=== PATIENT | male | born 1975 | race Caucasian/White ===

== ENCOUNTER → 2017-12-12 | Outpatient (CLI) | payer BC | END | disposition home or self-care (01) | LOC: KCIC MRI 16:40 | DX: S46.012A Strain of muscle(s) and tendon(s) of the rotator cuff of left shoulder, initial encounter (principal); M19.012 Primary osteoarthritis, left shoulder; M25.412 Effusion, left shoulder; X58.XXXA Exposure to other specified factors, initial encounter; Y93.89 Activity, other specified; Y92.89 Other specified places as the place of occurrence of the external cause; Y99.8 Other external cause status | CPT/HCPCS: 73221 ==

== ENCOUNTER 2018-07-16 08:10 | Emergency (ER) | payer BC ==
[~2018-07-16] VITALS: Ht 182.9 cm; Wt 95.3 kg
[~2018-07-16 08:10] MED LIST: AZIT250T6 PO; HYDR-3164 PO; INDO50CA5 PO; LIDO700A4 TP; SERT50TA PO
[2018-07-16 08:37] LABS: BASO % 1 % (0-3); EOS # 0.1 x10^3/uL (0.0-0.7); EOS % 1 % (0-3); HEMATOCRIT 40.9 % (39.0-53.0); HEMOGLOBIN 14.4 g/dL (13.0-17.5); LYMPH # 1.6 x10^3/uL (1.0-4.8); LYMPH % 32 % (24-48); MEAN CORPUSCULAR HEMOGLOBIN 31 pg (25-35); MEAN CORPUSCULAR HGB CONC 35 g/dL (31-37); MEAN CORPUSCULAR VOLUME 87 fL (79-100); MONO # 0.5 x10^3/uL (0.0-1.1); MONO % 9 % (0-9); NEUT # 2.9 x10^3uL (1.8-7.7); NEUT % 57 % (31-73); PLATELET COUNT 178 x10^3/uL (140-400); RED BLOOD COUNT 4.71 x10^6/uL (4.30-5.70); RED CELL DISTRIBUTION WIDTH 13.1 % (11.5-14.5)
--- NOTE | 2018-07-16 08:40 | PHYS DOC ---
Past Medical History Past Medical History: No Pertinent History Past Surgical History: Cholecystectomy Additional Past Surgical Histo: shoulder sx knee sx Alcohol Use: Occasionally Drug Use: None Adult General Chief Complaint Chief Complaint: HYPOGLYCEMIA HPI HPI 43-year-old male presents to ER via EMS from his workplace for c/o dizziness/ shakes. Patient reports he had gastric bypass 1 year 3 months ago and since then he has had recurrent hypoglycemic episodes without definite diagnosis. Pt denies any symptoms prior to the episode denying chest pain, palpitations, dizziness, or nausea and vomiting. Patient states he did eat breakfast this morning and this is similar to previous episodes were all of a sudden he becomes lightheaded feels like he is going to pass out and is found to have low blood sugar. EMS reported initial blood glucose of 50 they gave oral glucose and recheck they reported his blood glucose to be 109. Patient states following glucose his symptoms had improved at this time he is denying any complaints. Patient states he forgot his glucose tablets as he has been carrying them with him due to these episodes. Patient reports only recent illness with sinus infection 1 month ago otherwise reports he has been feeling good. At time of arrival to ER and during initial exam with pt he is denying any complaints. Review of Systems Review of Systems Constitutional: Denies fever or chills [] Eyes: Denies change in visual acuity, redness, or eye pain [] HENT: Denies nasal congestion or sore throat [] Respiratory: Denies cough or shortness of breath [] Cardiovascular: Denies CP/palpitations GI: Denies abdominal pain, nausea, vomiting, bloody stools or diarrhea [] : Denies dysuria or hematuria [] Musculoskeletal: Denies back/neck pain or joint pain [] Integument: Denies rash or skin lesions [] Neurologic: Denies headache, focal weakness or sensory changes. Reports dizziness/lightheadedness and felt shaky Endocrine: Denies polyuria or polydipsia [] All other systems were reviewed and found to be within normal limits, except as documented in this note. Allergies Allergies Allergies Coded Allergies Type Severity Reaction Last Updated Verified naproxen Allergy Intermediate 08/19/18 Yes Physical Exam Physical Exam Constitutional: Well developed, well nourished, no acute distress, non-toxic appearance. Clear speech HENT: Normocephalic, atraumatic, oropharynx moist, nose normal. [] Eyes: 3mm PERRLA, no nystagmus, conjunctiva normal, no discharge. [] Neck: Normal range of motion, no tenderness, supple, no stridor. [] Cardiovascular: Heart rate regular rhythm, no murmur [] Lungs & Thorax: Bilateral breath sounds clear to auscultation. Resp. equal/ nonlabored Abdomen: Bowel sounds normal, soft/obese, no tenderness or distention Skin: Warm, dry Back: No tenderness, full ROM Extremities: No tenderness, no cyanosis, no clubbing, ROM intact, no edema. [] Neurologic: Alert and oriented X 3, normal motor function, normal sensory function, no focal deficits noted. [] Psychologic: Affect normal, judgement normal, mood normal. [] Current Patient Data Vital Signs Lab Values Laboratory Tests Test 07/16/18 08:20 07/16/18 10:39 White Blood Count 5.0 x10^3/uL (4.0-11.0) Red Blood Count 4.71 x10^6/uL (4.30-5.70) Hemoglobin 14.4 g/dL (13.0-17.5) Hematocrit 40.9 % (39.0-53.0) Mean Corpuscular Volume 87 fL (79-100) Mean Corpuscular Hemoglobin 31 pg (25-35) Mean Corpuscular Hemoglobin Concent 35 g/dL (31-37) Red Cell Distribution Width 13.1 % (11.5-14.5) Platelet Count 178 x10^3/uL (140-400) Neutrophils (%) (Auto) 57 % (31-73) Lymphocytes (%) (Auto) 32 % (24-48) Monocytes (%) (Auto) 9 % (0-9) Eosinophils (%) (Auto) 1 % (0-3) Basophils (%) (Auto) 1 % (0-3) Neutrophils # (Auto) 2.9 x10^3uL (1.8-7.7) Lymphocytes # (Auto) 1.6 x10^3/uL (1.0-4.8) Monocytes # (Auto) 0.5 x10^3/uL (0.0-1.1) Eosinophils # (Auto) 0.1 x10^3/uL (0.0-0.7) Basophils # (Auto) 0.0 x10^3/uL (0.0-0.2) Sodium Level 141 mmol/L (136-145) Potassium Level 3.8 mmol/L (3.5-5.1) Chloride Level 104 mmol/L (98-107) Carbon Dioxide Level 32 mmol/L (21-32) Anion Gap 5 (6-14) L Blood Urea Nitrogen 19 mg/dL (8-26) Creatinine 0.9 mg/dL (0.7-1.3) Estimated GFR (Cockcroft-Gault) 91.3 BUN/Creatinine Ratio 21 (6-20) H Glucose Level 87 mg/dL (70-99) Calcium Level 9.3 mg/dL (8.5-10.1) Total Bilirubin 0.6 mg/dL (0.2-1.0) Aspartate Amino Transferase (AST) 24 U/L (15-37) Alanine Aminotransferase (ALT) 30 U/L (16-63) Alkaline Phosphatase 68 U/L (46-116) Total Protein 7.0 g/dL (6.4-8.2) Albumin 3.6 g/dL (3.4-5.0) Albumin/Globulin Ratio 1.1 (1.0-1.7) Glucose (Fingerstick) 137 mg/dL (70-99) H Laboratory Tests 07/16/18 08:20 Laboratory Tests 07/16/18 08:20 EKG EKG [] Radiology/Procedures Radiology/Procedures [] Course & Med Decision Making Course & Med Decision Making Pertinent Labs reviewed. (See chart for details) 0935: Patient continues to report having no symptoms following oral glucose [employer]PER[employer] to ER. Patient at this time is eating breakfast and in no visible distress. Patient's has arrived bedside. Labs were discussed blood sugar was 87. Patient states since his gastric bypass he has lost close to 185 pounds. Patient did have a Rum alcoholic beverage last night which he typically does not have. Discussed possible alcohol absorption and ongoing issues with hypoglycemia. 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 Will monitor for short time longer and recheck blood sugar prior to discharge. 1045: Patient is having no complaints at this time. Recheck Accu-Chek was 137. In-depth conversation was had with patient and his regarding blood glucose. 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 Patient is going to have follow-up with his primary care physician this week to have further testing and evaluation. Patient feels comfortable with home discharge at this time with no additional tests or monitoring. Patient is denying any dizziness, lightheadedness, chest pain, palpitations, or complaints. Patient's labs were normal limits. Patient has remaining nontoxic in appearance and in no distress. Vital signs have been stable. Patient is alert and oriented �3. Discharge instructions discussed and education provided on signs and symptoms to return to ER for. Staff Physician Addendum: I was working in the ER during the course of this patient's visit. I was available for consultation as needed, but I was not directly involved in the care of this patient. Dragon Disclaimer Dragon Disclaimer This electronic medical record was generated, in whole or in part, using a voice recognition dictation system. Departure Departure Impression: Primary Impression: Low blood sugar Disposition: 01 HOME, SELF-CARE Condition: STABLE Referrals: COLLEEN PENA MD (PCP) Patient Instructions: Hypoglycemia (Low Blood Sugar) Additional Instructions: As discussed follow-up with primary doctor for re-evaluation and discuss low blood sugar. As discuss obtain the glucometer from your doctor and keep a blood sugar diary so your doctor can evaluate fluctuations with your readings. KARINE GAN APRN Jul 16, 2018 08:40 LOLA NINO MD Oct 19, 2018 19:35
[2018-07-16 08:48] LABS: CALCIUM 9.3 mg/dL (8.5-10.1); CREATININE 0.9 mg/dL (0.7-1.3); GFR 91.3; POTASSIUM 3.8 mmol/L (3.5-5.1)
[2018-07-16 08:54] LABS: ALBUMIN 3.6 g/dL (3.4-5.0); ALBUMIN/GLOBULIN RATIO 1.1 (1.0-1.7); TOTAL BILIRUBIN 0.6 mg/dL (0.2-1.0)
[2018-07-16 11:30] VITALS: BP 113/70
== END 2018-07-16 11:48 | disposition home or self-care (01) ==
LOC: ER 08:10
DX: E16.2 Hypoglycemia, unspecified (principal); R42 Dizziness and giddiness; Z90.49 Acquired absence of other specified parts of digestive tract; Z98.84 Bariatric surgery status; Z88.5 Allergy status to narcotic agent
CPT/HCPCS: 36415; 80053; 82962; 85025; 99283

== ENCOUNTER 2018-08-14 19:51 | Inpatient (IN) | payer BC ==
[~2018-08-14] VITALS: Ht 182.9 cm; Wt 103.9 kg
[2018-08-14] MEDS ORDERED: ONDANSETRON ODT 4 MG TAB.RAPDIS. PO PRN (22:15)
[2018-08-14] MEDS ORDERED: MORPHINE SULFATE 4 MG/ML VIAL. IV PRN (22:15)
[2018-08-14] MEDS: IV NORMAL SALINE 1000ML BAG 1,000 ML IV SCH (22:25)
[2018-08-14] MEDS: MORPHINE SULFATE 4 MG/ML VIAL. IV PRN (22:26)
[2018-08-14 22:47] VITALS: BP 137/83
[2018-08-15] MEDS ORDERED: MORPHINE SULFATE 4 MG/ML VIAL. IV PRN
[2018-08-15] MEDS: MESALAMINE ER 250 MG CAPSULE.ER PO SCH ×2 (00:04→09:55)
[2018-08-15] MEDS: FAMOTIDINE 20 MG/2 ML VIAL IVP SCH ×2 (00:05→09:50)
[2018-08-15] MEDS ORDERED: PANT20TA2 PO (00:15)
--- NOTE | 2018-08-15 00:25 | NUR ---
follows low carb, no sugar, no carbonatin diet Addendum: 08/15/18 at 0029 by SERA BOWLES RN Amended: Links added.
[2018-08-15 03:00] VITALS: BP 120/76
[2018-08-15] MEDS: MORPHINE SULFATE 4 MG/ML VIAL. IV PRN ×7 (03:08→22:13)
[2018-08-15 04:43] LABS: BASO % 0 % (0-3); EOS # 0.1 x10^3/uL (0.0-0.7); EOS % 2 % (0-3); HEMOGLOBIN 13.5 g/dL (13.0-17.5); LYMPH # 1.6 x10^3/uL (1.0-4.8); LYMPH % 26 % (24-48); MEAN CORPUSCULAR HEMOGLOBIN 30 pg (25-35); MEAN CORPUSCULAR HGB CONC 34 g/dL (31-37); MEAN CORPUSCULAR VOLUME 88 fL (79-100); MONO # 0.5 x10^3/uL (0.0-1.1); MONO % 9 % (0-9); NEUT # 3.7 x10^3uL (1.8-7.7); NEUT % 62 % (31-73); PLATELET COUNT 155 x10^3/uL (140-400); RED BLOOD COUNT 4.55 x10^6/uL (4.30-5.70); RED CELL DISTRIBUTION WIDTH 13.2 % (11.5-14.5); WHITE BLOOD COUNT 5.9 x10^3/uL (4.0-11.0)
[2018-08-15 04:52] LABS: CALCIUM 8.9 mg/dL (8.5-10.1); GFR 80.8; POTASSIUM 4.2 mmol/L (3.5-5.1)
[2018-08-15 07:00] VITALS: BP 112/70
[2018-08-15] MEDS ORDERED: ONDANSETRON ODT 4 MG TAB.RAPDIS. PO PRN (08:30)
[2018-08-15] MEDS ORDERED: PANTOPRAZOLE IV PUSH 40 MG VIAL. IVP ONE (08:30)
--- NOTE | 2018-08-15 09:59 | PDOC1 ---
History and Physical Date of Admission Date of Admission DATE: 08/15/18 TIME: 09:53 Identification/Chief Complaint Chief Complaint Abdominal pain, epigastric area, for 3-4 days Source Source: Caregiver, Chart review, Patient History of Present Illness History of Present Illness 43-year-old male known to me, I last saw him 2015 when he was here admitted for mild case of diverticulitis or colitis which resolved on conservative treatment. Back then his BMI was 45, in the last 15 months he underwent bariatric surgery care of [facility] and lost 188 pounds and BMI is now 31.1. Never had problems post bariatric surgery; He does NOT have significant past medical history only gout on indomethacin when necessary which has not been bothering him lately. He only takes 3 medications, PPI, multivitamins, and calcium at home. History of present illness started about 4-5 days acute onset epigastric pain mostly in the upper abdomen and periumbilical area. Some nausea but no emesis. No diarrhea. Denies recent sick contacts or travels. Denies fever. Transferred from [place]. Acute abdominal series at [facility] is negative. Blood work negative. Requiring high doses of morphine and asks for more. (8mgs q2) We'll try to GI cocktail. No reports of bowel changes. Recent EGD done prior to bariatric surgery apparently normal. Past Medical History Cardiovascular: No pertinent hx Pulmonary: No pertinent hx GI: Diverticulosis Psych: Depression Musculoskeletal: Other Past Surgical History Past Surgical History: Other (recent bariatric surgery at [facility] last 15 months) Family History Family History: No Significant Social History Smoke: No ALCOHOL: occassional Drugs: None Current Medications Current Medications Current Medications Morphine Sulfate (Morphine Sulfate) 2 mg PRN Q2HR PRN IV MODERATE PAIN Last administered on 08/15/18at 00:36; Start 08/14/18 at 22:15; Stop 08/15/18 at 08:21 ; Status DC Morphine Sulfate (Morphine Sulfate) 4 mg PRN Q2HR PRN IV MODERATE PAIN Last administered on 08/14/18at 22:26; Start 08/14/18 at 22:15 Sodium Chloride 1,000 ml @ 75 mls/hr [id number] IV Last administered on at 22:25; Start 08/14/18 at 22:15 Famotidine (Pepcid Vial) 20 mg BID IVP Last administered on 08/15/18at 00:05; Start 08/14/18 at 22:30 Mesalamine (Pentasa) 250 mg [id number] PO Last administered on 08/15/18at 00:04; Start 08/14/18 at 22:30 Ondansetron HCl (Zofran Odt) 4 mg PRN Q8HRS PRN PO NAUSEA/VOMITING 1ST CHOICE Last administered on 08/15/18at 05:39; Start 08/14/18 at 22:15; Stop 08/15/18 at 08:21; Status DC Metronidazole 100 ml @ 100 mls/hr Q8HRS IV Last administered on 08/15/18at 05: 39; Start 08/14/18 at 23:00 Morphine Sulfate (Morphine Sulfate) 6 mg PRN Q2HR PRN IV SEVERE PAIN Last administered on 08/15/18at 00:01; Start 08/15/18 at 00:00; Stop 08/15/18 at 08:21 ; Status DC Morphine Sulfate (Morphine Sulfate) 8 mg PRN Q2HR PRN IV SEVERE PAIN Last administered on 08/15/18at 05:39; Start 08/15/18 at 00:00 Ondansetron HCl (Zofran Odt) 4 mg Q6HRS PRN PO NAUSEA/VOMITING 1ST CHOICE; Start 08/15/18 at 08:30 Oxycodone/ Acetaminophen (Percocet 10/325) 1 tab PRN Q4HRS PRN PO MODERATE TO SEVERE PAIN; Start 08/15/18 at 08:30 Pantoprazole Sodium (Protonix) 40 mg DAILYAC PO ; Start 08/16/18 at 07:30; Status Cancel Pantoprazole Sodium (PROTONIX VIAL for IV PUSH) 40 mg DAILYAC IVP ; Start at 07:30 Pantoprazole Sodium (PROTONIX VIAL for IV PUSH) 40 mg 1X ONCE IVP ; Start 08/15 at 08:30; Stop 08/15/18 at 08:31; Status DC Active Scripts Active Reported Protonix (Pantoprazole Sodium) 20 Mg Tablet.dr 1 Tab PO DAILY Allergies Allergies: Coded Allergies: naproxen (Verified Allergy, Intermediate, 02/24/16) ROS Review of System Asper history of present illness, the rest of ROS 14 point negative Physical Exam General: Alert, Oriented X3, Cooperative, No acute distress HEENT: Atraumatic, PERRLA, EOMI Lungs: Clear to auscultation, Normal air movement Heart: S1S2, RRR, no thrills, no rubs, no gallops Cardiovascular: S1, S2 Abdomen: Normal bowel sounds, Soft, No tenderness, No hepatosplenomegaly, No masses Male Genitals Exam: normal genitalia, normal prostate Rectal Exam: mass PELVIC: Nml ext genitalia Extremities: No clubbing, No cyanosis, No edema, Normal pulses, No tenderness/ swelling Skin: No rashes, No breakdown, No significant lesion Neuro: Normal gait Psych/Mental Status: Mental status NL, Mood NL Vitals Vitals Vital Signs Date Time Temp Pulse Resp B/P (MAP) Pulse Ox O2 Delivery O2 Flow Rate FiO2 08/15/18 07:00 98.2 51 18 112/70 (84) 97 Room Air 98.2 Labs Labs Laboratory Tests Test 08/15/18 04:10 White Blood Count 5.9 x10^3/uL (4.0-11.0) Red Blood Count 4.55 x10^6/uL (4.30-5.70) Hemoglobin 13.5 g/dL (13.0-17.5) Hematocrit 40.0 % (39.0-53.0) Mean Corpuscular Volume 88 fL (79-100) Mean Corpuscular Hemoglobin 30 pg (25-35) Mean Corpuscular Hemoglobin Concent 34 g/dL (31-37) Red Cell Distribution Width 13.2 % (11.5-14.5) Platelet Count 155 x10^3/uL (140-400) Neutrophils (%) (Auto) 62 % (31-73) Lymphocytes (%) (Auto) 26 % (24-48) Monocytes (%) (Auto) 9 % (0-9) Eosinophils (%) (Auto) 2 % (0-3) Basophils (%) (Auto) 0 % (0-3) Neutrophils # (Auto) 3.7 x10^3uL (1.8-7.7) Lymphocytes # (Auto) 1.6 x10^3/uL (1.0-4.8) Monocytes # (Auto) 0.5 x10^3/uL (0.0-1.1) Eosinophils # (Auto) 0.1 x10^3/uL (0.0-0.7) Basophils # (Auto) 0.0 x10^3/uL (0.0-0.2) Sodium Level 139 mmol/L (136-145) Potassium Level 4.2 mmol/L (3.5-5.1) Chloride Level 102 mmol/L (98-107) Carbon Dioxide Level 30 mmol/L (21-32) Anion Gap 7 (6-14) Blood Urea Nitrogen 14 mg/dL (8-26) Creatinine 1.0 mg/dL (0.7-1.3) Estimated GFR (Cockcroft-Gault) 80.8 Glucose Level 101 mg/dL (70-99) Calcium Level 8.9 mg/dL (8.5-10.1) Laboratory Tests Test 08/15/18 04:10 White Blood Count 5.9 x10^3/uL (4.0-11.0) Red Blood Count 4.55 x10^6/uL (4.30-5.70) Hemoglobin 13.5 g/dL (13.0-17.5) Hematocrit 40.0 % (39.0-53.0) Mean Corpuscular Volume 88 fL (79-100) Mean Corpuscular Hemoglobin 30 pg (25-35) Mean Corpuscular Hemoglobin Concent 34 g/dL (31-37) Red Cell Distribution Width 13.2 % (11.5-14.5) Platelet Count 155 x10^3/uL (140-400) Neutrophils (%) (Auto) 62 % (31-73) Lymphocytes (%) (Auto) 26 % (24-48) Monocytes (%) (Auto) 9 % (0-9) Eosinophils (%) (Auto) 2 % (0-3) Basophils (%) (Auto) 0 % (0-3) Neutrophils # (Auto) 3.7 x10^3uL (1.8-7.7) Lymphocytes # (Auto) 1.6 x10^3/uL (1.0-4.8) Monocytes # (Auto) 0.5 x10^3/uL (0.0-1.1) Eosinophils # (Auto) 0.1 x10^3/uL (0.0-0.7) Basophils # (Auto) 0.0 x10^3/uL (0.0-0.2) Sodium Level 139 mmol/L (136-145) Potassium Level 4.2 mmol/L (3.5-5.1) Chloride Level 102 mmol/L (98-107) Carbon Dioxide Level 30 mmol/L (21-32) Anion Gap 7 (6-14) Blood Urea Nitrogen 14 mg/dL (8-26) Creatinine 1.0 mg/dL (0.7-1.3) Estimated GFR (Cockcroft-Gault) 80.8 Glucose Level 101 mg/dL (70-99) Calcium Level 8.9 mg/dL (8.5-10.1) VTE Prophylaxis Ordered VTE Prophylaxis Devices: Yes VTE Pharmacological Prophylaxi: Yes Assessment/Plan Assessment/Plan Abdominal pain, unclear etiology-acute abdominal series negative, blood work negative-await GI consult I do not see the need for GS to see the patient Recent bariatric surgery 15 months ago, [facility]-lost 188 pounds History of gout on indomethacin-has not been bothering him for quite a while now Obesity/overweight BMI 31.1 Plan: trial of GI cocktail Decrease morphine to 4 mg 8 mg every 2 when necessary I did order GI soft - I do not see any for nothing by mouth May cancel GS consult Advance diet as tolerated-await for GI Rounds-if no further further tests might be able to discharge home once tolerating diet ERIC CHAMPION MD Aug 15, 2018 09:59
[2018-08-15 10:00] VITALS: BP 112/75
[2018-08-15] MEDS ORDERED: LIDO:MAALOX 1:1 20 ML SINGLE DOSE. SWSW ONE (10:00)
[2018-08-15] MEDS ORDERED: MAGNESIUM HYDROXIDE 2,400 MG/30 ML ORAL.SUSP. PO PRN (10:00)
[2018-08-15] MEDS ORDERED: POLYETHYLENE GLYCOL 3350 17 GM PACKET. PO PRN (10:00)
--- NOTE | 2018-08-15 10:08 | PDOC2 ---
GI CONSULT Reason For Consult: Abd pain HPI: HPI: 43 y/o male transferred from [facility]. Upper abd pain (epigastric and wrapping around both sides to back) since Saturday morning. No precipitating events. Describes pain as "constant" but difficult to describe character. Some nausea w /o vomiting. Unaffected by eating or stooling. At [facility]: labs unremarkable except AST 67. Note normal amylase and lipase not checked. Acute abd series and CT abd unrevealing. H/o GERD controlled w/ pantoprazole QD for about 1.5 years. No dysphagia. No chronic nausea or abd pain issues. No hematochezia or melena. No constipation or diarrhea. Weight loss of 185 pounds since Melody-en-Y 15 months ago w/ Dr. Perez at Bariatric. Says an EGD was done that day before surgery. Also had a colonoscopy about five years ago after an episode of diverticulitis. Says polyps were removed but he wasn't told when to return for screening. S/p cholecystectomy (can't remember if had stones). Reports fatty liver w/ elevated LFTs prior to gastric bypass - says both resolved now. No pancreas history. No NSAIDs. Positive for C Diff in 2016. After I saw him, I noticed his ordered medications included Pentasa - I called his room to discuss. He denies h/o IBD and says he does not take Pentasa. He also has orders for IV H2 lauryn, PPI, Miralax, and GI cocktail. PMH: PMH: HTN, RICHARD, gout, fatty liver - not an issue since gastric bypass/weight loss depression, GERD, colon polyps, diverticulitis, C Diff, campylobacter Melody-en-Y, vasectomy FH: Family History: Other (adopted) Social History: Smoke: Quit ALCOHOL: occassional (1-2 drinks once or twice weekly) Drugs: None ROS: GEN: Denies fevers, chills, sweats HEENT: Denies blurred vision, sore throat CV: Denies chest pain RESP: Denies shortness of air, cough GI: Per HPI : Denies hematuria, dysuria ENDO: +intentional weight loss NEURO: Denies confusion, dizziness MSK: Denies weakness, joint pain/swelling SKIN: Denies jaundice, pruritus Vitals: Vitals: Vital Signs Date Time Temp Pulse Resp B/P (MAP) Pulse Ox O2 Delivery O2 Flow Rate FiO2 08/15/18 10:07 Room Air 08/15/18 07:00 98.2 51 18 112/70 (84) 97 98.2 Labs: Labs: Laboratory Tests Test 08/15/18 04:10 White Blood Count 5.9 x10^3/uL (4.0-11.0) Red Blood Count 4.55 x10^6/uL (4.30-5.70) Hemoglobin 13.5 g/dL (13.0-17.5) Hematocrit 40.0 % (39.0-53.0) Mean Corpuscular Volume 88 fL (79-100) Mean Corpuscular Hemoglobin 30 pg (25-35) Mean Corpuscular Hemoglobin Concent 34 g/dL (31-37) Red Cell Distribution Width 13.2 % (11.5-14.5) Platelet Count 155 x10^3/uL (140-400) Neutrophils (%) (Auto) 62 % (31-73) Lymphocytes (%) (Auto) 26 % (24-48) Monocytes (%) (Auto) 9 % (0-9) Eosinophils (%) (Auto) 2 % (0-3) Basophils (%) (Auto) 0 % (0-3) Neutrophils # (Auto) 3.7 x10^3uL (1.8-7.7) Lymphocytes # (Auto) 1.6 x10^3/uL (1.0-4.8) Monocytes # (Auto) 0.5 x10^3/uL (0.0-1.1) Eosinophils # (Auto) 0.1 x10^3/uL (0.0-0.7) Basophils # (Auto) 0.0 x10^3/uL (0.0-0.2) Sodium Level 139 mmol/L (136-145) Potassium Level 4.2 mmol/L (3.5-5.1) Chloride Level 102 mmol/L (98-107) Carbon Dioxide Level 30 mmol/L (21-32) Anion Gap 7 (6-14) Blood Urea Nitrogen 14 mg/dL (8-26) Creatinine 1.0 mg/dL (0.7-1.3) Estimated GFR (Cockcroft-Gault) 80.8 Glucose Level 101 mg/dL (70-99) Calcium Level 8.9 mg/dL (8.5-10.1) Allergies: Coded Allergies: naproxen (Verified Allergy, Intermediate, 02/24/16) Medications: Current Medications Medications (Trade) Dose Ordered Sig/Bushra Route PRN Reason Start Time Stop Time Status Last Admin Dose Admin Morphine Sulfate (Morphine Sulfate) 2 mg PRN Q2HR PRN IV MODERATE PAIN 08/14/18 22:15 08/15/18 08:21 DC 08/15/18 00:36 Morphine Sulfate (Morphine Sulfate) 4 mg PRN Q2HR PRN IV MODERATE PAIN 08/14/18 22:15 08/15/18 10:07 Sodium Chloride 1,000 ml @ 75 mls/hr [id number] IV 08/14/18 22:15 08/14/18 22:25 Famotidine (Pepcid Vial) 20 mg BID IVP 08/14/18 22:30 08/15/18 09:50 Mesalamine (Pentasa) 250 mg [id number] PO 08/14/18 22:30 08/15/18 09:55 Ondansetron HCl (Zofran Odt) 4 mg PRN Q8HRS PRN PO NAUSEA/VOMITING 1ST CHOICE 08/14/18 22:15 08/15/18 08:21 DC 08/15/18 05:39 Metronidazole 100 ml @ 100 mls/hr Q8HRS IV 08/14/18 23:00 08/15/18 05:39 Morphine Sulfate (Morphine Sulfate) 6 mg PRN Q2HR PRN IV SEVERE PAIN 08/15/18 00:00 08/15/18 08:21 DC 08/15/18 00:01 Morphine Sulfate (Morphine Sulfate) 8 mg PRN Q2HR PRN IV SEVERE PAIN 08/15/18 00:00 08/15/18 09:53 DC 08/15/18 05:39 Pantoprazole Sodium (PROTONIX VIAL for IV PUSH) 40 mg 1X ONCE IVP 08/15/18 08:30 08/15/18 08:31 DC 08/15/18 09:54 Imaging: Imaging: Please see [facility] records. PE: GEN: NAD HEENT: Atraumatic, PERRL LUNGS: CTAB HEART: RRR ABD: BS+, soft, epigastric discomfort to BUQ EXTREMITY: No edema SKIN: No rashes, no jaundice NEURO/PSYCH: A & O 3 A/P: A/P: Upper abd pain, nausea GERD - on PPI H/o Melody-en-Y CRC screen, h/o polyps - thinks colonoscopy performed ~5 years ago Diverticular disease S/p cholecystectomy -- Unclear why he has Pentasa ordered - he says he does not take this and denies h/ o IBD - would stop this. Will continue PPI and stop H2 lauryn. Okay to try GI cocktail. Additional recs per Dr. Hanson - keep NPO for now. SANDOR ROBERTSON Aug 15, 2018 10:08
--- NOTE | 2018-08-15 10:55 | NUR ---
SW following for discharge planning. Discussed with RN, pt is from home with . RN denied any SW needs at this time. SW will continue to follow.
[2018-08-15 15:00] VITALS: BP 116/83
[2018-08-15] MEDS: IV NORMAL SALINE 1000ML BAG 1,000 ML IV SCH (17:17)
[2018-08-15] MEDS: oxyCODONE/APAP 10/325 1 TAB TABLET PO PRN (18:20)
[2018-08-15 18:40] VITALS: BP 134/94
[2018-08-15] MEDS ORDERED: HYDROmorphone 2 MG/ML VIAL IV ONE (18:45)
--- NOTE | 2018-08-15 18:45 | NUR ---
Pt. called nurse for pain medication after eating dinner. This got to pt. room and found pt. curled over in bed, shaking back and forth, breathing heavy, sweating, holding stomach and making facial grimaces. Vital signs taken BP 134/94 HR 78 O2 100 Temperature 98.7 (oral). This nurse gave pt. PO pain medication. IV pain medication had been given 1 hour prior. This nurse paged and spoke with Dr. Rice. A one time dose of dilaudid was ordered and given to pt. The patient started to feel relief almost immediately. This nurse spoke with pt. about back down on the diet (pt. currently has GI soft, advance diet as tolerated). This nurse will pass information along in shift report and continue to monitor pt.
--- NOTE | 2018-08-15 20:09 | NUR ---
pt still in svere ab pain, will medicate per MD order, will keep NPO for now .
[2018-08-15] MEDS: LIDO:MAALOX 1:1 20 ML SINGLE DOSE. PO PRN (21:09)
[2018-08-15 23:00] VITALS: BP 149/77
[2018-08-16 03:00] VITALS: BP 126/73
[2018-08-16] MEDS: MORPHINE SULFATE 4 MG/ML VIAL. IV PRN ×4 (03:19→10:59)
[2018-08-16] MEDS: IV NORMAL SALINE 1000ML BAG 1,000 ML IV SCH (03:24)
[2018-08-16 07:00] VITALS: BP 117/75
[2018-08-16] MEDS ORDERED: PANTOPRAZOLE IV PUSH 40 MG VIAL. IVP SCH (07:30)
[2018-08-16] MEDS ORDERED: PANTOPRAZOLE 40 MG TABLET.DR. PO SCH ×2 (07:30)
--- NOTE | 2018-08-16 09:47 | PDOC ---
PROGRESS NOTES Chief Complaint Chief Complaint Abdominal pain, unclear etiology-acute abdominal series negative, blood work negative- Recent bariatric surgery- Melody-en-Y bypass 15 months ago, [facility]-lost 188 pounds History of gout on indomethacin-has not been bothering him for quite a while now Obesity/overweight BMI 31.1 History of Present Illness History of Present Illness Still significant abdominal pain and got almost instant relief with IV Dilaudid last night Needed to back down from regular tray to nothing by mouth Plan: unable to DC today unfortunately Dilaudid I made every 3 when necessary Liquid diet then ADA T Hopefully DC tomorrow when tolerating by mouth--discussed my plan with him Vitals Vitals Vital Signs Date Time Temp Pulse Resp B/P (MAP) Pulse Ox O2 Delivery O2 Flow Rate FiO2 08/16/18 08:50 Room Air 08/16/18 07:00 97.8 47 18 117/75 (89) 96 97.8 Physical Exam General: Alert, Oriented X3, Cooperative, No acute distress Heart: Regular rate, Normal S1, Normal S2 Lungs: Clear Abdomen: Normal bowel sounds, Soft, No tenderness, No hepatosplenomegaly, No masses Extremities: No clubbing, No cyanosis, No edema, Normal pulses, No tenderness/ swelling Skin: No rashes, No breakdown, No significant lesion Review of Systems Review of Systems abd pain, nausea, emesis, the rest of ROS 14 point negative Comment Review of Relevant I have reviewed the following items ismael (where applicable) has been applied. Labs Laboratory Tests Test 08/15/18 04:10 White Blood Count 5.9 x10^3/uL (4.0-11.0) Red Blood Count 4.55 x10^6/uL (4.30-5.70) Hemoglobin 13.5 g/dL (13.0-17.5) Hematocrit 40.0 % (39.0-53.0) Mean Corpuscular Volume 88 fL (79-100) Mean Corpuscular Hemoglobin 30 pg (25-35) Mean Corpuscular Hemoglobin Concent 34 g/dL (31-37) Red Cell Distribution Width 13.2 % (11.5-14.5) Platelet Count 155 x10^3/uL (140-400) Neutrophils (%) (Auto) 62 % (31-73) Lymphocytes (%) (Auto) 26 % (24-48) Monocytes (%) (Auto) 9 % (0-9) Eosinophils (%) (Auto) 2 % (0-3) Basophils (%) (Auto) 0 % (0-3) Neutrophils # (Auto) 3.7 x10^3uL (1.8-7.7) Lymphocytes # (Auto) 1.6 x10^3/uL (1.0-4.8) Monocytes # (Auto) 0.5 x10^3/uL (0.0-1.1) Eosinophils # (Auto) 0.1 x10^3/uL (0.0-0.7) Basophils # (Auto) 0.0 x10^3/uL (0.0-0.2) Sodium Level 139 mmol/L (136-145) Potassium Level 4.2 mmol/L (3.5-5.1) Chloride Level 102 mmol/L (98-107) Carbon Dioxide Level 30 mmol/L (21-32) Anion Gap 7 (6-14) Blood Urea Nitrogen 14 mg/dL (8-26) Creatinine 1.0 mg/dL (0.7-1.3) Estimated GFR (Cockcroft-Gault) 80.8 Glucose Level 101 mg/dL (70-99) Calcium Level 8.9 mg/dL (8.5-10.1) Lipase 143 U/L (73-393) Medications Current Medications Morphine Sulfate (Morphine Sulfate) 2 mg PRN Q2HR PRN IV MODERATE PAIN Last administered on 08/15/18at 00:36; Start 08/14/18 at 22:15; Stop 08/15/18 at 08:21 ; Status DC Morphine Sulfate (Morphine Sulfate) 4 mg PRN Q2HR PRN IV MODERATE PAIN Last administered on 08/16/18at 08:50; Start 08/14/18 at 22:15 Sodium Chloride 1,000 ml @ 75 mls/hr [id number] IV Last administered on at 03:24; Start 08/14/18 at 22:15 Famotidine (Pepcid Vial) 20 mg BID IVP Last administered on 08/15/18at 09:50; Start 08/14/18 at 22:30; Stop 08/15/18 at 10:53; Status DC Mesalamine (Pentasa) 250 mg [id number] PO Last administered on 08/15/18 09:55; Start 08/14/18 at 22:30; Stop 08/15/18 at 10:53; Status DC Ondansetron HCl (Zofran Odt) 4 mg PRN Q8HRS PRN PO NAUSEA/VOMITING 1ST CHOICE Last administered on 08/15/18 05:39; Start 08/14/18 at 22:15; Stop 08/15/18 at 08:21; Status DC Metronidazole 100 ml @ 100 mls/hr Q8HRS IV Last administered on 08/16/18 05: 58; Start 08/14/18 at 23:00 Morphine Sulfate (Morphine Sulfate) 6 mg PRN Q2HR PRN IV SEVERE PAIN Last administered on 08/15/18 00:01; Start 08/15/18 at 00:00; Stop 08/15/18 at 08:21 ; Status DC Morphine Sulfate (Morphine Sulfate) 8 mg PRN Q2HR PRN IV SEVERE PAIN Last administered on 08/15/18 05:39; Start 08/15/18 at 00:00; Stop 08/15/18 at 09:53 ; Status DC Ondansetron HCl (Zofran Odt) 4 mg Q6HRS PRN PO NAUSEA/VOMITING 1ST CHOICE; Start 08/15/18 at 08:30 Oxycodone/ Acetaminophen (Percocet 10/325) 1 tab PRN Q4HRS PRN PO MODERATE TO SEVERE PAIN Last administered on 08/15/18at 18:20; Start 08/15/18 at 08:30 Pantoprazole Sodium (Protonix) 40 mg DAILYAC PO ; Start 08/16/18 at 07:30; Status Cancel Pantoprazole Sodium (PROTONIX VIAL for IV PUSH) 40 mg DAILYAC IVP ; Start at 07:30; Stop 08/16/18 at 07:30; Status DC Pantoprazole Sodium (PROTONIX VIAL for IV PUSH) 40 mg 1X ONCE IVP Last administered on 08/15/18at 09:54; Start 08/15/18 at 08:30; Stop 08/15/18 at 08:31 ; Status DC Multi-Ingredient Mouthwash/Gargle (Gi Cocktail) 20 ml 1X ONCE SWSW Last administered on 08/15/18at 11:01; Start 08/15/18 at 10:00; Stop 08/15/18 at 10:01 ; Status DC Multi-Ingredient Mouthwash/Gargle (Gi Cocktail) 20 ml PRN QID PRN PO CHEST PAIN Last administered on 08/15/18at 21:09; Start 08/15/18 at 10:00 Magnesium Hydroxide (Milk Of Magnesia) 2,400 mg PRN DAILY PRN PO CONSTIPATION ( 1st Choice); Start 08/15/18 at 10:00 Polyethylene Glycol (miraLAX PACKET) 17 gm PRN DAILY PRN PO CONSTIPATION (2nd Choice); Start 08/15/18 at 10:00 Pantoprazole Sodium (Protonix) 40 mg DAILYAC PO Last administered on 08/16/18at 06:02; Start 08/16/18 at 07:30 Hydromorphone HCl (Dilaudid) 1 mg 1X ONCE IV Last administered on 08/15/18at 18 :45; Start 08/15/18 at 18:45; Stop 08/15/18 at 18:46; Status DC Hydromorphone HCl (Dilaudid) 1 mg PRN Q4HRS PRN IV MODERATE PAIN, 2ND CHOICE; Start 08/16/18 at 08:30 Active Scripts Active Reported Protonix (Pantoprazole Sodium) 20 Mg Tablet.dr 1 Tab PO DAILY Vitals/I & O Vital Sign - Last 24 Hours 08/15/18 08/15/18 08/15/18 08/15/18 10:00 10:07 14:32 15:00 Temp 98.0 98.0 98.0 98.0 Pulse 47 62 Resp 18 18 B/P (MAP) 112/75 (87) 116/83 (94) Pulse Ox 99 99 O2 Delivery Room Air Room Air Room Air Room Air 08/15/18 08/15/18 08/15/18 08/15/18 17:16 18:20 18:40 18:45 Temp 98.7 98.7 Pulse 78 B/P (MAP) 134/94 (107) O2 Delivery Room Air Room Air Room Air 08/15/18 08/15/18 08/15/18 08/15/18 19:20 19:20 19:46 20:00 Resp 20 20 20 Pulse Ox 99 99 99 O2 Delivery Room Air Room Air Room Air Room Air 08/15/18 08/15/18 08/16/18 08/16/18 22:13 23:00 03:00 03:19 Temp 98.4 97.9 98.4 97.9 Pulse 49 53 Resp 20 18 18 20 B/P (MAP) 149/77 (101) 126/73 (90) Pulse Ox 99 93 100 93 O2 Delivery Room Air Room Air Room Air Room Air 08/16/18 08/16/18 08/16/18 08/16/18 06:01 06:31 07:00 08:50 Temp 97.8 97.8 Pulse 47 Resp 20 18 18 B/P (MAP) 117/75 (89) Pulse Ox 98 98 96 O2 Delivery Room Air Room Air Room Air Room Air Intake and Output 08/15/18 08/15/18 08/16/18 14:59 22:59 06:59 Intake Total 1100 ml 1450 ml Output Total 0 ml Balance 1100 ml 1450 ml ERIC CHAMPION MD Aug 16, 2018 09:46
[2018-08-16 11:00] VITALS: BP 113/77
[2018-08-16] MEDS: HYDROmorphone 2 MG/ML VIAL IV PRN ×3 (12:16→21:16)
[2018-08-16] MEDS: LIDO:MAALOX 1:1 20 ML SINGLE DOSE. PO PRN (14:05)
[2018-08-16 15:00] VITALS: BP 123/72
--- NOTE | 2018-08-16 15:12 | PDOC ---
Subjective: Subjective: Complains of two pains 1) lower abdominal that is constant 5/10 2) upper abdominal that is postprandial Objective: Vital Signs: Vital Signs Date Time Temp Pulse Resp B/P (MAP) Pulse Ox O2 Delivery O2 Flow Rate FiO2 08/16/18 14:04 Room Air 08/16/18 11:00 98.3 48 18 113/77 (89) 99 98.3 Labs: none today Physical Exam: Physical Exam: PE: GEN: NAD HEENT: Atraumatic, PERRL LUNGS: CTAB HEART: RRR ABD: BS+, soft, epigastric discomfort to BUQ EXTREMITY: No edema SKIN: No rashes, no jaundice NEURO/PSYCH: A & O 3 Assessment & Plan: Assessment : Upper abd pain, nausea Lower abd pain GERD - on PPI H/o Melody-en-Y CRC screen, h/o polyps - thinks colonoscopy performed ~5 years ago Diverticular disease S/p cholecystectomy Plan: 1) Trial of Miralax for ?constipation- no BM since Saturday. If no BM, consider Relistor on Dilaudid 2) Start IV PPI 3) If no improvement, EGD early next week SIDRA TRAN MD Aug 16, 2018 15:12
[2018-08-16] MEDS: POLYETHYLENE GLYCOL 3350 17 GM PACKET. PO SCH (16:38)
[2018-08-16 19:00] VITALS: BP 129/84
[2018-08-16 23:00] VITALS: BP 120/76
[2018-08-17 03:23] VITALS: BP 126/76
[2018-08-17] MEDS: HYDROmorphone 2 MG/ML VIAL IV PRN ×5 (04:19→22:15)
[2018-08-17 05:48] LABS: ALBUMIN 3.5 g/dL (3.4-5.0); ALBUMIN/GLOBULIN RATIO 1.2 (1.0-1.7); CALCIUM 9.2 mg/dL (8.5-10.1); GFR 80.8; TOTAL PROTEIN 6.5 g/dL (6.4-8.2)
[2018-08-17 07:21] VITALS: BP 109/59
[2018-08-17] MEDS: PANTOPRAZOLE IV PUSH 40 MG VIAL. IVP SCH (08:00)
[2018-08-17] MEDS: POLYETHYLENE GLYCOL 3350 17 GM PACKET. PO SCH (08:01)
--- NOTE | 2018-08-17 09:14 | PDOC ---
PROGRESS NOTES Chief Complaint Chief Complaint Abdominal pain, unclear etiology-acute abdominal series negative, blood work negative- Persistent emesis Recent bariatric surgery- Melody-en-Y bypass 15 months ago, [facility]-lost 188 pounds History of gout on indomethacin-has not been bothering him for quite a while now Obesity/overweight BMI 31.1 History of Present Illness History of Present Illness Still significant abdominal pain , some relief with IV Dilaudid This is our second attempt to try to advance diet but every time he advances diet, he vomits Now back on liquid diet Acute abdominal series at [facility]-(he was a transfer on admission)-was normal Blood work normal NOn dm Plan: do gastric emptying test I am unsure of the cause of persistent vomiting Maintain liquid diet for now and do not advance for this Saturday Await GI Rounds Saturday Vitals Vitals Vital Signs Date Time Temp Pulse Resp B/P (MAP) Pulse Ox O2 Delivery O2 Flow Rate FiO2 08/17/18 08:42 Room Air 08/17/18 07:21 97.7 46 18 109/59 (76) 100 97.7 Physical Exam General: Alert, Oriented X3, Cooperative, No acute distress Heart: Regular rate, Normal S1, Normal S2 Lungs: Clear Abdomen: Normal bowel sounds, Soft, No tenderness, No hepatosplenomegaly, No masses Extremities: No clubbing, No cyanosis, No edema, Normal pulses, No tenderness/ swelling Skin: No rashes, No breakdown, No significant lesion Labs LABS Laboratory Tests Test 08/17/18 04:40 Sodium Level 138 mmol/L (136-145) Potassium Level 4.0 mmol/L (3.5-5.1) Chloride Level 100 mmol/L (98-107) Carbon Dioxide Level 30 mmol/L (21-32) Anion Gap 8 (6-14) Blood Urea Nitrogen 12 mg/dL (8-26) Creatinine 1.0 mg/dL (0.7-1.3) Estimated GFR (Cockcroft-Gault) 80.8 BUN/Creatinine Ratio 12 (6-20) Glucose Level 85 mg/dL (70-99) Calcium Level 9.2 mg/dL (8.5-10.1) Total Bilirubin 1.0 mg/dL (0.2-1.0) Aspartate Amino Transf (AST/SGOT) 39 U/L (15-37) Alanine Aminotransferase (ALT/SGPT) 62 U/L (16-63) Alkaline Phosphatase 75 U/L (46-116) Total Protein 6.5 g/dL (6.4-8.2) Albumin 3.5 g/dL (3.4-5.0) Albumin/Globulin Ratio 1.2 (1.0-1.7) Review of Systems Review of Systems Persistent vomiting, abdominal pain, no fever, the rest of ROS 14 point negative Comment Review of Relevant I have reviewed the following items ismael (where applicable) has been applied. Labs Laboratory Tests Test 08/17/18 04:40 Sodium Level 138 mmol/L (136-145) Potassium Level 4.0 mmol/L (3.5-5.1) Chloride Level 100 mmol/L (98-107) Carbon Dioxide Level 30 mmol/L (21-32) Anion Gap 8 (6-14) Blood Urea Nitrogen 12 mg/dL (8-26) Creatinine 1.0 mg/dL (0.7-1.3) Estimated GFR (Cockcroft-Gault) 80.8 BUN/Creatinine Ratio 12 (6-20) Glucose Level 85 mg/dL (70-99) Calcium Level 9.2 mg/dL (8.5-10.1) Total Bilirubin 1.0 mg/dL (0.2-1.0) Aspartate Amino Transf (AST/SGOT) 39 U/L (15-37) Alanine Aminotransferase (ALT/SGPT) 62 U/L (16-63) Alkaline Phosphatase 75 U/L (46-116) Total Protein 6.5 g/dL (6.4-8.2) Albumin 3.5 g/dL (3.4-5.0) Albumin/Globulin Ratio 1.2 (1.0-1.7) Laboratory Tests Test 08/17/18 04:40 Sodium Level 138 mmol/L (136-145) Potassium Level 4.0 mmol/L (3.5-5.1) Chloride Level 100 mmol/L (98-107) Carbon Dioxide Level 30 mmol/L (21-32) Anion Gap 8 (6-14) Blood Urea Nitrogen 12 mg/dL (8-26) Creatinine 1.0 mg/dL (0.7-1.3) Estimated GFR (Cockcroft-Gault) 80.8 BUN/Creatinine Ratio 12 (6-20) Glucose Level 85 mg/dL (70-99) Calcium Level 9.2 mg/dL (8.5-10.1) Total Bilirubin 1.0 mg/dL (0.2-1.0) Aspartate Amino Transf (AST/SGOT) 39 U/L (15-37) Alanine Aminotransferase (ALT/SGPT) 62 U/L (16-63) Alkaline Phosphatase 75 U/L (46-116) Total Protein 6.5 g/dL (6.4-8.2) Albumin 3.5 g/dL (3.4-5.0) Albumin/Globulin Ratio 1.2 (1.0-1.7) Medications Current Medications Morphine Sulfate (Morphine Sulfate) 2 mg PRN Q2HR PRN IV MODERATE PAIN Last administered on 08/15/18at 00:36; Start 08/14/18 at 22:15; Stop 08/15/18 at 08:21 ; Status DC Morphine Sulfate (Morphine Sulfate) 4 mg PRN Q2HR PRN IV MODERATE PAIN Last administered on 08/16/18at 10:59; Start 08/14/18 at 22:15 Sodium Chloride 1,000 ml @ 75 mls/hr [id number] IV Last administered on at 03:24; Start 08/14/18 at 22:15; Stop 08/16/18 at 09:45; Status DC Famotidine (Pepcid Vial) 20 mg BID IVP Last administered on 08/15/18at 09:50; Start 08/14/18 at 22:30; Stop 08/15/18 at 10:53; Status DC Mesalamine (Pentasa) 250 mg [id number] PO Last administered on 08/15/18at 09:55; Start 08/14/18 at 22:30; Stop 08/15/18 at 10:53; Status DC Ondansetron HCl (Zofran Odt) 4 mg PRN Q8HRS PRN PO NAUSEA/VOMITING 1ST CHOICE Last administered on 08/15/18at 05:39; Start 08/14/18 at 22:15; Stop 08/15/18 at 08:21; Status DC Metronidazole 100 ml @ 100 mls/hr Q8HRS IV Last administered on 08/17/18at 05: 35; Start 08/14/18 at 23:00 Morphine Sulfate (Morphine Sulfate) 6 mg PRN Q2HR PRN IV SEVERE PAIN Last administered on 08/15/18at 00:01; Start 08/15/18 at 00:00; Stop 08/15/18 at 08:21 ; Status DC Morphine Sulfate (Morphine Sulfate) 8 mg PRN Q2HR PRN IV SEVERE PAIN Last administered on 08/15/18at 05:39; Start 08/15/18 at 00:00; Stop 08/15/18 at 09:53 ; Status DC Ondansetron HCl (Zofran Odt) 4 mg Q6HRS PRN PO NAUSEA/VOMITING 1ST CHOICE; Start 08/15/18 at 08:30 Oxycodone/ Acetaminophen (Percocet 10/325) 1 tab PRN Q4HRS PRN PO MODERATE TO SEVERE PAIN Last administered on 08/15/18at 18:20; Start 08/15/18 at 08:30 Pantoprazole Sodium (Protonix) 40 mg DAILYAC PO ; Start 08/16/18 at 07:30; Status Cancel Pantoprazole Sodium (PROTONIX VIAL for IV PUSH) 40 mg DAILYAC IVP ; Start at 07:30; Stop 08/16/18 at 07:30; Status DC Pantoprazole Sodium (PROTONIX VIAL for IV PUSH) 40 mg 1X ONCE IVP Last administered on 08/15/18at 09:54; Start 08/15/18 at 08:30; Stop 08/15/18 at 08:31 ; Status DC Multi-Ingredient Mouthwash/Gargle (Gi Cocktail) 20 ml 1X ONCE SWSW Last administered on 08/15/18at 11:01; Start 08/15/18 at 10:00; Stop 08/15/18 at 10:01 ; Status DC Multi-Ingredient Mouthwash/Gargle (Gi Cocktail) 20 ml PRN QID PRN PO CHEST PAIN Last administered on 08/16/18at 14:05; Start 08/15/18 at 10:00 Magnesium Hydroxide (Milk Of Magnesia) 2,400 mg PRN DAILY PRN PO CONSTIPATION ( 1st Choice); Start 08/15/18 at 10:00 Polyethylene Glycol (miraLAX PACKET) 17 gm PRN DAILY PRN PO CONSTIPATION (2nd Choice); Start 08/15/18 at 10:00 Pantoprazole Sodium (Protonix) 40 mg DAILYAC PO Last administered on 08/16/18at 06:02; Start 08/16/18 at 07:30; Stop 08/16/18 at 15:13; Status DC Hydromorphone HCl (Dilaudid) 1 mg 1X ONCE IV Last administered on 08/15/18at 18 :45; Start 08/15/18 at 18:45; Stop 08/15/18 at 18:46; Status DC Hydromorphone HCl (Dilaudid) 1 mg PRN Q4HRS PRN IV MODERATE PAIN, 2ND CHOICE Last administered on 08/17/18at 08:42; Start 08/16/18 at 08:30 Pantoprazole Sodium (PROTONIX VIAL for IV PUSH) 40 mg DAILYAC IVP Last administered on 08/17/18at 08:00; Start 08/17/18 at 07:30 Polyethylene Glycol (miraLAX PACKET) 17 gm DAILY PO Last administered on at 08:01; Start 08/16/18 at 17:00 Active Scripts Active Reported Protonix (Pantoprazole Sodium) 20 Mg Tablet.dr 1 Tab PO DAILY Vitals/I & O Vital Sign - Last 24 Hours 08/16/18 08/16/18 08/16/18 08/16/18 10:59 11:00 12:16 12:17 Temp 98.3 98.3 Pulse 48 Resp 18 B/P (MAP) 113/77 (89) Pulse Ox 99 O2 Delivery Room Air Room Air Room Air Room Air 08/16/18 08/16/18 08/16/18 08/16/18 15:00 16:36 19:00 20:00 Temp 98.4 98.1 98.4 98.1 Pulse 52 48 Resp 18 18 B/P (MAP) 123/72 (89) 129/84 (99) Pulse Ox 99 97 O2 Delivery Room Air Room Air Room Air 08/16/18 08/16/18 08/16/18 08/17/18 21:16 22:19 23:00 03:23 Temp 98.1 98.6 98.1 98.6 Pulse 46 47 Resp 18 18 18 18 B/P (MAP) 120/76 (91) 126/76 (93) Pulse Ox 97 98 99 O2 Delivery Room Air 08/17/18 08/17/18 08/17/1808/17/19 04:19 04:52 07:21 08:42 Temp 97.7 97.7 Pulse 46 Resp 18 18 B/P (MAP) 109/59 (76) Pulse Ox 98 98 100 O2 Delivery Room Air Room Air Room Air Room Air Intake and Output 08/16/18 08/16/18 08/17/18 15:00 23:00 07:00 Intake Total 1000 ml 320 ml 340 ml Balance 1000 ml 320 ml 340 ml ERIC CHAMPION MD Aug 17, 2018 09:14
[2018-08-17 10:54] VITALS: BP 119/75
--- NOTE | 2018-08-17 14:44 | RAD ---
Three-view acute abdominal series. HISTORY: Persistent emesis 3 views were taken for an acute abdominal series. Lungs are clear on the PA chest. Heart is normal in size. There is no effusion. There is no free air on the upright view the abdomen or abnormal air-fluid levels. The patient's had a cholecystectomy. There is moderate stool in the colon. The upper abdomen is not evaluated on the supine view. IMPRESSION: 1. Limited study. 2. No acute infiltrates. 3. No bowel obstruction noted. 4. Moderate stool in the colon. Electronically signed by: Michael Wynn MD (08/17/2018 2:41 PM) [facility]
[2018-08-17 15:00] VITALS: BP 117/75
--- NOTE | 2018-08-17 15:58 | PDOC ---
Subjective: Subjective: NO BM. NO nausea. Still with abd pain Objective: Vital Signs: Vital Signs Date Time Temp Pulse Resp B/P (MAP) Pulse Ox O2 Delivery O2 Flow Rate FiO2 08/17/18 15:00 97.7 47 17 117/75 (89) 97 Room Air 97.7 Labs: Laboratory Tests Test 08/17/18 04:40 08/17/18 04:45 Sodium Level 138 mmol/L (136-145) Potassium Level 4.0 mmol/L (3.5-5.1) Chloride Level 100 mmol/L (98-107) Carbon Dioxide Level 30 mmol/L (21-32) Anion Gap 8 (6-14) Blood Urea Nitrogen 12 mg/dL (8-26) Creatinine 1.0 mg/dL (0.7-1.3) Estimated GFR (Cockcroft-Gault) 80.8 BUN/Creatinine Ratio 12 (6-20) Glucose Level 85 mg/dL (70-99) Calcium Level 9.2 mg/dL (8.5-10.1) Total Bilirubin 1.0 mg/dL (0.2-1.0) Aspartate Amino Transf (AST/SGOT) 39 U/L (15-37) Alanine Aminotransferase (ALT/SGPT) 62 U/L (16-63) Alkaline Phosphatase 75 U/L (46-116) Total Protein 6.5 g/dL (6.4-8.2) Albumin 3.5 g/dL (3.4-5.0) Albumin/Globulin Ratio 1.2 (1.0-1.7) Erythrocyte Sedimentation Rate 5 (0-15) Physical Exam: Physical Exam: GEN: NAD HEENT: OP clear CV: S1S2 without murmurs, rubs, or gallops RESP: CTAB without wheezing, rhonchi, or crackles ABD: NABS, Gen TTP EXT: No edema NEURO: AAO x 3 Assessment & Plan: Assessment : Upper abd pain, nausea Lower abd pain GERD - on PPI H/o Melody-en-Y CRC screen, h/o polyps - thinks colonoscopy performed ~5 years ago Diverticular disease S/p cholecystectomy Plan: 1) Trial of Miralax for ?constipation- no BM since Saturday. Acute abdominal series with moderate stool in colon.If no BM,consider Relistor on Dilaudid 2) Start IV PPI 3) If no improvement, EGD early next week SIDRA TRAN MD Aug 17, 2018 15:58
[2018-08-17 19:00] VITALS: BP 126/74
[2018-08-17 22:53] VITALS: BP 115/66
[2018-08-18 02:49] VITALS: BP 129/72
[2018-08-18 07:00] VITALS: BP 119/83
[2018-08-18] MEDS: POLYETHYLENE GLYCOL 3350 17 GM PACKET. PO SCH (07:49)
[2018-08-18] MEDS: PANTOPRAZOLE IV PUSH 40 MG VIAL. IVP SCH (07:49)
[2018-08-18] MEDS: HYDROmorphone 2 MG/ML VIAL IV PRN ×4 (08:54→22:00)
--- NOTE | 2018-08-18 10:09 | PDOC ---
PROGRESS NOTES Chief Complaint Chief Complaint Abdominal pain, unclear etiology-acute abdominal series negative, blood work negative- Persistent emesis - resolved Recent bariatric surgery- Melody-en-Y bypass 15 months ago, [facility]-lost 188 pounds History of gout on indomethacin-has not been bothering him for quite a while now Obesity/overweight BMI 31.1 Transaminitis - AST History of Present Illness History of Present Illness Still significant abdominal pain, some relief with IV Dilaudid This is our second attempt to try to advance diet but every time he advances diet, he has severe epigastric abdominal pain Now back on liquid diet Acute abdominal series at [place]-(he was a transfer on admission)-was normal Blood work nearly normal. AST elevated Still with abdominal pain over the weekend. Unable to advance diet. No BM since last week, has been on opioids Plan: Consider gastric emptying test Maintain liquid diet for now and do not advance, may need NPO for EGD consideration for PUD Await GI Rounds today Upper abd pain, nausea Lower abd pain GERD - on PPI H/o Melody-en-Y CRC screen, h/o polyps - thinks colonoscopy performed ~5 years ago Diverticular disease S/p cholecystectomy Trial of Miralax for ?constipation- no BM since Saturday. Acute abdominal series with moderate stool in colon.If no BM,consider Relistor on Dilaudid Cont IV PPI Vitals Vitals Vital Signs Date Time Temp Pulse Resp B/P (MAP) Pulse Ox O2 Delivery O2 Flow Rate FiO2 08/18/18 08:54 18 96 Room Air 08/18/18 07:00 97.8 80 119/83 (95) 97.8 Physical Exam General: Alert, Oriented X3, Cooperative, No acute distress Heart: Regular rate, Normal S1, Normal S2 Lungs: Clear Abdomen: Normal bowel sounds, Soft, No tenderness, No hepatosplenomegaly, No masses Extremities: No clubbing, No cyanosis, No edema, Normal pulses, No tenderness/ swelling Skin: No rashes, No breakdown, No significant lesion Comment Review of Relevant I have reviewed the following items ismael (where applicable) has been applied. Labs Laboratory Tests Test 08/17/18 04:40 08/17/18 04:45 Sodium Level 138 mmol/L (136-145) Potassium Level 4.0 mmol/L (3.5-5.1) Chloride Level 100 mmol/L (98-107) Carbon Dioxide Level 30 mmol/L (21-32) Anion Gap 8 (6-14) Blood Urea Nitrogen 12 mg/dL (8-26) Creatinine 1.0 mg/dL (0.7-1.3) Estimated GFR (Cockcroft-Gault) 80.8 BUN/Creatinine Ratio 12 (6-20) Glucose Level 85 mg/dL (70-99) Calcium Level 9.2 mg/dL (8.5-10.1) Total Bilirubin 1.0 mg/dL (0.2-1.0) Aspartate Amino Transf (AST/SGOT) 39 U/L (15-37) Alanine Aminotransferase (ALT/SGPT) 62 U/L (16-63) Alkaline Phosphatase 75 U/L (46-116) Total Protein 6.5 g/dL (6.4-8.2) Albumin 3.5 g/dL (3.4-5.0) Albumin/Globulin Ratio 1.2 (1.0-1.7) Erythrocyte Sedimentation Rate 5 (0-15) Medications Current Medications Morphine Sulfate (Morphine Sulfate) 2 mg PRN Q2HR PRN IV MODERATE PAIN Last administered on 08/15/18at 00:36; Start 08/14/18 at 22:15; Stop 08/15/18 at 08:21 ; Status DC Morphine Sulfate (Morphine Sulfate) 4 mg PRN Q2HR PRN IV MODERATE PAIN Last administered on 08/16/18at 10:59; Start 08/14/18 at 22:15 Sodium Chloride 1,000 ml @ 75 mls/hr [id number] IV Last administered on at 03:24; Start 08/14/18 at 22:15; Stop 08/16/18 at 09:45; Status DC Famotidine (Pepcid Vial) 20 mg BID IVP Last administered on 08/15/18at 09:50; Start 08/14/18 at 22:30; Stop 08/15/18 at 10:53; Status DC Mesalamine (Pentasa) 250 mg [id number] PO Last administered on 08/15/18at 09:55; Start 08/14/18 at 22:30; Stop 08/15/18 at 10:53; Status DC Ondansetron HCl (Zofran Odt) 4 mg PRN Q8HRS PRN PO NAUSEA/VOMITING 1ST CHOICE Last administered on 08/15/18at 05:39; Start 08/14/18 at 22:15; Stop 08/15/18 at 08:21; Status DC Metronidazole 100 ml @ 100 mls/hr Q8HRS IV Last administered on 08/17/18at 05: 35; Start 08/14/18 at 23:00; Stop 08/17/18 at 09:11; Status DC Morphine Sulfate (Morphine Sulfate) 6 mg PRN Q2HR PRN IV SEVERE PAIN Last administered on 08/15/18at 00:01; Start 08/15/18 at 00:00; Stop 08/15/18 at 08:21 ; Status DC Morphine Sulfate (Morphine Sulfate) 8 mg PRN Q2HR PRN IV SEVERE PAIN Last administered on 08/15/18at 05:39; Start 08/15/18 at 00:00; Stop 08/15/18 at 09:53 ; Status DC Ondansetron HCl (Zofran Odt) 4 mg Q6HRS PRN PO NAUSEA/VOMITING 1ST CHOICE; Start 08/15/18 at 08:30 Oxycodone/ Acetaminophen (Percocet 10/325) 1 tab PRN Q4HRS PRN PO MODERATE TO SEVERE PAIN Last administered on 08/15/18at 18:20; Start 08/15/18 at 08:30 Pantoprazole Sodium (Protonix) 40 mg DAILYAC PO ; Start 08/16/18 at 07:30; Status Cancel Pantoprazole Sodium (PROTONIX VIAL for IV PUSH) 40 mg DAILYAC IVP ; Start at 07:30; Stop 08/16/18 at 07:30; Status DC Pantoprazole Sodium (PROTONIX VIAL for IV PUSH) 40 mg 1X ONCE IVP Last administered on 08/15/18at 09:54; Start 08/15/18 at 08:30; Stop 08/15/18 at 08:31 ; Status DC Multi-Ingredient Mouthwash/Gargle (Gi Cocktail) 20 ml 1X ONCE SWSW Last administered on 08/15/18at 11:01; Start 08/15/18 at 10:00; Stop 08/15/18 at 10:01 ; Status DC Multi-Ingredient Mouthwash/Gargle (Gi Cocktail) 20 ml PRN QID PRN PO CHEST PAIN Last administered on 08/16/18at 14:05; Start 08/15/18 at 10:00 Magnesium Hydroxide (Milk Of Magnesia) 2,400 mg PRN DAILY PRN PO CONSTIPATION ( 1st Choice); Start 08/15/18 at 10:00 Polyethylene Glycol (miraLAX PACKET) 17 gm PRN DAILY PRN PO CONSTIPATION (2nd Choice); Start 08/15/18 at 10:00 Pantoprazole Sodium (Protonix) 40 mg DAILYAC PO Last administered on 08/16/18at 06:02; Start 08/16/18 at 07:30; Stop 08/16/18 at 15:13; Status DC Hydromorphone HCl (Dilaudid) 1 mg 1X ONCE IV Last administered on 08/15/18at 18 :45; Start 08/15/18 at 18:45; Stop 08/15/18 at 18:46; Status DC Hydromorphone HCl (Dilaudid) 1 mg PRN Q4HRS PRN IV MODERATE PAIN, 2ND CHOICE Last administered on 08/18/18at 08:54; Start 08/16/18 at 08:30 Pantoprazole Sodium (PROTONIX VIAL for IV PUSH) 40 mg DAILYAC IVP Last administered on 08/18/18at 07:49; Start 08/17/18 at 07:30 Polyethylene Glycol (miraLAX PACKET) 17 gm DAILY PO Last administered on at 07:49; Start 08/16/18 at 17:00 Active Scripts Active Reported Protonix (Pantoprazole Sodium) 20 Mg Tablet.dr 1 Tab PO DAILY Vitals/I & O Vital Sign - Last 24 Hours 08/17/18 08/17/18 08/17/18 08/17/18 10:54 12:46 15:00 17:37 Temp 97.5 97.7 97.5 97.7 Pulse 74 47 Resp 18 17 B/P (MAP) 119/75 (90) 117/75 (89) Pulse Ox 100 97 97 O2 Delivery Room Air Room Air Room Air Room Air 08/17/18 08/17/18 08/17/18 08/17/18 19:00 20:03 22:15 22:53 Temp 97.5 98.0 97.5 98.0 Pulse 50 47 Resp 16 18 16 B/P (MAP) 126/74 (91) 115/66 (82) Pulse Ox 99 99 93 O2 Delivery Room Air Room Air Room Air Room Air 08/17/18 08/18/18 08/18/18 08/18/18 22:57 02:49 07:00 08:54 Temp 97.8 97.8 97.8 97.8 Pulse 47 80 Resp 18 14 18 18 B/P (MAP) 129/72 (91) 119/83 (95) Pulse Ox 93 98 94 96 O2 Delivery Room Air Room Air Room Air Room Air MARK MAJOR MD Aug 18, 2018 10:09
[2018-08-18 11:00] VITALS: BP 132/81
[2018-08-18] MEDS: oxyCODONE/APAP 10/325 1 TAB TABLET PO PRN (11:35)
[2018-08-18] MEDS: LIDO:MAALOX 1:1 20 ML SINGLE DOSE. PO PRN (11:35)
--- NOTE | 2018-08-18 13:46 | NUR ---
SW following for discharge planning. Discussed with RN, and no SW needs at this time. SW will continue to follow.
[2018-08-18 15:00] VITALS: BP 132/81
--- NOTE | 2018-08-18 17:27 | PDOC ---
Objective: Vital Signs: Vital Signs Date Time Temp Pulse Resp B/P (MAP) Pulse Ox O2 Delivery O2 Flow Rate FiO2 08/18/18 15:00 97.8 53 18 132/81 (98) 100 Room Air 97.8 PE: GEN: NAD HEENT: Atraumatic, PERRLA LUNGS: CTAB HEART: RRR, no murmurs ABD:Has mild direct tenderness in upper abdomen with no guarding or rebound tenderness. EXTREMITY: No edema SKIN: No rashes, no jaundice NEURO/PSYCH: A & O 3 A/P: A 43 years old male patient with morbid obesity complicated by HUDSON s/p Melody-en -Y gastric bypass surgery 15 months ago.He had lost around 185 ibs since his bariatric surgery. He also has history of C.diff and diverticulitis. He had follow up lower endoscopic exam after diverticulitis with reported removal of colon polyps. Patient currently admitted with postprandial upper abdominal pain. Recommendations - PPI IV BID. - Bowel regimen with Miralax 1-2 BID as needed - Keep patient NPO after midnight. - EGD in am to rule out luminal process including anastomotic ulcers. Thank you for involving us in the care of this interesting patient. JOSEE NINA MD Aug 18, 2018 17:27
[2018-08-18 19:00] VITALS: BP 128/86
[2018-08-18 22:43] VITALS: BP 122/76
[2018-08-19] VITALS (14 sets, daily range): BP systolic 104–138; BP diastolic 59–81
[2018-08-19] MEDS: HYDROmorphone 2 MG/ML VIAL IV PRN ×2 (03:15→10:31)
[2018-08-19] MEDS ORDERED: IV RINGERS,LACTATED 1000ML 1,000 ML IV SCH (08:16)
--- NOTE | 2018-08-19 08:17 | PDOC ---
PROGRESS NOTES Chief Complaint Chief Complaint Abdominal pain, unclear etiology-acute abdominal series negative, blood work negative- Persistent emesis - resolved Recent bariatric surgery- Melody-en-Y bypass 15 months ago, [facility]-lost 188 pounds History of gout on indomethacin-has not been bothering him for quite a while now Obesity/overweight BMI 31.1 Transaminitis - AST History of Present Illness History of Present Illness Mr. 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 Has h/o c. diff and diverticulitis. Acute abdominal series at [place]-(he was a transfer on admission)-was normal Blood work nearly normal. AST elevated Still with abdominal pain over the weekend. Unable to advance diet. No BM since last week, has been on opioids. Still significant abdominal pain, some relief with IV Dilaudid This is our second attempt to try to advance diet but every time he advances diet, he has severe epigastric abdominal pain Now back on liquid diet Plan for EGD this morning - likely has gastritis vs PUD Plan: Consider gastric emptying test Maintain liquid diet for now and do not advance, may need NPO for EGD consideration for PUD Await GI Rounds today Tramadol for pain, try to get off IV meds Upper abd pain, nausea Lower abd pain GERD - on PPI H/o Melody-en-Y CRC screen, h/o polyps - thinks colonoscopy performed ~5 years ago Diverticular disease S/p cholecystectomy Trial of Miralax for ?constipation- no BM since Saturday. Acute abdominal series with moderate stool in colon.If no BM,consider Relistor on Dilaudid Cont IV PPI Vitals Vitals Vital Signs Date Time Temp Pulse Resp B/P (MAP) Pulse Ox O2 Delivery O2 Flow Rate FiO2 08/19/18 08:11 Room Air 08/19/18 07:10 97.6 45 18 138/75 (96) 100 97.6 Physical Exam General: Alert, Oriented X3, Cooperative, No acute distress Heart: Regular rate, Normal S1, Normal S2 Lungs: Clear Abdomen: Normal bowel sounds, Soft, No tenderness, No hepatosplenomegaly, No masses Extremities: No clubbing, No cyanosis, No edema, Normal pulses, No tenderness/ swelling Skin: No rashes, No breakdown, No significant lesion Comment Review of Relevant I have reviewed the following items ismael (where applicable) has been applied. Medications Current Medications Morphine Sulfate (Morphine Sulfate) 2 mg PRN Q2HR PRN IV MODERATE PAIN Last administered on 08/15/18at 00:36; Start 08/14/18 at 22:15; Stop 08/15/18 at 08:21 ; Status DC Morphine Sulfate (Morphine Sulfate) 4 mg PRN Q2HR PRN IV MODERATE PAIN Last administered on 08/16/18at 10:59; Start 08/14/18 at 22:15 Sodium Chloride 1,000 ml @ 75 mls/hr [id number] IV Last administered on at 03:24; Start 08/14/18 at 22:15; Stop 08/16/18 at 09:45; Status DC Famotidine (Pepcid Vial) 20 mg BID IVP Last administered on 08/15/18at 09:50; Start 08/14/18 at 22:30; Stop 08/15/18 at 10:53; Status DC Mesalamine (Pentasa) 250 mg [id number] PO Last administered on 08/15/18at 09:55; Start 08/14/18 at 22:30; Stop 08/15/18 at 10:53; Status DC Ondansetron HCl (Zofran Odt) 4 mg PRN Q8HRS PRN PO NAUSEA/VOMITING 1ST CHOICE Last administered on 08/15/18at 05:39; Start 08/14/18 at 22:15; Stop 08/15/18 at 08:21; Status DC Metronidazole 100 ml @ 100 mls/hr Q8HRS IV Last administered on 08/17/18at 05: 35; Start 08/14/18 at 23:00; Stop 08/17/18 at 09:11; Status DC Morphine Sulfate (Morphine Sulfate) 6 mg PRN Q2HR PRN IV SEVERE PAIN Last administered on 08/15/18at 00:01; Start 08/15/18 at 00:00; Stop 08/15/18 at 08:21 ; Status DC Morphine Sulfate (Morphine Sulfate) 8 mg PRN Q2HR PRN IV SEVERE PAIN Last administered on 08/15/18at 05:39; Start 08/15/18 at 00:00; Stop 08/15/18 at 09:53 ; Status DC Ondansetron HCl (Zofran Odt) 4 mg Q6HRS PRN PO NAUSEA/VOMITING 1ST CHOICE; Start 08/15/18 at 08:30 Oxycodone/ Acetaminophen (Percocet 10/325) 1 tab PRN Q4HRS PRN PO MODERATE TO SEVERE PAIN Last administered on 08/18/18at 11:35; Start 08/15/18 at 08:30 Pantoprazole Sodium (Protonix) 40 mg DAILYAC PO ; Start 08/16/18 at 07:30; Status Cancel Pantoprazole Sodium (PROTONIX VIAL for IV PUSH) 40 mg DAILYAC IVP ; Start at 07:30; Stop 08/16/18 at 07:30; Status DC Pantoprazole Sodium (PROTONIX VIAL for IV PUSH) 40 mg 1X ONCE IVP Last administered on 08/15/18at 09:54; Start 08/15/18 at 08:30; Stop 08/15/18 at 08:31 ; Status DC Multi-Ingredient Mouthwash/Gargle (Gi Cocktail) 20 ml 1X ONCE SWSW Last administered on 08/15/18at 11:01; Start 08/15/18 at 10:00; Stop 08/15/18 at 10:01 ; Status DC Multi-Ingredient Mouthwash/Gargle (Gi Cocktail) 20 ml PRN QID PRN PO CHEST PAIN Last administered on 08/18/18at 11:35; Start 08/15/18 at 10:00 Magnesium Hydroxide (Milk Of Magnesia) 2,400 mg PRN DAILY PRN PO CONSTIPATION ( 1st Choice); Start 08/15/18 at 10:00 Polyethylene Glycol (miraLAX PACKET) 17 gm PRN DAILY PRN PO CONSTIPATION (2nd Choice); Start 08/15/18 at 10:00 Pantoprazole Sodium (Protonix) 40 mg DAILYAC PO Last administered on 08/16/18at 06:02; Start 08/16/18 at 07:30; Stop 08/16/18 at 15:13; Status DC Hydromorphone HCl (Dilaudid) 1 mg 1X ONCE IV Last administered on 08/15/18at 18 :45; Start 08/15/18 at 18:45; Stop 08/15/18 at 18:46; Status DC Hydromorphone HCl (Dilaudid) 1 mg PRN Q4HRS PRN IV MODERATE PAIN, 2ND CHOICE Last administered on 08/19/18at 03:15; Start 08/16/18 at 08:30 Pantoprazole Sodium (PROTONIX VIAL for IV PUSH) 40 mg DAILYAC IVP Last administered on 08/18/18at 07:49; Start 08/17/18 at 07:30 Polyethylene Glycol (miraLAX PACKET) 17 gm DAILY PO Last administered on at 07:49; Start 08/16/18 at 17:00 Active Scripts Active Reported Protonix (Pantoprazole Sodium) 20 Mg Tablet. 1 Tab PO DAILY Vitals/I & O Vital Sign - Last 24 Hours 08/18/18 08/18/18 08/18/18 08/18/18 08:54 11:00 11:35 12:35 Temp 97.8 97.8 Pulse 53 Resp 18 18 16 14 B/P (MAP) 132/81 (98) Pulse Ox 96 100 100 100 O2 Delivery Room Air Room Air Room Air Room Air 08/18/18 08/18/18 08/18/18 08/18/18 13:10 15:00 18:02 18:32 Temp 97.8 97.8 Pulse 53 Resp 16 18 18 16 B/P (MAP) 132/81 (98) Pulse Ox 100 O2 Delivery Room Air Room Air Room Air 08/18/18 08/18/18 08/18/18 08/18/18 19:00 20:30 22:00 22:43 Temp 97.9 97.5 97.9 97.5 Pulse 57 56 Resp 17 16 B/P (MAP) 128/86 (100) 122/76 (91) Pulse Ox 99 99 99 O2 Delivery Room Air Room Air Room Air Room Air 08/19/18 08/19/18 08/19/18 08/19/18 03:00 03:15 03:45 07:10 Temp 97.7 97.6 97.7 97.6 Pulse 60 45 Resp 18 18 B/P (MAP) 116/76 (89) 138/75 (96) Pulse Ox 100 100 100 100 O2 Delivery Room Air Room Air Room Air Room Air 08/19/18 08:11 O2 Delivery Room Air Intake and Output 08/18/18 08/18/18 08/19/18 14:59 22:59 06:59 Intake Total 0 ml 0 ml Balance 0 ml 0 ml MARK MAJOR MD Aug 19, 2018 08:17
[2018-08-19] MEDS ORDERED: LIDOCAINE 1% PF 2 ML VIAL. ID PRN (08:30)
[2018-08-19] MEDS ORDERED: MIDAZOLAM HCL/PF 2 MG/2 ML VIAL. IV PRN (08:30)
[2018-08-19] MEDS ORDERED: fentaNYL PF VIAL 100 MCG/2 ML VIAL IV PRN ×2 (08:30)
[2018-08-19] MEDS: POLYETHYLENE GLYCOL 3350 17 GM PACKET. PO SCH (08:46)
[2018-08-19] MEDS ORDERED: PROPOFOL 20 ML IV ONE ×2 (08:49→08:50)
[2018-08-19] MEDS: PANTOPRAZOLE IV PUSH 40 MG VIAL. IVP SCH (10:30)
[2018-08-19] MEDS: oxyCODONE/APAP 10/325 1 TAB TABLET PO PRN (12:27)
--- NOTE | 2018-08-19 14:49 | NUR ---
SW following. Discussed with RN, RN advised no SW needs at this time. SW will continue to follow.
[2018-08-19] MEDS: traMADol 50 MG TABLET PO PRN (16:21)
[2018-08-19] MEDS: HYDROcodone/APAP 5/325MG 1 TAB TABLET PO PRN ×2 (17:57→23:53)
[2018-08-20 03:00] VITALS: BP 127/64
[2018-08-20] MEDS: HYDROmorphone 2 MG/ML VIAL IV PRN (06:16)
[2018-08-20 07:00] VITALS: BP 127/64
[2018-08-20] MEDS: PANTOPRAZOLE IV PUSH 40 MG VIAL. IVP SCH ×2 (07:30→17:45)
--- NOTE | 2018-08-20 07:47 | PDOC ---
PROGRESS NOTES Chief Complaint Chief Complaint Abdominal pain, unclear etiology-acute abdominal series negative, blood work negative- Persistent emesis - resolved Recent bariatric surgery- Melody-en-Y bypass 15 months ago, [facility]-lost 188 pounds History of gout on indomethacin-has not been bothering him for quite a while now Obesity/overweight BMI 31.1 Transaminitis - AST History of Present Illness History of Present Illness Mr. 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 Has h/o c. diff and diverticulitis. Acute abdominal series at [facility]-(he was a transfer on admission)-was normal Blood work nearly normal. AST elevated Still with abdominal pain over the weekend. Unable to advance diet. No BM since last week, has been on opioids. 08/19: EGD with no significant PUD per GI, no anastomotic lesions, still with pain on advancement of diet. I had a long discussion about planning to premedicate with tramadol prior to eating and to try to get a small bowel follow through series. Still significant abdominal pain, some relief with oral meds prior to eating, taking less IV Dilaudid This is our third attempt to try to advance diet but every time he advances diet , he has severe epigastric abdominal pain. Will get back on liquid diet and try GI soft tonight Plan: Consider gastric emptying test Maintain liquid diet for now and do advance if ok with GI GI wishes to consult general surgery Tramadol for pain, try to get off IV meds Upper abd pain, nausea Lower abd pain GERD - on PPI H/o Melody-en-Y CRC screen, h/o polyps - thinks colonoscopy performed ~5 years ago Diverticular disease S/p cholecystectomy Trial of Miralax for ?constipation- no BM since Saturday. Acute abdominal series with moderate stool in colon.If no BM,consider Relistor on Dilaudid Cont IV PPI Vitals Vitals Vital Signs Date Time Temp Pulse Resp B/P (MAP) Pulse Ox O2 Delivery O2 Flow Rate FiO2 08/20/18 07:00 97.0 46 20 127/64 (85) 95 Room Air 2.0 97.0 Physical Exam General: Alert, Oriented X3, Cooperative, No acute distress Heart: Regular rate, Normal S1, Normal S2 Lungs: Clear Abdomen: Normal bowel sounds, Soft, No tenderness, No hepatosplenomegaly, No masses Extremities: No clubbing, No cyanosis, No edema, Normal pulses, No tenderness/ swelling Skin: No rashes, No breakdown, No significant lesion Comment Review of Relevant I have reviewed the following items ismael (where applicable) has been applied. Medications Current Medications Morphine Sulfate (Morphine Sulfate) 2 mg PRN Q2HR PRN IV MODERATE PAIN Last administered on 08/15/18at 00:36; Start 08/14/18 at 22:15; Stop 08/15/18 at 08:21 ; Status DC Morphine Sulfate (Morphine Sulfate) 4 mg PRN Q2HR PRN IV MODERATE PAIN Last administered on 08/16/18at 10:59; Start 08/14/18 at 22:15 Sodium Chloride 1,000 ml @ 75 mls/hr [id number] IV Last administered on at 03:24; Start 08/14/18 at 22:15; Stop 08/16/18 at 09:45; Status DC Famotidine (Pepcid Vial) 20 mg BID IVP Last administered on 08/15/18at 09:50; Start 08/14/18 at 22:30; Stop 08/15/18 at 10:53; Status DC Mesalamine (Pentasa) 250 mg [id number] PO Last administered on 08/15/18at 09:55; Start 08/14/18 at 22:30; Stop 08/15/18 at 10:53; Status DC Ondansetron HCl (Zofran Odt) 4 mg PRN Q8HRS PRN PO NAUSEA/VOMITING 1ST CHOICE Last administered on 08/15/18at 05:39; Start 08/14/18 at 22:15; Stop 08/15/18 at 08:21; Status DC Metronidazole 100 ml @ 100 mls/hr Q8HRS IV Last administered on 08/17/18at 05: 35; Start 08/14/18 at 23:00; Stop 08/17/18 at 09:11; Status DC Morphine Sulfate (Morphine Sulfate) 6 mg PRN Q2HR PRN IV SEVERE PAIN Last administered on 08/15/18at 00:01; Start 08/15/18 at 00:00; Stop 08/15/18 at 08:21 ; Status DC Morphine Sulfate (Morphine Sulfate) 8 mg PRN Q2HR PRN IV SEVERE PAIN Last administered on 08/15/18at 05:39; Start 08/15/18 at 00:00; Stop 08/15/18 at 09:53 ; Status DC Ondansetron HCl (Zofran Odt) 4 mg Q6HRS PRN PO NAUSEA/VOMITING 1ST CHOICE; Start 08/15/18 at 08:30 Oxycodone/ Acetaminophen (Percocet 10/325) 1 tab PRN Q4HRS PRN PO MODERATE TO SEVERE PAIN Last administered on 08/19/18at 12:27; Start 08/15/18 at 08:30; Stop 08/19/18 at 13:41; Status DC Pantoprazole Sodium (Protonix) 40 mg DAILYAC PO ; Start 08/16/18 at 07:30; Status Cancel Pantoprazole Sodium (PROTONIX VIAL for IV PUSH) 40 mg DAILYAC IVP ; Start at 07:30; Stop 08/16/18 at 07:30; Status DC Pantoprazole Sodium (PROTONIX VIAL for IV PUSH) 40 mg 1X ONCE IVP Last administered on 08/15/18at 09:54; Start 08/15/18 at 08:30; Stop 08/15/18 at 08:31 ; Status DC Multi-Ingredient Mouthwash/Gargle (Gi Cocktail) 20 ml 1X ONCE SWSW Last administered on 08/15/18at 11:01; Start 08/15/18 at 10:00; Stop 08/15/18 at 10:01 ; Status DC Multi-Ingredient Mouthwash/Gargle (Gi Cocktail) 20 ml PRN QID PRN PO CHEST PAIN Last administered on 08/18/18at 11:35; Start 08/15/18 at 10:00 Magnesium Hydroxide (Milk Of Magnesia) 2,400 mg PRN DAILY PRN PO CONSTIPATION ( 1st Choice); Start 08/15/18 at 10:00 Polyethylene Glycol (miraLAX PACKET) 17 gm PRN DAILY PRN PO CONSTIPATION (2nd Choice); Start 08/15/18 at 10:00 Pantoprazole Sodium (Protonix) 40 mg DAILYAC PO Last administered on 08/16/18at 06:02; Start 08/16/18 at 07:30; Stop 08/16/18 at 15:13; Status DC Hydromorphone HCl (Dilaudid) 1 mg 1X ONCE IV Last administered on 08/15/18at 18 :45; Start 08/15/18 at 18:45; Stop 08/15/18 at 18:46; Status DC Hydromorphone HCl (Dilaudid) 1 mg PRN Q4HRS PRN IV MODERATE PAIN, 2ND CHOICE Last administered on 08/20/18at 06:16; Start 08/16/18 at 08:30 Pantoprazole Sodium (PROTONIX VIAL for IV PUSH) 40 mg DAILYAC IVP Last administered on 08/19/18at 10:30; Start 08/17/18 at 07:30 Polyethylene Glycol (miraLAX PACKET) 17 gm DAILY PO Last administered on at 07:49; Start 08/16/18 at 17:00 Midazolam HCl (Versed) 2 mg PRN 1X PRN IV PRIOR TO PROCEDURE; Start 08/19/18 at 08:30; Stop 08/20/18 at 08:29 Fentanyl Citrate (Fentanyl 2ml Vial) 25 mcg PRN Q5MIN PRN IV X 2 DOSES FOR PAIN ; Start 08/19/18 at 08:30; Stop 08/20/18 at 08:29 Fentanyl Citrate (Fentanyl 2ml Vial) 50 mcg PRN Q5MIN PRN IV X 2 DOSES FOR PAIN ; Start 08/19/18 at 08:30; Stop 08/20/18 at 08:29 Ringer's Solution 1,000 ml @ 125 mls/hr Q8H IV Last administered on 08/19/18at 08:19; Start 08/19/18 at 08:16; Stop 08/19/18 at 11:08; Status DC Lidocaine HCl (Xylocaine-Mpf 1% 2ml Vial) 2 ml 1X PRN PRN ID IV START; Start at 08:30; Stop 08/20/18 at 08:29 Propofol 20 ml @ As Directed STK-MED ONCE IV ; Start 08/19/18 at 08:49; Stop at 08:50; Status DC Propofol 20 ml @ As Directed STK-MED ONCE IV ; Start 08/19/18 at 08:50; Stop at 08:51; Status DC Tramadol HCl (Ultram) 50 mg PRN Q6HRS PRN PO MILD PAIN Last administered on at 16:21; Start 08/19/18 at 13:45 Acetaminophen/ Hydrocodone Bitart (Lortab 5/325) 1 tab PRN Q6HRS PRN PO MODERATE - SEVERE PAIN Last administered on 08/19/18at 23:53; Start 08/19/18 at 13:45 Active Scripts Active Reported Protonix (Pantoprazole Sodium) 20 Mg Tablet. 1 Tab PO DAILY Vitals/I & O Vital Sign - Last 24 Hours 08/19/18 08/19/18 08/19/18 08/19/18 08:11 08:15 09:26 09:41 Temp 97.1 97.0 97.1 97.0 Pulse 50 60 61 Resp 20 18 20 B/P (MAP) 139/76 141/79 Pulse Ox 100 99 99 O2 Delivery Room Air Nasal Cannula Room Air O2 Flow Rate 2 08/19/18 08/19/18 08/19/18 08/19/18 09:46 09:55 10:31 10:35 Temp 98.3 98.3 Pulse 50 53 Resp 20 18 B/P (MAP) 130/68 122/81 (95) Pulse Ox 98 100 O2 Delivery Room Air Room Air Room Air Room Air 08/19/18 08/19/18 08/19/18 08/19/18 10:45 11:00 11:04 11:15 Pulse 46 44 52 Resp 20 B/P (MAP) 121/76 (91) 129/74 (92) 126/75 (92) Pulse Ox 99 100 98 100 O2 Delivery Room Air Room Air Room Air Room Air O2 Flow Rate 2.0 08/19/18 08/19/18 08/19/18 08/19/18 11:30 12:00 12:27 12:30 Pulse 54 55 55 B/P (MAP) 121/59 (79) 123/76 (92) 120/75 (90) Pulse Ox 100 100 100 O2 Delivery Room Air Room Air Room Air Room Air 08/19/18 08/19/18 08/19/18 08/19/18 13:00 13:27 14:00 15:00 Pulse 50 47 51 Resp 20 20 B/P (MAP) 104/65 (78) 119/71 (87) 122/75 (91) Pulse Ox 98 100 100 100 O2 Delivery Room Air Room Air Room Air Room Air O2 Flow Rate 2.0 08/19/18 08/19/18 08/19/18 08/19/18 16:21 17:18 17:57 19:00 Temp 97.9 97.9 Pulse 49 Resp 20 B/P (MAP) 116/74 (88) Pulse Ox 100 98 O2 Delivery Room Air Room Air Room Air Room Air O2 Flow Rate 2.0 08/19/18 08/19/18 08/20/18 08/20/18 20:00 23:00 03:00 07:00 Temp 98.0 97.0 97.0 98.0 97.0 97.0 Pulse 47 62 46 Resp 20 20 20 B/P (MAP) 125/80 (95) 127/64 (85) 127/64 (85) Pulse Ox 98 96 95 O2 Delivery Room Air Room Air Room Air Room Air O2 Flow Rate 2.0 Intake and Output 08/19/18 08/19/18 08/20/18 14:59 22:59 06:59 Intake Total 740 ml 370 ml Output Total 0 ml Balance 740 ml 370 ml 0 ml MARK MAJOR MD Aug 20, 2018 07:47
[2018-08-20] MEDS: POLYETHYLENE GLYCOL 3350 17 GM PACKET. PO SCH (09:00)
[2018-08-20] MEDS ORDERED: BARIUM SULFATE 60% 355 ML SUSP PO ONE (09:30)
--- NOTE | 2018-08-20 11:15 | PDOC ---
Objective: Objective: D/w Dr. Holcomb this morning. D/w Dr. Hanson twice yesterday, called RN yesterday to order UGI series for today. 1 stool charted 08/19. Looks like was up to a full liquid diet (though NPO today for UGI). Vital Signs: Vital Signs Date Time Temp Pulse Resp B/P (MAP) Pulse Ox O2 Delivery O2 Flow Rate FiO2 08/20/18 07:00 97.0 46 20 127/64 (85) 95 Room Air 2.0 97.0 Imaging: Acute Abd Series 08/17/18 IMPRESSION: 1. Limited study. 2. No acute infiltrates. 3. No bowel obstruction noted. 4. Moderate stool in the colon. EGD 08/19/18 regular Z-line 41cm from incisors normal esophagus melody-en-y gastrojejunostomy w/ gastrojejunal anastomosis characterized by non- bleeding denuded mucosa and visible sutures (biopsied) normal examined jejunum PE: out of room A/P: Post-prandial abd pain s/p Melody-en-Y -- Out of room this morning and again when returned w/ Dr. Hanson - will follow-up when returns from imaging. Pain seems out of proportion considering endoscopic exam findings as above. Official report still pending, reviewed UGI w/ Dr. Hanson - doesn't look like blind loop syndrome, but will ask Dr. Hall to see - they discussed via phone. Returned to see pt this afternoon - discussed EGD and UGI results. Ongoing pain - "never below a 4." Lortab and Dilaudid help some, Tramadol and Morphine do not. Also thought GI cocktail was helpful but doesn't last very long. Pain is constant but worse after eating. Is careful to only eat very small portions - tolerated full liquids (soup) for lunch, plans to try GI soft for dinner. Stooled yesterday - understand rationale of using Miralax w/ ongoing use of narcotics. SANDOR ROBERTSON Aug 20, 2018 11:15
--- NOTE | 2018-08-20 13:13 | NUR ---
SW following for discharge planning. Discussed with RN, pt having an upper GI procedure today. Possibility of discharge today. SW will continue to follow.
--- NOTE | 2018-08-20 14:05 | RAD ---
Upper GI with small bowel follow-through, 08/20/2018: History: Abdominal pain after eating, previous gastric bypass surgery. The study was performed utilizing thin liquid barium. 2.8 minutes of fluoroscopy time was utilized. 9 static and dynamic fluoroscopic sequences were recorded. The swallowing mechanism is intact. The esophageal peristalsis is normal. There has been previous gastric surgery with a jejunostomy. The ingested contrast readily flows into the gastric pouch and through the gastrojejunostomy site into the small bowel. There is no evidence of obstruction. No ulceration is identified. The small bowel loops are of normal caliber with no evidence of fold thickening. The barium reached the colon at 2 hours and 45 minutes. The terminal ileum is unremarkable. IMPRESSION: 1. The gastric pouch is unremarkable without evidence of obstruction or marginal ulceration. 2. No significant small bowel abnormality is detected.
[2018-08-20] MEDS: traMADol 50 MG TABLET PO PRN (14:06)
[2018-08-20 14:43] VITALS: BP 141/76
[2018-08-20] MEDS ORDERED: DICYCLOMINE HCL 10 MG CAPSULE PO PRN (14:45)
--- NOTE | 2018-08-20 15:28 | PDOC2 ---
CONSULT Date of Consult Date of Consult DATE: 08/20/18 TIME: 15:24 Reason for Consult Reason for Consult: Epigastric pain, anastomotic ulcer Referring Physician Referring Physician: Valentin Identification/Chief Complaint Chief Complaint Epigastric abd pain Source Source: Chart review, Patient History of Present Illness Reason for Visit: 43 yo M s/p gastric bypass 15 months ago with 180 lbs weight loss. He was doing well until within the last few days developed pain in epigastric area. Always present, but worsens within a few minutes of eating. No n/v, F/c Past Medical History Cardiovascular: No pertinent hx Pulmonary: No pertinent hx GI: Diverticulosis Psych: Depression Musculoskeletal: Other Past Surgical History Past Surgical History: Other (recent bariatric surgery at [facility] last 15 months) Family History Family History: No Significant Social History No ALCOHOL: occassional (1-2 drinks once or twice weekly) Drugs: None Current Medications Current Medications Current Medications Morphine Sulfate (Morphine Sulfate) 2 mg PRN Q2HR PRN IV MODERATE PAIN Last administered on 08/15/18at 00:36; Start 08/14/18 at 22:15; Stop 08/15/18 at 08:21 ; Status DC Morphine Sulfate (Morphine Sulfate) 4 mg PRN Q2HR PRN IV MODERATE PAIN Last administered on 08/16/18at 10:59; Start 08/14/18 at 22:15 Sodium Chloride 1,000 ml @ 75 mls/hr [id number] IV Last administered on at 03:24; Start 08/14/18 at 22:15; Stop 08/16/18 at 09:45; Status DC Famotidine (Pepcid Vial) 20 mg BID IVP Last administered on 08/15/18at 09:50; Start 08/14/18 at 22:30; Stop 08/15/18 at 10:53; Status DC Mesalamine (Pentasa) 250 mg [id number] PO Last administered on 08/15/18at 09:55; Start 08/14/18 at 22:30; Stop 08/15/18 at 10:53; Status DC Ondansetron HCl (Zofran Odt) 4 mg PRN Q8HRS PRN PO NAUSEA/VOMITING 1ST CHOICE Last administered on 08/15/18at 05:39; Start 08/14/18 at 22:15; Stop 08/15/18 at 08:21; Status DC Metronidazole 100 ml @ 100 mls/hr Q8HRS IV Last administered on 08/17/18at 05: 35; Start 08/14/18 at 23:00; Stop 08/17/18 at 09:11; Status DC Morphine Sulfate (Morphine Sulfate) 6 mg PRN Q2HR PRN IV SEVERE PAIN Last administered on 08/15/18at 00:01; Start 08/15/18 at 00:00; Stop 08/15/18 at 08:21 ; Status DC Morphine Sulfate (Morphine Sulfate) 8 mg PRN Q2HR PRN IV SEVERE PAIN Last administered on 08/15/18 05:39; Start 08/15/18 at 00:00; Stop 08/15/18 at 09:53 ; Status DC Ondansetron HCl (Zofran Odt) 4 mg Q6HRS PRN PO NAUSEA/VOMITING 1ST CHOICE; Start 08/15/18 at 08:30 Oxycodone/ Acetaminophen (Percocet 10/325) 1 tab PRN Q4HRS PRN PO MODERATE TO SEVERE PAIN Last administered on 08/19/18at 12:27; Start 08/15/18 at 08:30; Stop 08/19/18 at 13:41; Status DC Pantoprazole Sodium (Protonix) 40 mg DAILYAC PO ; Start 08/16/18 at 07:30; Status Cancel Pantoprazole Sodium (PROTONIX VIAL for IV PUSH) 40 mg DAILYAC IVP ; Start at 07:30; Stop 08/16/18 at 07:30; Status DC Pantoprazole Sodium (PROTONIX VIAL for IV PUSH) 40 mg 1X ONCE IVP Last administered on 08/15/18at 09:54; Start 08/15/18 at 08:30; Stop 08/15/18 at 08:31 ; Status DC Multi-Ingredient Mouthwash/Gargle (Gi Cocktail) 20 ml 1X ONCE SWSW Last administered on 08/15/18at 11:01; Start 08/15/18 at 10:00; Stop 08/15/18 at 10:01 ; Status DC Multi-Ingredient Mouthwash/Gargle (Gi Cocktail) 20 ml PRN QID PRN PO CHEST PAIN Last administered on 08/18/18at 11:35; Start 08/15/18 at 10:00 Magnesium Hydroxide (Milk Of Magnesia) 2,400 mg PRN DAILY PRN PO CONSTIPATION ( 1st Choice); Start 08/15/18 at 10:00 Polyethylene Glycol (miraLAX PACKET) 17 gm PRN DAILY PRN PO CONSTIPATION (2nd Choice); Start 08/15/18 at 10:00 Pantoprazole Sodium (Protonix) 40 mg DAILYAC PO Last administered on 08/16/18at 06:02; Start 08/16/18 at 07:30; Stop 08/16/18 at 15:13; Status DC Hydromorphone HCl (Dilaudid) 1 mg 1X ONCE IV Last administered on 08/15/18at 18 :45; Start 08/15/18 at 18:45; Stop 08/15/18 at 18:46; Status DC Hydromorphone HCl (Dilaudid) 1 mg PRN Q4HRS PRN IV MODERATE PAIN, 2ND CHOICE Last administered on 08/20/18at 06:16; Start 08/16/18 at 08:30 Pantoprazole Sodium (PROTONIX VIAL for IV PUSH) 40 mg DAILYAC IVP Last administered on 08/19/18at 10:30; Start 08/17/18 at 07:30; Stop 08/20/18 at 11:16 ; Status DC Polyethylene Glycol (miraLAX PACKET) 17 gm DAILY PO Last administered on at 07:49; Start 08/16/18 at 17:00 Midazolam HCl (Versed) 2 mg PRN 1X PRN IV PRIOR TO PROCEDURE; Start 08/19/18 at 08:30; Stop 08/20/18 at 08:29; Status DC Fentanyl Citrate (Fentanyl 2ml Vial) 25 mcg PRN Q5MIN PRN IV X 2 DOSES FOR PAIN ; Start 08/19/18 at 08:30; Stop 08/20/18 at 08:29; Status DC Fentanyl Citrate (Fentanyl 2ml Vial) 50 mcg PRN Q5MIN PRN IV X 2 DOSES FOR PAIN ; Start 08/19/18 at 08:30; Stop 08/20/18 at 08:29; Status DC Ringer's Solution 1,000 ml @ 125 mls/hr Q8H IV Last administered on 08/19/18at 08:19; Start 08/19/18 at 08:16; Stop 08/19/18 at 11:08; Status DC Lidocaine HCl (Xylocaine-Mpf 1% 2ml Vial) 2 ml 1X PRN PRN ID IV START; Start at 08:30; Stop 08/20/18 at 08:29; Status DC Propofol 20 ml @ As Directed STK-MED ONCE IV ; Start 08/19/18 at 08:49; Stop at 08:50; Status DC Propofol 20 ml @ As Directed STK-MED ONCE IV ; Start 08/19/18 at 08:50; Stop at 08:51; Status DC Tramadol HCl (Ultram) 50 mg PRN Q6HRS PRN PO MILD PAIN Last administered on at 14:06; Start 08/19/18 at 13:45 Acetaminophen/ Hydrocodone Bitart (Lortab 5/325) 1 tab PRN Q6HRS PRN PO MODERATE - SEVERE PAIN Last administered on 08/19/18at 23:53; Start 08/19/18 at 13:45 Barium Sulfate (Liquid E-Z Paque) 710 ml 1X ONCE PO Last administered on at 09:30; Start 08/20/18 at 09:30; Stop 08/20/18 at 09:31; Status DC Pantoprazole Sodium (Protonix) 40 mg DAILYAC PO ; Start 08/21/18 at 07:30; Stop 08/21/18 at 07:30; Status DC Lansoprazole (Prevacid) 30 mg DAILYAC FT ; Start 08/21/18 at 07:30; Stop at 07:30; Status DC Dicyclomine HCl (Bentyl) 10 mg PRN QID PRN PO abd pain; Start 08/20/18 at 14:45 Sucralfate (Carafate) 1 gm BIDAC PEG ; Start 08/20/18 at 16:30 Lansoprazole (Prevacid) 30 mg DAILYAC PO ; Start 08/21/18 at 07:30 Active Scripts Active Reported Protonix (Pantoprazole Sodium) 20 Mg Tablet. 1 Tab PO DAILY Allergies Allergies: Coded Allergies: naproxen (Verified Allergy, Intermediate, 08/19/18) ROS Gastrointestinal: Yes Abdominal Pain Physical Exam General: Alert, Oriented X3, Cooperative, No acute distress HEENT: Atraumatic Lungs: Normal air movement Abdomen: Soft, Other (TTP epigastric, well healed incisions) Extremities: No clubbing, No cyanosis Skin: No rashes, No breakdown Neuro: Normal speech, Sensation intact Psych/Mental Status: Mental status NL, Mood NL Vitals VITALS Vital Signs Date Time Temp Pulse Resp B/P (MAP) Pulse Ox O2 Delivery O2 Flow Rate FiO2 08/20/18 14:43 98.2 48 16 141/76 (97) 100 Room Air 98.2 08/20/18 07:[address] [facility] wnl, UGI wnl, EGD with denuded mucosa at anastomosis Assessment/Plan Assessment/Plan Anastomotic ulcer agree with PPI and bowel rest encouraged EtOH cessation. Recommend pt best be served by transfer to [facility] under his bariatric surgeon, Dr. Mcdonald. Thanks for consult! BINU DOWLING MD Aug 20, 2018 15:28
[2018-08-20] MEDS ORDERED: SUCRALFATE 1 GM/10 ML ORAL.SUSP. PEG SCH (16:30)
[2018-08-20] MEDS ORDERED: SUCRALFATE 1 GM TABLET. PO SCH (16:30)
--- NOTE | 2018-08-20 17:07 | PATHOLOGY ---
[facility] Accession Number: [id number] . 01 Material submitted: . PART A: GASTRIC POLYP PART B: GASTRIC BIOPSY . 01 Clinical history: . Abdominal pain . 02 Diagnosis: A. Gastric biopsy, gastric polyp: - Consistent with fundic gland polyp. . B. Gastric biopsy: - Superficial congestion and mild chronic inflammation. LBQ/08/20/2018 . 02 Comment: Sections of the gastric polyp biopsy reveal segments of gastric fundic mucosa showing a few mildly dilated fundic glands with superficial congestion and focal slight chronic inflammation. These findings are consistent with fundic gland polyp. There are no adenomatous changes or evidence of malignancy. . Sections of the gastric biopsy reveal a segment of gastric body mucosa showing superficial congestion and mild chronic inflammation. A properly controlled immunoperoxidase stain for Helicobacter is negative for Helicobacter organisms. (JPM/db; 08/20/2018) . Special stain performed: Immunoperoxidase stain for Helicobacter on B1 . 02 Electronically signed: . Bo Flores MD, Pathologist NPI- [id number] . 01 Gross description: . A. Received in formalin labeled "Anaid Domenic, gastric polyp," are 2 segments of conner soft tissue measuring 0.7 x 0.3 x 0.2 cm in aggregate dimensions and ranging from 0.3 to 0.4 cm in maximum dimension. The specimen is submitted entirely in cassette A1. . B. Received in formalin labeled "Domenic Worrell, gastric BX for H. pylori," is a single segment of conner soft tissue measuring 0.6 cm in maximum dimension. The specimen is entirely submitted in cassette B1. (TSD; 08/19/2018) TOB/TOB . 02 Pathologist provided ICD-10: K31.7, K29.50 . 02 CPT . 050219, 362283, [id number] Specimen Comment: A courtesy copy of this report has been sent to Specimen Comment: [phone], , . Specimen Comment: Report sent to ,DR BOWMAN / DR PENA Specimen Comment: A duplicate report has been generated due to demographic updates. Performed at: 01 [facility] [address], [place] [id number] MD Basil Marin MD Phone: [phone] Performed at: 02 [facility] [place] [address] [place], [place] [id number] MD Bo Flores MD Phone: [phone]
[2018-08-20] MEDS: SUCRALFATE 1 GM/10 ML ORAL.SUSP. PO SCH ×2 (17:45→21:59)
[2018-08-20] MEDS: POTASSIUM CL 20MEQ-0.45% NACL 1,000 ML IV SCH (17:52)
[2018-08-20] MEDS: HYDROcodone/APAP 5/325MG 1 TAB TABLET PO PRN (18:37)
[2018-08-20 19:00] VITALS: BP 145/72
[2018-08-20 22:59] VITALS: BP 130/81
[2018-08-21] MEDS: HYDROcodone/APAP 5/325MG 1 TAB TABLET PO PRN (02:50)
[2018-08-21] MEDS: POTASSIUM CL 20MEQ-0.45% NACL 1,000 ML IV SCH ×3 (02:50→22:29)
[2018-08-21 03:00] VITALS: BP 127/77
[2018-08-21 07:00] VITALS: BP 118/74
[2018-08-21] MEDS ORDERED: LANSOPRAZOLE 30 MG TAB.RAP.DR FT SCH (07:30)
[2018-08-21] MEDS ORDERED: PANTOPRAZOLE 40 MG TABLET.DR. PO SCH (07:30)
[2018-08-21] MEDS ORDERED: LANSOPRAZOLE 30 MG TAB.RAP.DR PO SCH (07:30)
[2018-08-21] MEDS: SUCRALFATE 1 GM/10 ML ORAL.SUSP. PO SCH ×4 (08:18→20:47)
[2018-08-21] MEDS: PANTOPRAZOLE IV PUSH 40 MG VIAL. IVP SCH ×2 (08:19→16:45)
[2018-08-21] MEDS: POLYETHYLENE GLYCOL 3350 17 GM PACKET. PO SCH (08:25)
[2018-08-21] MEDS: HYDROmorphone 2 MG/ML VIAL IV PRN ×3 (09:06→22:29)
--- NOTE | 2018-08-21 10:17 | PDOC ---
GERRY SAUCEDO PLATE KEEPER 08/21/18 1017: SURGICAL PROGRESS NOTE Subjective feels better less pain, Carafate is helping no n/v Vital Signs Vital Signs Date Time Temp Pulse Resp B/P (MAP) Pulse Ox O2 Delivery O2 Flow Rate FiO2 08/21/18 09:06 98 Room Air 2.0 08/21/18 07:00 97.9 46 18 118/74 (89) 97.9 I&O Intake and Output 08/21/18 07:00 Intake Total 900 ml Balance 900 ml Intake Oral 900 ml General: Alert, Oriented X3, Cooperative, No acute distress Abdomen: Soft, No tenderness Assessment/Plan will try clears continue carafate BINU DOWLING MD 08/21/18 1627: SURGICAL PROGRESS NOTE Assessment/Plan Pt seen and examined. Agree with Nathalie Saucedo's note Pt feels better today, rajesh clears abd soft, min TTP epigastric d/w Dr. Mcdonald yesterday, did not necessarily need to transfer, unless not improved, encouraged f/u as outpt GERRY SAUCEDO APRN Aug 21, 2018 10:17 BINU DOWLING MD Aug 21, 2018 16:27
[2018-08-21 11:00] VITALS: BP 113/68
--- NOTE | 2018-08-21 11:20 | PDOC ---
Subjective: Subjective: Abd pain is better w/ Dilaudid and Carafate. Objective: Vital Signs: Vital Signs Date Time Temp Pulse Resp B/P (MAP) Pulse Ox O2 Delivery O2 Flow Rate FiO2 08/21/18 09:36 98 Room Air 2.0 08/21/18 07:00 97.9 46 18 118/74 (89) 97.9 PE: GEN: NAD, doing crossword puzzle LUNGS: CTAB HEART: RRR ABD: doesn't seem too tender today NEURO/PSYCH: A & O 3 A/P: Post-prandial abd pain s/p Melody-en-Y w/ denuded mucosa at anastomosis -- Better w/ Carafate? Still needs Dilaudid. Dr. Hall has d/w Dr. Mcdonald - continue per surgery - looks like plans to try clears. SANDOR ROBERTSON Aug 21, 2018 11:20
--- NOTE | 2018-08-21 12:35 | PDOC ---
PROGRESS NOTES Chief Complaint Chief Complaint Abdominal pain, unclear etiology-acute abdominal series negative, blood work negative- Persistent emesis - resolved Recent bariatric surgery- Melody-en-Y bypass 15 months ago, [facility]-lost 188 pounds History of gout on indomethacin-has not been bothering him for quite a while now Obesity/overweight BMI 31.1 Transaminitis - AST History of Present Illness History of Present Illness Mr. 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 Has h/o c. diff and diverticulitis. Acute abdominal series at [facility]-(he was a transfer on admission)-was normal Blood work nearly normal. AST elevated Still with abdominal pain over the weekend. Unable to advance diet. No BM since last week, has been on opioids. 08/19: EGD with no significant PUD per GI, no anastomotic lesions, still with pain on advancement of diet. I had a long discussion about planning to premedicate with tramadol prior to eating and to try to get a small bowel follow through series. 08/20: Still significant abdominal pain, some relief with oral meds prior to eating, taking less IV Dilaudid This is our third attempt to try to advance diet but every time he advances diet , he has severe epigastric abdominal pain. Consulted general surgery, d/w bariatric surgery. Started carafate with improvement. He still does have pain and is still having clear liquid diet. Plan: Maintain liquid diet for now and do advance if ok with GI Appreciate consult general surgery Tramadol for pain, try to get off IV meds Upper abd pain, nausea Lower abd pain GERD - on PPI H/o Melody-en-Y CRC screen, h/o polyps - thinks colonoscopy performed ~5 years ago Diverticular disease S/p cholecystectomy Trial of Miralax for ?constipation- no BM since Saturday. Acute abdominal series with moderate stool in colon.I Cont IV PPI Vitals Vitals Vital Signs Date Time Temp Pulse Resp B/P (MAP) Pulse Ox O2 Delivery O2 Flow Rate FiO2 08/21/18 11:00 98.4 47 17 113/68 (83) 100 Room Air 98.4 08/21/18 09:36 2.0 Physical Exam General: Alert, Oriented X3, Cooperative, No acute distress Heart: Regular rate, Normal S1, Normal S2 Lungs: Clear Abdomen: Soft, No tenderness Extremities: No clubbing, No cyanosis Skin: No rashes, No breakdown Comment Review of Relevant I have reviewed the following items ismael (where applicable) has been applied. Medications Current Medications Morphine Sulfate (Morphine Sulfate) 2 mg PRN Q2HR PRN IV MODERATE PAIN Last administered on 08/15/18at 00:36; Start 08/14/18 at 22:15; Stop 08/15/18 at 08:21 ; Status DC Morphine Sulfate (Morphine Sulfate) 4 mg PRN Q2HR PRN IV MODERATE PAIN Last administered on 08/16/18at 10:59; Start 08/14/18 at 22:15 Sodium Chloride 1,000 ml @ 75 mls/hr [id number] IV Last administered on at 03:24; Start 08/14/18 at 22:15; Stop 08/16/18 at 09:45; Status DC Famotidine (Pepcid Vial) 20 mg BID IVP Last administered on 08/15/18at 09:50; Start 08/14/18 at 22:30; Stop 08/15/18 at 10:53; Status DC Mesalamine (Pentasa) 250 mg [id number] PO Last administered on 08/15/18at 09:55; Start 08/14/18 at 22:30; Stop 08/15/18 at 10:53; Status DC Ondansetron HCl (Zofran Odt) 4 mg PRN Q8HRS PRN PO NAUSEA/VOMITING 1ST CHOICE Last administered on 08/15/18at 05:39; Start 08/14/18 at 22:15; Stop 08/15/18 at 08:21; Status DC Metronidazole 100 ml @ 100 mls/hr Q8HRS IV Last administered on 08/17/18at 05: 35; Start 08/14/18 at 23:00; Stop 08/17/18 at 09:11; Status DC Morphine Sulfate (Morphine Sulfate) 6 mg PRN Q2HR PRN IV SEVERE PAIN Last administered on 08/15/18at 00:01; Start 08/15/18 at 00:00; Stop 08/15/18 at 08:21 ; Status DC Morphine Sulfate (Morphine Sulfate) 8 mg PRN Q2HR PRN IV SEVERE PAIN Last administered on 08/15/18at 05:39; Start 08/15/18 at 00:00; Stop 08/15/18 at 09:53 ; Status DC Ondansetron HCl (Zofran Odt) 4 mg Q6HRS PRN PO NAUSEA/VOMITING 1ST CHOICE; Start 08/15/18 at 08:30 Oxycodone/ Acetaminophen (Percocet 10/325) 1 tab PRN Q4HRS PRN PO MODERATE TO SEVERE PAIN Last administered on 08/19/18at 12:27; Start 08/15/18 at 08:30; Stop 08/19/18 at 13:41; Status DC Pantoprazole Sodium (Protonix) 40 mg DAILYAC PO ; Start 08/16/18 at 07:30; Status Cancel Pantoprazole Sodium (PROTONIX VIAL for IV PUSH) 40 mg DAILYAC IVP ; Start at 07:30; Stop 08/16/18 at 07:30; Status DC Pantoprazole Sodium (PROTONIX VIAL for IV PUSH) 40 mg 1X ONCE IVP Last administered on 08/15/18at 09:54; Start 08/15/18 at 08:30; Stop 08/15/18 at 08:31 ; Status DC Multi-Ingredient Mouthwash/Gargle (Gi Cocktail) 20 ml 1X ONCE SWSW Last administered on 08/15/18at 11:01; Start 08/15/18 at 10:00; Stop 08/15/18 at 10:01 ; Status DC Multi-Ingredient Mouthwash/Gargle (Gi Cocktail) 20 ml PRN QID PRN PO CHEST PAIN Last administered on 08/18/18at 11:35; Start 08/15/18 at 10:00 Magnesium Hydroxide (Milk Of Magnesia) 2,400 mg PRN DAILY PRN PO CONSTIPATION ( 1st Choice); Start 08/15/18 at 10:00 Polyethylene Glycol (miraLAX PACKET) 17 gm PRN DAILY PRN PO CONSTIPATION (2nd Choice); Start 08/15/18 at 10:00 Pantoprazole Sodium (Protonix) 40 mg DAILYAC PO Last administered on 08/16/18at 06:02; Start 08/16/18 at 07:30; Stop 08/16/18 at 15:13; Status DC Hydromorphone HCl (Dilaudid) 1 mg 1X ONCE IV Last administered on 08/15/18at 18 :45; Start 08/15/18 at 18:45; Stop 08/15/18 at 18:46; Status DC Hydromorphone HCl (Dilaudid) 1 mg PRN Q4HRS PRN IV MODERATE PAIN, 2ND CHOICE Last administered on 08/21/18at 09:06; Start 08/16/18 at 08:30 Pantoprazole Sodium (PROTONIX VIAL for IV PUSH) 40 mg DAILYAC IVP Last administered on 08/19/18at 10:30; Start 08/17/18 at 07:30; Stop 08/20/18 at 11:16 ; Status DC Polyethylene Glycol (miraLAX PACKET) 17 gm DAILY PO Last administered on at 07:49; Start 08/16/18 at 17:00 Midazolam HCl (Versed) 2 mg PRN 1X PRN IV PRIOR TO PROCEDURE; Start 08/19/18 at 08:30; Stop 08/20/18 at 08:29; Status DC Fentanyl Citrate (Fentanyl 2ml Vial) 25 mcg PRN Q5MIN PRN IV X 2 DOSES FOR PAIN ; Start 08/19/18 at 08:30; Stop 08/20/18 at 08:29; Status DC Fentanyl Citrate (Fentanyl 2ml Vial) 50 mcg PRN Q5MIN PRN IV X 2 DOSES FOR PAIN ; Start 08/19/18 at 08:30; Stop 08/20/18 at 08:29; Status DC Ringer's Solution 1,000 ml @ 125 mls/hr Q8H IV Last administered on 08/19/18at 08:19; Start 08/19/18 at 08:16; Stop 08/19/18 at 11:08; Status DC Lidocaine HCl (Xylocaine-Mpf 1% 2ml Vial) 2 ml 1X PRN PRN ID IV START; Start at 08:30; Stop 08/20/18 at 08:29; Status DC Propofol 20 ml @ As Directed STK-MED ONCE IV ; Start 08/19/18 at 08:49; Stop at 08:50; Status DC Propofol 20 ml @ As Directed STK-MED ONCE IV ; Start 08/19/18 at 08:50; Stop at 08:51; Status DC Tramadol HCl (Ultram) 50 mg PRN Q6HRS PRN PO MILD PAIN Last administered on at 14:06; Start 08/19/18 at 13:45 Acetaminophen/ Hydrocodone Bitart (Lortab 5/325) 1 tab PRN Q6HRS PRN PO MODERATE - SEVERE PAIN Last administered on 08/21/18at 02:50; Start 08/19/18 at 13:45 Barium Sulfate (Liquid E-Z Paque) 710 ml 1X ONCE PO Last administered on at 09:30; Start 08/20/18 at 09:30; Stop 08/20/18 at 09:31; Status DC Pantoprazole Sodium (Protonix) 40 mg DAILYAC PO ; Start 08/21/18 at 07:30; Stop 08/21/18 at 07:30; Status DC Lansoprazole (Prevacid) 30 mg DAILYAC FT ; Start 08/21/18 at 07:30; Stop at 07:30; Status DC Dicyclomine HCl (Bentyl) 10 mg PRN QID PRN PO abd pain Last administered on at 21:59; Start 08/20/18 at 14:45 Sucralfate (Carafate) 1 gm BIDAC PEG ; Start 08/20/18 at 16:30; Stop 08/20/18 at 16:30; Status DC Lansoprazole (Prevacid) 30 mg DAILYAC PO ; Start 08/21/18 at 07:30; Stop at 07:30; Status DC Sucralfate (Carafate) 1 gm QIDACHS PO ; Start 08/20/18 at 16:30; Stop 08/20/18 at 16:30; Status DC Pantoprazole Sodium (PROTONIX VIAL for IV PUSH) 40 mg BIDAC IVP Last administered on 08/21/18at 08:19; Start 08/20/18 at 16:30 Sucralfate (Carafate) 1 gm QIDACHS PO Last administered on 08/21/18at 10:49; Start 08/20/18 at 16:30 Potassium Chloride/Sodium Chloride 1,000 ml @ 100 mls/hr Q10H IV Last administered on 08/21/18at 12:32; Start 08/20/18 at 17:30 Active Scripts Active Reported Protonix (Pantoprazole Sodium) 20 Mg Tablet.dr 1 Tab PO DAILY Vitals/I & O Vital Sign - Last 24 Hours 08/20/18 08/20/18 08/20/18 08/20/18 14:06 14:43 15:06 18:37 Temp 98.2 98.2 Pulse 48 Resp 16 B/P (MAP) 141/76 (97) Pulse Ox 100 100 O2 Delivery Room Air Room Air Room Air Room Air O2 Flow Rate 2.0 08/20/18 08/20/18 08/21/18 08/21/18 19:00 22:59 03:00 07:00 Temp 97.9 98.2 97.7 97.9 97.9 98.2 97.7 97.9 Pulse 54 58 40 46 Resp 16 16 16 18 B/P (MAP) 145/72 (96) 130/81 (97) 127/77 (94) 118/74 (89) Pulse Ox 100 98 98 98 O2 Delivery Room Air Room Air Room Air Room Air O2 Flow Rate 2.0 2.0 08/21/18 08/21/18 08/21/18 08/21/18 08:00 08:00 09:06 09:36 Pulse Ox 98 98 O2 Delivery Room Air Room Air Room Air Room Air O2 Flow Rate 2.0 2.0 2.0 08/21/18 11:00 Temp 98.4 98.4 Pulse 47 Resp 17 B/P (MAP) 113/68 (83) Pulse Ox 100 O2 Delivery Room Air Intake and Output 08/20/18 08/20/18 08/21/18 14:59 22:59 06:59 Intake Total 300 ml 600 ml Balance 300 ml 600 ml MARK MAJOR MD Aug 21, 2018 12:35
[2018-08-21 15:00] VITALS: BP 148/80
[2018-08-21 19:00] VITALS: BP 111/62
[2018-08-21 23:00] VITALS: BP 118/76
[2018-08-22 03:00] VITALS: BP 120/71
[2018-08-22 07:00] VITALS: BP 128/72
[2018-08-22] MEDS: SUCRALFATE 1 GM/10 ML ORAL.SUSP. PO SCH ×4 (07:46→21:05)
[2018-08-22] MEDS: PANTOPRAZOLE IV PUSH 40 MG VIAL. IVP SCH ×2 (07:46→16:58)
[2018-08-22] MEDS: POLYETHYLENE GLYCOL 3350 17 GM PACKET. PO SCH (07:47)
[2018-08-22] MEDS: HYDROcodone/APAP 5/325MG 1 TAB TABLET PO PRN ×2 (07:47→16:59)
[2018-08-22] MEDS: POTASSIUM CL 20MEQ-0.45% NACL 1,000 ML IV SCH ×2 (07:48→17:06)
--- NOTE | 2018-08-22 08:17 | PDOC ---
PROGRESS NOTES Chief Complaint Chief Complaint Abdominal pain, unclear etiology-acute abdominal series negative, blood work negative- Persistent emesis - resolved Recent bariatric surgery- Melody-en-Y bypass 15 months ago, [facility]-lost 188 pounds History of gout on indomethacin-has not been bothering him for quite a while now Obesity/overweight BMI 31.1 Transaminitis - AST History of Present Illness History of Present Illness Mr. 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 Has h/o c. diff and diverticulitis. Acute abdominal series at [place]-(he was a transfer on admission)-was normal Blood work nearly normal. AST elevated Still with abdominal pain over the weekend. Unable to advance diet. No BM since last week, has been on opioids. 08/19: EGD with no significant PUD per GI, no anastomotic lesions, still with pain on advancement of diet. I had a long discussion about planning to premedicate with tramadol prior to eating and to try to get a small bowel follow through series. 08/20: Still significant abdominal pain, some relief with oral meds prior to eating, taking less IV Dilaudid This is our third attempt to try to advance diet but every time he advances diet , he has severe epigastric abdominal pain. Consulted general surgery, d/w bariatric surgery. Started carafate with improvement. He still does have pain and is still having clear liquid diet. Plan: Maintain liquid diet for now and do advance if ok with GI and surgery Appreciate consult general surgery Tramadol for pain, try to get off IV meds Upper abd pain, nausea Lower abd pain GERD - on PPI H/o Melody-en-Y CRC screen, h/o polyps - thinks colonoscopy performed ~5 years ago Diverticular disease S/p cholecystectomy Trial of Miralax for ?constipation- no BM since Saturday. Acute abdominal series with moderate stool in colon.I Cont IV PPI Vitals Vitals Vital Signs Date Time Temp Pulse Resp B/P (MAP) Pulse Ox O2 Delivery O2 Flow Rate FiO2 08/22/18 07:47 Room Air 08/22/18 03:00 98.3 48 17 120/71 (87) 98.3 08/21/18 23:00 99 2.0 Physical Exam General: Alert, Oriented X3, Cooperative, No acute distress Heart: Regular rate, Normal S1, Normal S2 Lungs: Clear Abdomen: Soft, No tenderness Extremities: No clubbing, No cyanosis Skin: No rashes, No breakdown Comment Review of Relevant I have reviewed the following items ismael (where applicable) has been applied. Medications Current Medications Morphine Sulfate (Morphine Sulfate) 2 mg PRN Q2HR PRN IV MODERATE PAIN Last administered on 08/15/18at 00:36; Start 08/14/18 at 22:15; Stop 08/15/18 at 08:21 ; Status DC Morphine Sulfate (Morphine Sulfate) 4 mg PRN Q2HR PRN IV MODERATE PAIN Last administered on 08/16/18at 10:59; Start 08/14/18 at 22:15 Sodium Chloride 1,000 ml @ 75 mls/hr [id number] IV Last administered on at 03:24; Start 08/14/18 at 22:15; Stop 08/16/18 at 09:45; Status DC Famotidine (Pepcid Vial) 20 mg BID IVP Last administered on 08/15/18at 09:50; Start 08/14/18 at 22:30; Stop 08/15/18 at 10:53; Status DC Mesalamine (Pentasa) 250 mg [id number] PO Last administered on 08/15/18at 09:55; Start 08/14/18 at 22:30; Stop 08/15/18 at 10:53; Status DC Ondansetron HCl (Zofran Odt) 4 mg PRN Q8HRS PRN PO NAUSEA/VOMITING 1ST CHOICE Last administered on 08/15/18at 05:39; Start 08/14/18 at 22:15; Stop 08/15/18 at 08:21; Status DC Metronidazole 100 ml @ 100 mls/hr Q8HRS IV Last administered on 08/17/18at 05: 35; Start 08/14/18 at 23:00; Stop 08/17/18 at 09:11; Status DC Morphine Sulfate (Morphine Sulfate) 6 mg PRN Q2HR PRN IV SEVERE PAIN Last administered on 08/15/18at 00:01; Start 08/15/18 at 00:00; Stop 08/15/18 at 08:21 ; Status DC Morphine Sulfate (Morphine Sulfate) 8 mg PRN Q2HR PRN IV SEVERE PAIN Last administered on 08/15/18at 05:39; Start 08/15/18 at 00:00; Stop 08/15/18 at 09:53 ; Status DC Ondansetron HCl (Zofran Odt) 4 mg Q6HRS PRN PO NAUSEA/VOMITING 1ST CHOICE; Start 08/15/18 at 08:30 Oxycodone/ Acetaminophen (Percocet 10/325) 1 tab PRN Q4HRS PRN PO MODERATE TO SEVERE PAIN Last administered on 08/19/18at 12:27; Start 08/15/18 at 08:30; Stop 08/19/18 at 13:41; Status DC Pantoprazole Sodium (Protonix) 40 mg DAILYAC PO ; Start 08/16/18 at 07:30; Status Cancel Pantoprazole Sodium (PROTONIX VIAL for IV PUSH) 40 mg DAILYAC IVP ; Start at 07:30; Stop 08/16/18 at 07:30; Status DC Pantoprazole Sodium (PROTONIX VIAL for IV PUSH) 40 mg 1X ONCE IVP Last administered on 08/15/18at 09:54; Start 08/15/18 at 08:30; Stop 08/15/18 at 08:31 ; Status DC Multi-Ingredient Mouthwash/Gargle (Gi Cocktail) 20 ml 1X ONCE SWSW Last administered on 08/15/18at 11:01; Start 08/15/18 at 10:00; Stop 08/15/18 at 10:01 ; Status DC Multi-Ingredient Mouthwash/Gargle (Gi Cocktail) 20 ml PRN QID PRN PO CHEST PAIN Last administered on 08/18/18at 11:35; Start 08/15/18 at 10:00 Magnesium Hydroxide (Milk Of Magnesia) 2,400 mg PRN DAILY PRN PO CONSTIPATION ( 1st Choice); Start 08/15/18 at 10:00 Polyethylene Glycol (miraLAX PACKET) 17 gm PRN DAILY PRN PO CONSTIPATION (2nd Choice); Start 08/15/18 at 10:00 Pantoprazole Sodium (Protonix) 40 mg DAILYAC PO Last administered on 08/16/18at 06:02; Start 08/16/18 at 07:30; Stop 08/16/18 at 15:13; Status DC Hydromorphone HCl (Dilaudid) 1 mg 1X ONCE IV Last administered on 08/15/18at 18 :45; Start 08/15/18 at 18:45; Stop 08/15/18 at 18:46; Status DC Hydromorphone HCl (Dilaudid) 1 mg PRN Q4HRS PRN IV MODERATE PAIN, 2ND CHOICE Last administered on 08/21/18at 22:29; Start 08/16/18 at 08:30 Pantoprazole Sodium (PROTONIX VIAL for IV PUSH) 40 mg DAILYAC IVP Last administered on 08/19/18at 10:30; Start 08/17/18 at 07:30; Stop 08/20/18 at 11:16 ; Status DC Polyethylene Glycol (miraLAX PACKET) 17 gm DAILY PO Last administered on at 07:47; Start 08/16/18 at 17:00 Midazolam HCl (Versed) 2 mg PRN 1X PRN IV PRIOR TO PROCEDURE; Start 08/19/18 at 08:30; Stop 08/20/18 at 08:29; Status DC Fentanyl Citrate (Fentanyl 2ml Vial) 25 mcg PRN Q5MIN PRN IV X 2 DOSES FOR PAIN ; Start 08/19/18 at 08:30; Stop 08/20/18 at 08:29; Status DC Fentanyl Citrate (Fentanyl 2ml Vial) 50 mcg PRN Q5MIN PRN IV X 2 DOSES FOR PAIN ; Start 08/19/18 at 08:30; Stop 08/20/18 at 08:29; Status DC Ringer's Solution 1,000 ml @ 125 mls/hr Q8H IV Last administered on 08/19/18at 08:19; Start 08/19/18 at 08:16; Stop 08/19/18 at 11:08; Status DC Lidocaine HCl (Xylocaine-Mpf 1% 2ml Vial) 2 ml 1X PRN PRN ID IV START; Start at 08:30; Stop 08/20/18 at 08:29; Status DC Propofol 20 ml @ As Directed STK-MED ONCE IV ; Start 08/19/18 at 08:49; Stop at 08:50; Status DC Propofol 20 ml @ As Directed STK-MED ONCE IV ; Start 08/19/18 at 08:50; Stop at 08:51; Status DC Tramadol HCl (Ultram) 50 mg PRN Q6HRS PRN PO MILD PAIN Last administered on at 14:06; Start 08/19/18 at 13:45 Acetaminophen/ Hydrocodone Bitart (Lortab 5/325) 1 tab PRN Q6HRS PRN PO MODERATE - SEVERE PAIN Last administered on 08/22/18at 07:47; Start 08/19/18 at 13:45 Barium Sulfate (Liquid E-Z Paque) 710 ml 1X ONCE PO Last administered on at 09:30; Start 08/20/18 at 09:30; Stop 08/20/18 at 09:31; Status DC Pantoprazole Sodium (Protonix) 40 mg DAILYAC PO ; Start 08/21/18 at 07:30; Stop 08/21/18 at 07:30; Status DC Lansoprazole (Prevacid) 30 mg DAILYAC FT ; Start 08/21/18 at 07:30; Stop at 07:30; Status DC Dicyclomine HCl (Bentyl) 10 mg PRN QID PRN PO abd pain Last administered on at 21:59; Start 08/20/18 at 14:45 Sucralfate (Carafate) 1 gm BIDAC PEG ; Start 08/20/18 at 16:30; Stop 08/20/18 at 16:30; Status DC Lansoprazole (Prevacid) 30 mg DAILYAC PO ; Start 08/21/18 at 07:30; Stop at 07:30; Status DC Sucralfate (Carafate) 1 gm QIDACHS PO ; Start 08/20/18 at 16:30; Stop 08/20/18 at 16:30; Status DC Pantoprazole Sodium (PROTONIX VIAL for IV PUSH) 40 mg BIDAC IVP Last administered on 08/22/18at 07:46; Start 08/20/18 at 16:30 Sucralfate (Carafate) 1 gm QIDACHS PO Last administered on 08/22/18at 07:46; Start 08/20/18 at 16:30 Potassium Chloride/Sodium Chloride 1,000 ml @ 100 mls/hr Q10H IV Last administered on 08/22/18at 07:48; Start 08/20/18 at 17:30 Active Scripts Active Reported Protonix (Pantoprazole Sodium) 20 Mg Tablet.dr 1 Tab PO DAILY Vitals/I & O Vital Sign - Last 24 Hours 08/21/18 08/21/18 08/21/18 08/21/18 09:06 09:36 11:00 15:00 Temp 98.4 98.2 98.4 98.2 Pulse 47 46 Resp 17 16 B/P (MAP) 113/68 (83) 148/80 (102) Pulse Ox 98 98 100 100 O2 Delivery Room Air Room Air Room Air O2 Flow Rate 2.0 2.0 08/21/18 08/21/18 08/21/18 08/21/18 16:46 17:20 19:00 23:00 Temp 97.8 98.3 97.8 98.3 Pulse 42 42 Resp 16 17 B/P (MAP) 111/62 (78) 118/76 (90) Pulse Ox 100 99 O2 Delivery Room Air Room Air Room Air Room Air O2 Flow Rate 2.0 2.0 08/22/18 08/22/18 03:00 07:47 Temp 98.3 98.3 Pulse 48 Resp 17 B/P (MAP) 120/71 (87) O2 Delivery Room Air Room Air Intake and Output 08/21/18 08/21/18 08/22/18 15:00 23:00 07:00 Output Total 0 ml Balance 0 ml MARK MAJOR MD Aug 22, 2018 08:17
--- NOTE | 2018-08-22 09:12 | PDOC ---
Subjective: Subjective: Better. Rates pain about 3/10 before Lortab. Thinks Carafate also helpful. Still tolerating clears. Objective: Vital Signs: Vital Signs Date Time Temp Pulse Resp B/P (MAP) Pulse Ox O2 Delivery O2 Flow Rate FiO2 08/22/18 09:00 Room Air 08/22/18 07:00 97.4 44 18 128/72 (90) 97 97.4 08/21/18 23:00 2.0 PE: GEN: NAD LUNGS: CTAB HEART: RRR ABD: NABS, S/ND/NT NEURO/PSYCH: A & O 3 A/P: Post-prandial abd pain s/p Melody-en-Y w/ denuded mucosa at anastomosis - IMPROVED -- Seems reasonable to try advancing diet again and look to DC if tolerates - d/w RN - check w/ surgery. Continue Carafate 1g QID. Per Dr. Hanson, can keep to IV PPI while inpt (but send home w/ PO BID). Continue Miralax particularly if to continue Lortab or similar. Follow-up w/ Dr. Mcdonald. SANDOR ROBERSTON Aug 22, 2018 09:12
--- NOTE | 2018-08-22 09:21 | PDOC ---
SURGICAL PROGRESS NOTE Subjective continues to feel better tolerating liquids Vital Signs Vital Signs Date Time Temp Pulse Resp B/P (MAP) Pulse Ox O2 Delivery O2 Flow Rate FiO2 08/22/18 09:00 Room Air 08/22/18 07:00 97.4 44 18 128/72 (90) 97 97.4 08/21/18 23:00 2.0 I&O Intake and Output 08/22/18 06:59 Output Total 0 ml Balance 0 ml Output Urine Total 0 ml # Voids 2 # Bowel Movements 1 General: Alert, Oriented X3, Cooperative, No acute distress Abdomen: Soft, No tenderness Problem List continue carafate can FU as outpt with bariatric surgeon GERRY SAUCEDO APRN Aug 22, 2018 09:21
--- NOTE | 2018-08-22 09:22 | PDOC ---
SURGICAL PROGRESS NOTE Subjective Pt feels better, rajesh clears, pain improved Vital Signs Vital Signs Date Time Temp Pulse Resp B/P (MAP) Pulse Ox O2 Delivery O2 Flow Rate FiO2 08/22/18 09:00 Room Air 08/22/18 07:00 97.4 44 18 128/72 (90) 97 97.4 08/21/18 23:00 2.0 I&O Intake and Output 08/22/18 07:00 Output Total 0 ml Balance 0 ml Output Urine Total 0 ml # Voids 2 # Bowel Movements 1 PATIENT HAS A GARCIA: No General: Alert, Oriented X3, Cooperative, No acute distress Abdomen: Soft, No tenderness Problem List anastomotic ulcer appears to be improved will try soft diet (encouraged slippery) and work towards d/c home f/u with bariatric surgeon BINU DOWLING MD Aug 22, 2018 09:22
[2018-08-22 11:00] VITALS: BP 138/83
[2018-08-22] MEDS: traMADol 50 MG TABLET PO PRN (11:11)
[2018-08-22] MEDS: HYDROmorphone 2 MG/ML VIAL IV PRN ×2 (13:44→21:06)
[2018-08-22 15:00] VITALS: BP 134/80
[2018-08-22 19:00] VITALS: BP 120/90
[2018-08-22 23:00] VITALS: BP 120/81
[2018-08-23 03:00] VITALS: BP 123/77
[2018-08-23] MEDS: POTASSIUM CL 20MEQ-0.45% NACL 1,000 ML IV SCH ×2 (04:10→14:57)
[2018-08-23 07:00] VITALS: BP 117/75
[2018-08-23] MEDS: PANTOPRAZOLE IV PUSH 40 MG VIAL. IVP SCH ×2 (08:20→16:58)
[2018-08-23] MEDS: SUCRALFATE 1 GM/10 ML ORAL.SUSP. PO SCH ×4 (08:21→21:22)
[2018-08-23] MEDS: POLYETHYLENE GLYCOL 3350 17 GM PACKET. PO SCH (08:21)
[2018-08-23] MEDS: HYDROcodone/APAP 5/325MG 1 TAB TABLET PO PRN ×2 (08:22→15:05)
--- NOTE | 2018-08-23 08:59 | PDOC ---
SURGICAL PROGRESS NOTE Subjective Pt without c/o today, had pain with soft diet yesterday, No N/V Vital Signs Vital Signs Date Time Temp Pulse Resp B/P (MAP) Pulse Ox O2 Delivery O2 Flow Rate FiO2 08/23/18 08:22 16 100 Room Air 08/23/18 03:00 97.6 47 123/77 (92) 97.6 I&O Intake and Output 08/23/18 06:59 Intake Total 1085 ml Output Total 1 ml Balance 1084 ml Intake Oral 1085 ml Output Urine Total 1 ml # Voids 2 General: Alert, Oriented X3, Cooperative, No acute distress Abdomen: Soft, No tenderness Problem List anastomotic ulcer cont PPI and Carafate cont clears today, will consider ADAT to slippery tomorrow BINU DOWLING MD Aug 23, 2018 08:59
--- NOTE | 2018-08-23 09:29 | PDOC ---
PROGRESS NOTES Chief Complaint Chief Complaint Abdominal pain, unclear etiology-acute abdominal series negative, blood work negative- Persistent emesis - resolved Recent bariatric surgery- Melody-en-Y bypass 15 months ago, [facility]-lost 188 pounds History of gout on indomethacin-has not been bothering him for quite a while now Obesity/overweight BMI 31.1 Transaminitis - AST History of Present Illness History of Present Illness Mr. 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 Has h/o c. diff and diverticulitis. Acute abdominal series at [place]-(he was a transfer on admission)-was normal Blood work nearly normal. AST elevated Still with abdominal pain over the weekend. Unable to advance diet. No BM since last week, has been on opioids. 08/19: EGD with no significant PUD per GI, no anastomotic lesions, still with pain on advancement of diet. I had a long discussion about planning to premedicate with tramadol prior to eating and to try to get a small bowel follow through series. 08/20: Still significant abdominal pain, some relief with oral meds prior to eating, taking less IV Dilaudid This was our third attempt to try to advance diet but every time he advances diet, he has severe epigastric abdominal pain. Consulted general surgery, d/w bariatric surgery. 08/21-:Started carafate with improvement. He still does have pain and is still having clear liquid diet. Tried to advance on 08/22 with severe pain, put back on clears. Clearly has concern for anastomotic ulcer by general surgery Tolerated clear liquid diet again now. Will cont and try advance diet as tolerated tomorrow Plan: Maintain liquid diet for now and do advance if ok with GI and surgery Appreciate consult general surgery Tramadol for pain, try to get off IV meds Upper abd pain, nausea Lower abd pain GERD - on PPI H/o Melody-en-Y CRC screen, h/o polyps - thinks colonoscopy performed ~5 years ago Diverticular disease S/p cholecystectomy Trial of Miralax for ?constipation- no BM since Saturday. Acute abdominal series with moderate stool in colon.I Cont IV PPI Vitals Vitals Vital Signs Date Time Temp Pulse Resp B/P (MAP) Pulse Ox O2 Delivery O2 Flow Rate FiO2 2/23/19 08:22 16 100 Room Air 08/23/18 07:00 98.1 60 117/75 (89) 98.1 Physical Exam General: Alert, Oriented X3, Cooperative, No acute distress Heart: Regular rate, Normal S1, Normal S2 Lungs: Clear Abdomen: Soft, No tenderness Extremities: No clubbing, No cyanosis Skin: No rashes, No breakdown Comment Review of Relevant I have reviewed the following items ismael (where applicable) has been applied. Medications Current Medications Morphine Sulfate (Morphine Sulfate) 2 mg PRN Q2HR PRN IV MODERATE PAIN Last administered on 08/15/18 00:36; Start 08/14/18 at 22:15; Stop 08/15/18 at 08:21 ; Status DC Morphine Sulfate (Morphine Sulfate) 4 mg PRN Q2HR PRN IV MODERATE PAIN Last administered on 08/16/18at 10:59; Start 08/14/18 at 22:15 Sodium Chloride 1,000 ml @ 75 mls/hr [id number] IV Last administered on at 03:24; Start 08/14/18 at 22:15; Stop 08/16/18 at 09:45; Status DC Famotidine (Pepcid Vial) 20 mg BID IVP Last administered on 08/15/18at 09:50; Start 08/14/18 at 22:30; Stop 08/15/18 at 10:53; Status DC Mesalamine (Pentasa) 250 mg [id number] PO Last administered on 08/15/18at 09:55; Start 08/14/18 at 22:30; Stop 08/15/18 at 10:53; Status DC Ondansetron HCl (Zofran Odt) 4 mg PRN Q8HRS PRN PO NAUSEA/VOMITING 1ST CHOICE Last administered on 08/15/18at 05:39; Start 08/14/18 at 22:15; Stop 08/15/18 at 08:21; Status DC Metronidazole 100 ml @ 100 mls/hr Q8HRS IV Last administered on 08/17/18at 05: 35; Start 08/14/18 at 23:00; Stop 08/17/18 at 09:11; Status DC Morphine Sulfate (Morphine Sulfate) 6 mg PRN Q2HR PRN IV SEVERE PAIN Last administered on 08/15/18at 00:01; Start 08/15/18 at 00:00; Stop 08/15/18 at 08:21 ; Status DC Morphine Sulfate (Morphine Sulfate) 8 mg PRN Q2HR PRN IV SEVERE PAIN Last administered on 08/15/18at 05:39; Start 08/15/18 at 00:00; Stop 08/15/18 at 09:53 ; Status DC Ondansetron HCl (Zofran Odt) 4 mg Q6HRS PRN PO NAUSEA/VOMITING 1ST CHOICE; Start 08/15/18 at 08:30 Oxycodone/ Acetaminophen (Percocet 10/325) 1 tab PRN Q4HRS PRN PO MODERATE TO SEVERE PAIN Last administered on 08/19/18at 12:27; Start 08/15/18 at 08:30; Stop 08/19/18 at 13:41; Status DC Pantoprazole Sodium (Protonix) 40 mg DAILYAC PO ; Start 08/16/18 at 07:30; Status Cancel Pantoprazole Sodium (PROTONIX VIAL for IV PUSH) 40 mg DAILYAC IVP ; Start at 07:30; Stop 08/16/18 at 07:30; Status DC Pantoprazole Sodium (PROTONIX VIAL for IV PUSH) 40 mg 1X ONCE IVP Last administered on 08/15/18at 09:54; Start 08/15/18 at 08:30; Stop 08/15/18 at 08:31 ; Status DC Multi-Ingredient Mouthwash/Gargle (Gi Cocktail) 20 ml 1X ONCE SWSW Last administered on 08/15/18at 11:01; Start 08/15/18 at 10:00; Stop 08/15/18 at 10:01 ; Status DC Multi-Ingredient Mouthwash/Gargle (Gi Cocktail) 20 ml PRN QID PRN PO CHEST PAIN Last administered on 08/18/18at 11:35; Start 08/15/18 at 10:00 Magnesium Hydroxide (Milk Of Magnesia) 2,400 mg PRN DAILY PRN PO CONSTIPATION ( 1st Choice); Start 08/15/18 at 10:00 Polyethylene Glycol (miraLAX PACKET) 17 gm PRN DAILY PRN PO CONSTIPATION (2nd Choice); Start 08/15/18 at 10:00 Pantoprazole Sodium (Protonix) 40 mg DAILYAC PO Last administered on 08/16/18at 06:02; Start 08/16/18 at 07:30; Stop 08/16/18 at 15:13; Status DC Hydromorphone HCl (Dilaudid) 1 mg 1X ONCE IV Last administered on 08/15/18at 18 :45; Start 08/15/18 at 18:45; Stop 08/15/18 at 18:46; Status DC Hydromorphone HCl (Dilaudid) 1 mg PRN Q4HRS PRN IV MODERATE PAIN, 2ND CHOICE Last administered on 08/22/18at 21:06; Start 08/16/18 at 08:30 Pantoprazole Sodium (PROTONIX VIAL for IV PUSH) 40 mg DAILYAC IVP Last administered on 08/19/18at 10:30; Start 08/17/18 at 07:30; Stop 08/20/18 at 11:16 ; Status DC Polyethylene Glycol (miraLAX PACKET) 17 gm DAILY PO Last administered on at 08:21; Start 08/16/18 at 17:00 Midazolam HCl (Versed) 2 mg PRN 1X PRN IV PRIOR TO PROCEDURE; Start 08/19/18 at 08:30; Stop 08/20/18 at 08:29; Status DC Fentanyl Citrate (Fentanyl 2ml Vial) 25 mcg PRN Q5MIN PRN IV X 2 DOSES FOR PAIN ; Start 08/19/18 at 08:30; Stop 08/20/18 at 08:29; Status DC Fentanyl Citrate (Fentanyl 2ml Vial) 50 mcg PRN Q5MIN PRN IV X 2 DOSES FOR PAIN ; Start 08/19/18 at 08:30; Stop 08/20/18 at 08:29; Status DC Ringer's Solution 1,000 ml @ 125 mls/hr Q8H IV Last administered on 08/19/18at 08:19; Start 08/19/18 at 08:16; Stop 08/19/18 at 11:08; Status DC Lidocaine HCl (Xylocaine-Mpf 1% 2ml Vial) 2 ml 1X PRN PRN ID IV START; Start at 08:30; Stop 08/20/18 at 08:29; Status DC Propofol 20 ml @ As Directed STK-MED ONCE IV ; Start 08/19/18 at 08:49; Stop at 08:50; Status DC Propofol 20 ml @ As Directed STK-MED ONCE IV ; Start 08/19/18 at 08:50; Stop at 08:51; Status DC Tramadol HCl (Ultram) 50 mg PRN Q6HRS PRN PO MILD PAIN Last administered on at 11:11; Start 08/19/18 at 13:45 Acetaminophen/ Hydrocodone Bitart (Lortab 5/325) 1 tab PRN Q6HRS PRN PO MODERATE - SEVERE PAIN Last administered on 08/23/18 08:22; Start 08/19/18 at 13:45 Barium Sulfate (Liquid E-Z Paque) 710 ml 1X ONCE PO Last administered on 09:30; Start 08/20/18 at 09:30; Stop 08/20/18 at 09:31; Status DC Pantoprazole Sodium (Protonix) 40 mg DAILYAC PO ; Start 08/21/18 at 07:30; Stop 08/21/18 at 07:30; Status DC Lansoprazole (Prevacid) 30 mg DAILYAC FT ; Start 08/21/18 at 07:30; Stop at 07:30; Status DC Dicyclomine HCl (Bentyl) 10 mg PRN QID PRN PO abd pain Last administered on at 21:59; Start 08/20/18 at 14:45 Sucralfate (Carafate) 1 gm BIDAC PEG ; Start 08/20/18 at 16:30; Stop 08/20/18 at 16:30; Status DC Lansoprazole (Prevacid) 30 mg DAILYAC PO ; Start 08/21/18 at 07:30; Stop at 07:30; Status DC Sucralfate (Carafate) 1 gm QIDACHS PO ; Start 08/20/18 at 16:30; Stop 08/20/18 at 16:30; Status DC Pantoprazole Sodium (PROTONIX VIAL for IV PUSH) 40 mg BIDAC IVP Last administered on 08/23/18 08:20; Start 08/20/18 at 16:30 Sucralfate (Carafate) 1 gm QIDACHS PO Last administered on 08/23/18at 08:21; Start 08/20/18 at 16:30 Potassium Chloride/Sodium Chloride 1,000 ml @ 100 mls/hr Q10H IV Last administered on 08/23/18at 04:10; Start 08/20/18 at 17:30 Active Scripts Active Reported Protonix (Pantoprazole Sodium) 20 Mg Tablet. 1 Tab PO DAILY Vitals/I & O Vital Sign - Last 24 Hours 08/22/18 08/22/18 08/22/18 08/22/18 11:00 11:11 12:17 13:44 Temp 97.7 97.7 Pulse 51 Resp 18 B/P (MAP) 138/83 (101) Pulse Ox 100 O2 Delivery Room Air Room Air Room Air Room Air 08/22/18 08/22/18 08/22/18 08/22/18 15:00 16:59 18:15 19:00 Temp 97.7 97.8 97.7 97.8 Pulse 55 49 Resp 18 18 B/P (MAP) 134/80 (98) 120/90 (100) Pulse Ox 100 100 O2 Delivery Room Air Room Air Room Air 08/22/18 08/22/18 08/22/18 08/22/18 20:00 21:06 21:36 23:00 Temp 97.7 97.7 Pulse 45 Resp 20 20 18 B/P (MAP) 120/81 (94) Pulse Ox 100 O2 Delivery Room Air Room Air 08/23/18 08/23/18 08/23/18 03:00 07:00 08:22 Temp 97.6 98.1 97.6 98.1 Pulse 47 60 Resp 14 16 16 B/P (MAP) 123/77 (92) 117/75 (89) Pulse Ox 100 97 100 O2 Delivery Room Air Room Air Room Air Intake and Output 08/22/18 08/22/18 08/23/18 14:59 22:59 06:59 Intake Total 300 ml 300 ml 485 ml Output Total 1 ml Balance 299 ml 300 ml 485 ml MARK MAJOR MD Aug 23, 2018 09:29
[2018-08-23 11:00] VITALS: BP 127/78
[2018-08-23 15:00] VITALS: BP 118/77
[2018-08-23 19:00] VITALS: BP 121/77
[2018-08-23 22:33] VITALS: BP 124/82
[2018-08-24] MEDS: POTASSIUM CL 20MEQ-0.45% NACL 1,000 ML IV SCH ×3 (00:40→20:49)
[2018-08-24 02:45] VITALS: BP 130/77
[2018-08-24 07:00] VITALS: BP 105/64
--- NOTE | 2018-08-24 08:23 | PDOC ---
PROGRESS NOTES Chief Complaint Chief Complaint Abdominal pain, unclear etiology-acute abdominal series negative, blood work negative- Persistent emesis - resolved Recent bariatric surgery- Melody-en-Y bypass 15 months ago, [facility]-lost 188 pounds History of gout on indomethacin-has not been bothering him for quite a while now Obesity/overweight BMI 31.1 Transaminitis - AST History of Present Illness History of Present Illness Mr. 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 Has h/o c. diff and diverticulitis. Acute abdominal series at [place]-(he was a transfer on admission)-was normal Blood work nearly normal. AST elevated Still with abdominal pain over the weekend. Unable to advance diet. No BM since last week, has been on opioids. 08/19: EGD with no significant PUD per GI, no anastomotic lesions, still with pain on advancement of diet. I had a long discussion about planning to premedicate with tramadol prior to eating and to try to get a small bowel follow through series. 08/20: Still significant abdominal pain, some relief with oral meds prior to eating, taking less IV Dilaudid This was our third attempt to try to advance diet but every time he advances diet, he has severe epigastric abdominal pain. Consulted general surgery, d/w bariatric surgery. 08/21-:Started carafate with improvement. He still does have pain and is still having clear liquid diet. Tried to advance on 08/22 with severe pain, put back on clears. Clearly has concern for anastomotic ulcer by general surgery 08/23: Tolerated clear liquid diet again now. Will cont and try advance diet as tolerated tomorrow. Tolerated clear liquid breakfast, he and his are in good spirits today. Plan: Maintain liquid diet for now and do advance if ok with GI and surgery. I will simply order full liquid and await surgery and GI recs. He has been inpatient for quite some time, so realistically if we don't make any headway it would be appropriate to transfer to [facility] where he can see his bariatric surgeon if he fails diet advancement again. Appreciate consult general surgery Tramadol for pain, try to get off IV meds Upper abd pain, nausea Lower abd pain GERD - on PPI H/o Melody-en-Y CRC screen, h/o polyps - thinks colonoscopy performed ~5 years ago Diverticular disease S/p cholecystectomy Trial of Miralax for ?constipation- no BM since Saturday. Acute abdominal series with moderate stool in colon.I Cont IV PPI Vitals Vitals Vital Signs Date Time Temp Pulse Resp B/P (MAP) Pulse Ox O2 Delivery O2 Flow Rate FiO2 08/24/18 07:00 98.4 44 18 105/64 (78) 98 Room Air 2.0 98.4 Physical Exam General: Alert, Oriented X3, Cooperative, No acute distress Heart: Regular rate, Normal S1, Normal S2 Lungs: Clear Abdomen: Soft, No tenderness Extremities: No clubbing, No cyanosis Skin: No rashes, No breakdown Comment Review of Relevant I have reviewed the following items ismael (where applicable) has been applied. Medications Current Medications Morphine Sulfate (Morphine Sulfate) 2 mg PRN Q2HR PRN IV MODERATE PAIN Last administered on 08/15/18at 00:36; Start 08/14/18 at 22:15; Stop 08/15/18 at 08:21 ; Status DC Morphine Sulfate (Morphine Sulfate) 4 mg PRN Q2HR PRN IV MODERATE PAIN Last administered on 08/16/18at 10:59; Start 08/14/18 at 22:15 Sodium Chloride 1,000 ml @ 75 mls/hr [id number] IV Last administered on at 03:24; Start 08/14/18 at 22:15; Stop 08/16/18 at 09:45; Status DC Famotidine (Pepcid Vial) 20 mg BID IVP Last administered on 08/15/18at 09:50; Start 08/14/18 at 22:30; Stop 08/15/18 at 10:53; Status DC Mesalamine (Pentasa) 250 mg [id number] PO Last administered on 08/15/18at 09:55; Start 08/14/18 at 22:30; Stop 08/15/18 at 10:53; Status DC Ondansetron HCl (Zofran Odt) 4 mg PRN Q8HRS PRN PO NAUSEA/VOMITING 1ST CHOICE Last administered on 08/15/18at 05:39; Start 08/14/18 at 22:15; Stop 08/15/18 at 08:21; Status DC Metronidazole 100 ml @ 100 mls/hr Q8HRS IV Last administered on 08/17/18at 05: 35; Start 08/14/18 at 23:00; Stop 08/17/18 at 09:11; Status DC Morphine Sulfate (Morphine Sulfate) 6 mg PRN Q2HR PRN IV SEVERE PAIN Last administered on 08/15/18at 00:01; Start 08/15/18 at 00:00; Stop 08/15/18 at 08:21 ; Status DC Morphine Sulfate (Morphine Sulfate) 8 mg PRN Q2HR PRN IV SEVERE PAIN Last administered on 08/15/18at 05:39; Start 08/15/18 at 00:00; Stop 08/15/18 at 09:53 ; Status DC Ondansetron HCl (Zofran Odt) 4 mg Q6HRS PRN PO NAUSEA/VOMITING 1ST CHOICE; Start 08/15/18 at 08:30 Oxycodone/ Acetaminophen (Percocet 10/325) 1 tab PRN Q4HRS PRN PO MODERATE TO SEVERE PAIN Last administered on 08/19/18at 12:27; Start 08/15/18 at 08:30; Stop 08/19/18 at 13:41; Status DC Pantoprazole Sodium (Protonix) 40 mg DAILYAC PO ; Start 08/16/18 at 07:30; Status Cancel Pantoprazole Sodium (PROTONIX VIAL for IV PUSH) 40 mg DAILYAC IVP ; Start at 07:30; Stop 08/16/18 at 07:30; Status DC Pantoprazole Sodium (PROTONIX VIAL for IV PUSH) 40 mg 1X ONCE IVP Last administered on 08/15/18at 09:54; Start 08/15/18 at 08:30; Stop 08/15/18 at 08:31 ; Status DC Multi-Ingredient Mouthwash/Gargle (Gi Cocktail) 20 ml 1X ONCE SWSW Last administered on 08/15/18at 11:01; Start 08/15/18 at 10:00; Stop 08/15/18 at 10:01 ; Status DC Multi-Ingredient Mouthwash/Gargle (Gi Cocktail) 20 ml PRN QID PRN PO CHEST PAIN Last administered on 08/18/18at 11:35; Start 08/15/18 at 10:00 Magnesium Hydroxide (Milk Of Magnesia) 2,400 mg PRN DAILY PRN PO CONSTIPATION ( 1st Choice); Start 08/15/18 at 10:00 Polyethylene Glycol (miraLAX PACKET) 17 gm PRN DAILY PRN PO CONSTIPATION (2nd Choice); Start 08/15/18 at 10:00 Pantoprazole Sodium (Protonix) 40 mg DAILYAC PO Last administered on 08/16/18at 06:02; Start 08/16/18 at 07:30; Stop 08/16/18 at 15:13; Status DC Hydromorphone HCl (Dilaudid) 1 mg 1X ONCE IV Last administered on 08/15/18at 18 :45; Start 08/15/18 at 18:45; Stop 08/15/18 at 18:46; Status DC Hydromorphone HCl (Dilaudid) 1 mg PRN Q4HRS PRN IV MODERATE PAIN, 2ND CHOICE Last administered on 08/22/18at 21:06; Start 08/16/18 at 08:30 Pantoprazole Sodium (PROTONIX VIAL for IV PUSH) 40 mg DAILYAC IVP Last administered on 08/19/18at 10:30; Start 08/17/18 at 07:30; Stop 08/20/18 at 11:16 ; Status DC Polyethylene Glycol (miraLAX PACKET) 17 gm DAILY PO Last administered on at 08:21; Start 08/16/18 at 17:00 Midazolam HCl (Versed) 2 mg PRN 1X PRN IV PRIOR TO PROCEDURE; Start 08/19/18 at 08:30; Stop 08/20/18 at 08:29; Status DC Fentanyl Citrate (Fentanyl 2ml Vial) 25 mcg PRN Q5MIN PRN IV X 2 DOSES FOR PAIN ; Start 08/19/18 at 08:30; Stop 08/20/18 at 08:29; Status DC Fentanyl Citrate (Fentanyl 2ml Vial) 50 mcg PRN Q5MIN PRN IV X 2 DOSES FOR PAIN ; Start 08/19/18 at 08:30; Stop 08/20/18 at 08:29; Status DC Ringer's Solution 1,000 ml @ 125 mls/hr Q8H IV Last administered on 08/19/18at 08:19; Start 08/19/18 at 08:16; Stop 08/19/18 at 11:08; Status DC Lidocaine HCl (Xylocaine-Mpf 1% 2ml Vial) 2 ml 1X PRN PRN ID IV START; Start at 08:30; Stop 08/20/18 at 08:29; Status DC Propofol 20 ml @ As Directed STK-MED ONCE IV ; Start 08/19/18 at 08:49; Stop at 08:50; Status DC Propofol 20 ml @ As Directed STK-MED ONCE IV ; Start 08/19/18 at 08:50; Stop at 08:51; Status DC Tramadol HCl (Ultram) 50 mg PRN Q6HRS PRN PO MILD PAIN Last administered on at 11:11; Start 08/19/18 at 13:45 Acetaminophen/ Hydrocodone Bitart (Lortab 5/325) 1 tab PRN Q6HRS PRN PO MODERATE - SEVERE PAIN Last administered on 08/23/18at 15:05; Start 08/19/18 at 13:45 Barium Sulfate (Liquid E-Z Paque) 710 ml 1X ONCE PO Last administered on at 09:30; Start 08/20/18 at 09:30; Stop 08/20/18 at 09:31; Status DC Pantoprazole Sodium (Protonix) 40 mg DAILYAC PO ; Start 08/21/18 at 07:30; Stop 08/21/18 at 07:30; Status DC Lansoprazole (Prevacid) 30 mg DAILYAC FT ; Start 08/21/18 at 07:30; Stop at 07:30; Status DC Dicyclomine HCl (Bentyl) 10 mg PRN QID PRN PO abd pain Last administered on at 21:59; Start 08/20/18 at 14:45 Sucralfate (Carafate) 1 gm BIDAC PEG ; Start 08/20/18 at 16:30; Stop 08/20/18 at 16:30; Status DC Lansoprazole (Prevacid) 30 mg DAILYAC PO ; Start 08/21/18 at 07:30; Stop at 07:30; Status DC Sucralfate (Carafate) 1 gm QIDACHS PO ; Start 08/20/18 at 16:30; Stop 08/20/18 at 16:30; Status DC Pantoprazole Sodium (PROTONIX VIAL for IV PUSH) 40 mg BIDAC IVP Last administered on 08/23/18at 16:58; Start 08/20/18 at 16:30 Sucralfate (Carafate) 1 gm QIDACHS PO Last administered on 08/23/18at 21:22; Start 08/20/18 at 16:30 Potassium Chloride/Sodium Chloride 1,000 ml @ 100 mls/hr Q10H IV Last administered on 08/24/18at 00:40; Start 08/20/18 at 17:30 Active Scripts Active Reported Protonix (Pantoprazole Sodium) 20 Mg Tablet. 1 Tab PO DAILY Vitals/I & O Vital Sign - Last 24 Hours 08/23/18 08/23/18 08/23/18 08/23/18 09:25 11:00 15:00 15:05 Temp 98.3 98.1 98.3 98.1 Pulse 46 43 Resp 18 16 16 B/P (MAP) 127/78 (94) 118/77 (91) Pulse Ox 100 98 100 O2 Delivery Room Air Room Air Room Air O2 Flow Rate 2.0 08/23/18 08/23/18 08/23/18 08/23/18 16:10 19:00 20:00 22:33 Temp 98.7 98.0 98.7 98.0 Pulse 68 47 Resp 16 18 18 B/P (MAP) 121/77 (92) 124/82 (96) Pulse Ox 100 100 100 O2 Delivery Room Air Room Air Room Air Room Air 08/24/18 08/24/18 02:45 07:00 Temp 98.1 98.4 98.1 98.4 Pulse 63 44 Resp 17 18 B/P (MAP) 130/77 (94) 105/64 (78) Pulse Ox 100 98 O2 Delivery Room Air Room Air O2 Flow Rate 2.0 Intake and Output 08/23/18 08/23/18 08/24/18 15:00 23:00 07:00 Intake Total 400 ml 700 ml Balance 400 ml 700 ml MARK MAJOR MD Aug 24, 2018 08:23
[2018-08-24] MEDS: SUCRALFATE 1 GM/10 ML ORAL.SUSP. PO SCH ×4 (08:24→20:49)
[2018-08-24] MEDS: POLYETHYLENE GLYCOL 3350 17 GM PACKET. PO SCH (08:24)
[2018-08-24] MEDS: PANTOPRAZOLE IV PUSH 40 MG VIAL. IVP SCH ×2 (08:25→16:35)
[2018-08-24 11:00] VITALS: BP 119/78
--- NOTE | 2018-08-24 13:57 | PDOC ---
SURGICAL PROGRESS NOTE Subjective Pt feels better, rajesh diet, pain well controlled Vital Signs Vital Signs Date Time Temp Pulse Resp B/P (MAP) Pulse Ox O2 Delivery O2 Flow Rate FiO2 08/24/18 11:00 98.3 63 17 119/78 (92) 96 Room Air 2.0 98.3 I&O Intake and Output 08/24/18 07:00 Intake Total 1100 ml Balance 1100 ml Intake Oral 1100 ml General: Alert, Oriented X3, Cooperative, No acute distress Abdomen: Soft, No tenderness Problem List anastomotic ulcer appears to be improved ADAT Ok to work on d/c recommend f/u with Dr. Mcdonald, his bariatric surgeon BINU DOWLING MD Aug 24, 2018 13:57
[2018-08-24 15:00] VITALS: BP_SYST 121; BP_SYST 124; BP_DIAS 58; BP_DIAS 77
[2018-08-24 19:00] VITALS: BP 130/86
[2018-08-24 23:00] VITALS: BP 119/74
[2018-08-25 03:00] VITALS: BP 116/75
[2018-08-25 07:00] VITALS: BP 106/58
[2018-08-25] MEDS: PANTOPRAZOLE IV PUSH 40 MG VIAL. IVP SCH ×2 (09:33→18:04)
[2018-08-25] MEDS: POLYETHYLENE GLYCOL 3350 17 GM PACKET. PO SCH (09:34)
[2018-08-25] MEDS: SUCRALFATE 1 GM/10 ML ORAL.SUSP. PO SCH ×4 (09:34→21:23)
--- NOTE | 2018-08-25 09:45 | PDOC ---
SURGICAL PROGRESS NOTE Subjective Pt without c/o, rajesh full liquids Vital Signs Vital Signs Date Time Temp Pulse Resp B/P (MAP) Pulse Ox O2 Delivery O2 Flow Rate FiO2 08/25/18 07:00 97.9 46 18 106/58 (74) 97 Room Air 97.9 08/24/18 15:00 2.0 I&O Intake and Output 08/25/18 07:00 Intake Total 2180 ml Output Total 3 ml Balance 2177 ml Intake Oral 980 ml IV Total 1200 ml Output Urine Total 3 ml # Bowel Movements 3 General: Alert, Oriented X3, Cooperative, No acute distress Abdomen: Soft, No tenderness Problem List anastomotic ulcer appears to be doing well OK to work on d/c f/u with bariatrics BINU DOWLING MD Aug 25, 2018 09:45
[2018-08-25 10:45] VITALS: BP 110/62
--- NOTE | 2018-08-25 12:51 | PDOC ---
Subjective: Subjective: Says hasn't had pain meds since Sat. Rates pain 3/10 "but manageable." Tolerating full liquids. Objective: Objective: Apparently pain worsened on Saturday after diet was advanced. 3 stools charted today. Vital Signs: Vital Signs Date Time Temp Pulse Resp B/P (MAP) Pulse Ox O2 Delivery O2 Flow Rate FiO2 08/25/18 10:45 97.8 50 18 110/62 (78) 97 Room Air 97.8 08/24/18 15:00 2.0 PE: GEN: NAD LUNGS: CTAB HEART: RRR ABD: soft, very mild/vague tenderness epigastrium NEURO/PSYCH: A & O 3 A/P: Post-prandial abd pain - better S/p Melody-en-Y w/ denuded mucosa at anastomosis -- Has been here since 08/15... ?DC soon - tolerating PO, not needing pain meds. I encouraged him to call now to schedule an appt w/ Dr. Mcdonald. Continue Carafate and PPI. SANDOR ROBERTSON Aug 25, 2018 12:51
--- NOTE | 2018-08-25 13:25 | PDOC ---
PROGRESS NOTES Chief Complaint Chief Complaint Abdominal pain, unclear etiology-acute abdominal series negative, blood work negative- Persistent emesis - resolved Recent bariatric surgery- Elke-en-Y bypass 15 months ago, [facility] [place]-lost 188 pounds History of gout on indomethacin- Obesity/overweight BMI 31.1 Transaminitis - AST History of Present Illness History of Present Illness Mr. Worrell is a 43 yo morbidly obese patient w/ HUDSON s/p elke-en-y gastric bypass surgery 15 months ago s/p 185lb weight loss. Has h/o c. diff and diverticulitis. Acute abdominal series at [place]-(he was a transfer on admission)-was normal Blood work nearly normal. AST elevated Still with abdominal pain over the weekend.rajesh full liquids No BM since last week, has been on opioids. 08/19: EGD with no significant PUD per GI, no anastomotic lesions, still with pain on advancement of diet. I had a long discussion about planning to premedicate with tramadol prior to eating and to try to get a small bowel follow through series. 08/20: Still significant abdominal pain, some relief with oral meds prior to eating, taking less IV Dilaudid This was our third attempt to try to advance diet but every time he advances diet, he has severe epigastric abdominal pain. Consulted general surgery, d/w bariatric surgery. 08/21-:Started carafate with improvement. He still does have pain and is still having clear liquid diet. Tried to advance on 08/22 with severe pain, put back on clears. Clearly has concern for anastomotic ulcer by general surgery 08/23: Tolerated clear liquid diet again now. Will cont and try advance diet as tolerated tomorrow. 08/24 Tolerated clear liquid breakfast, 08/25 working toward d/c today or soon to see bariatric surgeon soon at [facility] HE WANTS TO TRY SOLID FOOD TODAY before going home Plan: diet advance if ok with GI and surgery. Appreciate consult general surgery Tramadol for pain, try to get off IV meds Upper abd pain, nausea Lower abd pain GERD - on PPI H/o Elke-en-Y CRC screen, h/o polyps - thinks colonoscopy performed ~5 years ago Diverticular disease S/p cholecystectomy Trial of Miralax for ?constipation- no BM since Saturday. Acute abdominal series with moderate stool in colon.I Cont IV PPI Vitals Vitals Vital Signs Date Time Temp Pulse Resp B/P (MAP) Pulse Ox O2 Delivery O2 Flow Rate FiO2 08/25/18 10:45 97.8 50 18 110/62 (78) 97 Room Air 97.8 08/25/18 08:00 2.0 Physical Exam General: Alert, Oriented X3, Cooperative, No acute distress Heart: Regular rate, Normal S1, Normal S2 Lungs: Clear Abdomen: Soft, No tenderness Extremities: No clubbing, No cyanosis Skin: No rashes, No breakdown Comment Review of Relevant I have reviewed the following items ismael (where applicable) has been applied. Medications Current Medications Morphine Sulfate (Morphine Sulfate) 2 mg PRN Q2HR PRN IV MODERATE PAIN Last administered on 08/15/18at 00:36; Start 08/14/18 at 22:15; Stop 08/15/18 at 08:21 ; Status DC Morphine Sulfate (Morphine Sulfate) 4 mg PRN Q2HR PRN IV MODERATE PAIN Last administered on 08/16/18at 10:59; Start 08/14/18 at 22:15 Sodium Chloride 1,000 ml @ 75 mls/hr [id number] IV Last administered on at 03:24; Start 08/14/18 at 22:15; Stop 08/16/18 at 09:45; Status DC Famotidine (Pepcid Vial) 20 mg BID IVP Last administered on 08/15/18at 09:50; Start 08/14/18 at 22:30; Stop 08/15/18 at 10:53; Status DC Mesalamine (Pentasa) 250 mg [id number] PO Last administered on 08/15/18at 09:55; Start 08/14/18 at 22:30; Stop 08/15/18 at 10:53; Status DC Ondansetron HCl (Zofran Odt) 4 mg PRN Q8HRS PRN PO NAUSEA/VOMITING 1ST CHOICE Last administered on 08/15/18at 05:39; Start 08/14/18 at 22:15; Stop 08/15/18 at 08:21; Status DC Metronidazole 100 ml @ 100 mls/hr Q8HRS IV Last administered on 08/17/18at 05: 35; Start 08/14/18 at 23:00; Stop 08/17/18 at 09:11; Status DC Morphine Sulfate (Morphine Sulfate) 6 mg PRN Q2HR PRN IV SEVERE PAIN Last administered on 08/15/18at 00:01; Start 08/15/18 at 00:00; Stop 08/15/18 at 08:21 ; Status DC Morphine Sulfate (Morphine Sulfate) 8 mg PRN Q2HR PRN IV SEVERE PAIN Last administered on 08/15/18at 05:39; Start 08/15/18 at 00:00; Stop 08/15/18 at 09:53 ; Status DC Ondansetron HCl (Zofran Odt) 4 mg Q6HRS PRN PO NAUSEA/VOMITING 1ST CHOICE; Start 08/15/18 at 08:30 Oxycodone/ Acetaminophen (Percocet 10/325) 1 tab PRN Q4HRS PRN PO MODERATE TO SEVERE PAIN Last administered on 08/19/18at 12:27; Start 08/15/18 at 08:30; Stop 08/19/18 at 13:41; Status DC Pantoprazole Sodium (Protonix) 40 mg DAILYAC PO ; Start 08/16/18 at 07:30; Status Cancel Pantoprazole Sodium (PROTONIX VIAL for IV PUSH) 40 mg DAILYAC IVP ; Start at 07:30; Stop 08/16/18 at 07:30; Status DC Pantoprazole Sodium (PROTONIX VIAL for IV PUSH) 40 mg 1X ONCE IVP Last administered on 08/15/18at 09:54; Start 08/15/18 at 08:30; Stop 08/15/18 at 08:31 ; Status DC Multi-Ingredient Mouthwash/Gargle (Gi Cocktail) 20 ml 1X ONCE SWSW Last administered on 08/15/18at 11:01; Start 08/15/18 at 10:00; Stop 08/15/18 at 10:01 ; Status DC Multi-Ingredient Mouthwash/Gargle (Gi Cocktail) 20 ml PRN QID PRN PO CHEST PAIN Last administered on 08/18/18at 11:35; Start 08/15/18 at 10:00 Magnesium Hydroxide (Milk Of Magnesia) 2,400 mg PRN DAILY PRN PO CONSTIPATION ( 1st Choice); Start 08/15/18 at 10:00 Polyethylene Glycol (miraLAX PACKET) 17 gm PRN DAILY PRN PO CONSTIPATION (2nd Choice); Start 08/15/18 at 10:00 Pantoprazole Sodium (Protonix) 40 mg DAILYAC PO Last administered on 08/16/18at 06:02; Start 08/16/18 at 07:30; Stop 08/16/18 at 15:13; Status DC Hydromorphone HCl (Dilaudid) 1 mg 1X ONCE IV Last administered on 08/15/18at 18 :45; Start 08/15/18 at 18:45; Stop 08/15/18 at 18:46; Status DC Hydromorphone HCl (Dilaudid) 1 mg PRN Q4HRS PRN IV MODERATE PAIN, 2ND CHOICE Last administered on 08/22/18at 21:06; Start 08/16/18 at 08:30 Pantoprazole Sodium (PROTONIX VIAL for IV PUSH) 40 mg DAILYAC IVP Last administered on 08/19/18at 10:30; Start 08/17/18 at 07:30; Stop 08/20/18 at 11:16 ; Status DC Polyethylene Glycol (miraLAX PACKET) 17 gm DAILY PO Last administered on at 09:34; Start 08/16/18 at 17:00 Midazolam HCl (Versed) 2 mg PRN 1X PRN IV PRIOR TO PROCEDURE; Start 08/19/18 at 08:30; Stop 08/20/18 at 08:29; Status DC Fentanyl Citrate (Fentanyl 2ml Vial) 25 mcg PRN Q5MIN PRN IV X 2 DOSES FOR PAIN ; Start 08/19/18 at 08:30; Stop 08/20/18 at 08:29; Status DC Fentanyl Citrate (Fentanyl 2ml Vial) 50 mcg PRN Q5MIN PRN IV X 2 DOSES FOR PAIN ; Start 08/19/18 at 08:30; Stop 08/20/18 at 08:29; Status DC Ringer's Solution 1,000 ml @ 125 mls/hr Q8H IV Last administered on 08/19/18at 08:19; Start 08/19/18 at 08:16; Stop 08/19/18 at 11:08; Status DC Lidocaine HCl (Xylocaine-Mpf 1% 2ml Vial) 2 ml 1X PRN PRN ID IV START; Start at 08:30; Stop 08/20/18 at 08:29; Status DC Propofol 20 ml @ As Directed STK-MED ONCE IV ; Start 08/19/18 at 08:49; Stop at 08:50; Status DC Propofol 20 ml @ As Directed STK-MED ONCE IV ; Start 08/19/18 at 08:50; Stop at 08:51; Status DC Tramadol HCl (Ultram) 50 mg PRN Q6HRS PRN PO MILD PAIN Last administered on at 11:11; Start 08/19/18 at 13:45 Acetaminophen/ Hydrocodone Bitart (Lortab 5/325) 1 tab PRN Q6HRS PRN PO MODERATE - SEVERE PAIN Last administered on 08/23/18at 15:05; Start 08/19/18 at 13:45 Barium Sulfate (Liquid E-Z Paque) 710 ml 1X ONCE PO Last administered on at 09:30; Start 08/20/18 at 09:30; Stop 08/20/18 at 09:31; Status DC Pantoprazole Sodium (Protonix) 40 mg DAILYAC PO ; Start 08/21/18 at 07:30; Stop 08/21/18 at 07:30; Status DC Lansoprazole (Prevacid) 30 mg DAILYAC FT ; Start 08/21/18 at 07:30; Stop at 07:30; Status DC Dicyclomine HCl (Bentyl) 10 mg PRN QID PRN PO abd pain Last administered on at 21:59; Start 08/20/18 at 14:45 Sucralfate (Carafate) 1 gm BIDAC PEG ; Start 08/20/18 at 16:30; Stop 08/20/18 at 16:30; Status DC Lansoprazole (Prevacid) 30 mg DAILYAC PO ; Start 08/21/18 at 07:30; Stop at 07:30; Status DC Sucralfate (Carafate) 1 gm QIDACHS PO ; Start 08/20/18 at 16:30; Stop 08/20/18 at 16:30; Status DC Pantoprazole Sodium (PROTONIX VIAL for IV PUSH) 40 mg BIDAC IVP Last administered on 08/25/18at 09:33; Start 08/20/18 at 16:30 Sucralfate (Carafate) 1 gm QIDACHS PO Last administered on 08/25/18at 12:26; Start 08/20/18 at 16:30 Potassium Chloride/Sodium Chloride 1,000 ml @ 100 mls/hr Q10H IV Last administered on 08/24/18at 20:49; Start 08/20/18 at 17:30 Active Scripts Active Reported Protonix (Pantoprazole Sodium) 20 Mg Tablet. 1 Tab PO DAILY Vitals/I & O Vital Sign - Last 24 Hours 08/24/18 08/24/18 08/24/18 08/24/18 15:00 19:00 20:00 23:00 Temp 97.6 98.3 98.8 97.6 98.3 98.8 Pulse 53 45 78 Resp 18 20 20 B/P (MAP) 121/77 (92) 130/86 (101) 119/74 (89) Pulse Ox 96 100 100 O2 Delivery Room Air Room Air Room Air Room Air O2 Flow Rate 2.0 08/25/18 08/25/18 08/25/18 08/25/18 03:00 07:00 08:00 10:45 Temp 98.2 97.9 97.8 98.2 97.9 97.8 Pulse 49 46 50 Resp 20 18 B/P (MAP) 116/75 (89) 106/58 (74) 110/62 (78) Pulse Ox 98 97 97 O2 Delivery Room Air Room Air Room Air Room Air O2 Flow Rate 2.0 Intake and Output 08/24/18 08/24/18 08/25/18 14:59 22:59 06:59 Intake Total 0 ml 740 ml 1440 ml Output Total 2 ml 1 ml Balance -2 ml 739 ml 1440 ml EDITH JANSEN MD Aug 25, 2018 13:25
[2018-08-25 15:00] VITALS: BP 108/60
[2018-08-25 17:13] LABS: BASO % 0 % (0-3); EOS # 0.1 x10^3/uL (0.0-0.7); EOS % 1 % (0-3); HEMATOCRIT 43.3 % (39.0-53.0); HEMOGLOBIN 14.6 g/dL (13.0-17.5); LYMPH # 2.5 x10^3/uL (1.0-4.8); LYMPH % 46 % (24-48); MEAN CORPUSCULAR HEMOGLOBIN 29 pg (25-35); MEAN CORPUSCULAR HGB CONC 34 g/dL (31-37); MEAN CORPUSCULAR VOLUME 87 fL (79-100); MONO # 0.4 x10^3/uL (0.0-1.1); MONO % 7 % (0-9); NEUT # 2.4 x10^3uL (1.8-7.7); NEUT % 45 % (31-73); PLATELET COUNT 223 x10^3/uL (140-400); WHITE BLOOD COUNT 5.3 x10^3/uL (4.0-11.0)
[2018-08-25] MEDS: POTASSIUM CL 20MEQ-0.45% NACL 1,000 ML IV SCH ×2 (17:30→18:09)
[2018-08-25 19:00] VITALS: BP 110/59
[2018-08-25 19:47] LABS: ALBUMIN 3.8 g/dL (3.4-5.0); ALBUMIN/GLOBULIN RATIO 1.3 (1.0-1.7); CALCIUM 9.3 mg/dL (8.5-10.1); GFR 80.8; POTASSIUM 4.3 mmol/L (3.5-5.1); TOTAL BILIRUBIN 0.7 mg/dL (0.2-1.0); TOTAL PROTEIN 6.7 g/dL (6.4-8.2)
[2018-08-25 22:39] VITALS: BP 124/80
[2018-08-26] MEDS: POTASSIUM CL 20MEQ-0.45% NACL 1,000 ML IV SCH (02:42)
[2018-08-26 03:00] VITALS: BP 101/57
[2018-08-26 07:00] VITALS: BP 102/47
--- NOTE | 2018-08-26 08:50 | PDOC ---
PROGRESS NOTES Chief Complaint Chief Complaint Abdominal pain, unclear etiology-acute abdominal series negative, blood work negative- Persistent emesis - resolved Recent bariatric surgery- Elke-en-Y bypass 15 months ago, [facility]-lost 188 pounds History of gout on indomethacin- Obesity/overweight BMI 31.1 Transaminitis - AST History of Present Illness History of Present Illness Mr. Worrell is a 43 yo morbidly obese patient w/ HUDSON s/p elke-en-y gastric bypass surgery 15 months ago s/p 185lb weight loss. Has h/o c. diff and diverticulitis. Acute abdominal series at [place]-(he was a transfer on admission)-was normal Blood work nearly normal. AST elevated Still with abdominal pain over the weekend.rajesh full liquids No BM since last week, has been on opioids. 08/19: EGD with no significant PUD per GI, no anastomotic lesions, still with pain on advancement of diet. I had a long discussion about planning to premedicate with tramadol prior to eating and to try to get a small bowel follow through series. 08/20: Still significant abdominal pain, some relief with oral meds prior to eating, taking less IV Dilaudid This was our third attempt to try to advance diet but every time he advances diet, he has severe epigastric abdominal pain. Consulted general surgery, d/w bariatric surgery. 08/21-:Started carafate with improvement. He still does have pain and is still having clear liquid diet. Tried to advance on 08/22 with severe pain, put back on clears. Clearly has concern for anastomotic ulcer by general surgery 08/23: Tolerated clear liquid diet again now. Will cont and try advance diet as tolerated tomorrow. 08/24 Tolerated clear liquid breakfast, 08/25 working toward d/c today or soon to see bariatric surgeon soon at [facility] HE WANTS TO TRY SOLID FOOD TODAY before going home 08/26 RAJESH SOFT DIET WELL TODAY, WANTS TO GO HOME TODAY, NO PAIN Plan: diet advance if ok with GI and surgery. Appreciate consult general surgery Tramadol for pain, try to get off IV meds Upper abd pain, nausea Lower abd pain GERD - on PPI H/o Elke-en-Y CRC screen, h/o polyps - thinks colonoscopy performed ~5 years ago Diverticular disease S/p cholecystectomy Trial of Miralax for ?constipation- no BM since Saturday. Acute abdominal series with moderate stool in colon. Cont PO PPI Vitals Vitals Vital Signs Date Time Temp Pulse Resp B/P (MAP) Pulse Ox O2 Delivery O2 Flow Rate FiO2 08/26/18 07:00 98.6 46 18 102/47 (65) 98 Room Air 98.6 08/26/18 03:00 2.0 Physical Exam General: Alert, Oriented X3, Cooperative, No acute distress Heart: Regular rate, Normal S1, Normal S2 Lungs: Clear Abdomen: Soft, No tenderness, No masses Extremities: No clubbing, No cyanosis, No edema Skin: No rashes, No breakdown Labs LABS Laboratory Tests Test 08/25/18 16:20 White Blood Count 5.3 x10^3/uL (4.0-11.0) Red Blood Count 5.00 x10^6/uL (4.30-5.70) Hemoglobin 14.6 g/dL (13.0-17.5) Hematocrit 43.3 % (39.0-53.0) Mean Corpuscular Volume 87 fL (79-100) Mean Corpuscular Hemoglobin 29 pg (25-35) Mean Corpuscular Hemoglobin Concent 34 g/dL (31-37) Red Cell Distribution Width 13.0 % (11.5-14.5) Platelet Count 223 x10^3/uL (140-400) Neutrophils (%) (Auto) 45 % (31-73) Lymphocytes (%) (Auto) 46 % (24-48) Monocytes (%) (Auto) 7 % (0-9) Eosinophils (%) (Auto) 1 % (0-3) Basophils (%) (Auto) 0 % (0-3) Neutrophils # (Auto) 2.4 x10^3uL (1.8-7.7) Lymphocytes # (Auto) 2.5 x10^3/uL (1.0-4.8) Monocytes # (Auto) 0.4 x10^3/uL (0.0-1.1) Eosinophils # (Auto) 0.1 x10^3/uL (0.0-0.7) Basophils # (Auto) 0.0 x10^3/uL (0.0-0.2) Sodium Level 143 mmol/L (136-145) Potassium Level 4.3 mmol/L (3.5-5.1) Chloride Level 106 mmol/L (98-107) Carbon Dioxide Level 29 mmol/L (21-32) Anion Gap 8 (6-14) Blood Urea Nitrogen 6 mg/dL (8-26) Creatinine 1.0 mg/dL (0.7-1.3) Estimated GFR (Cockcroft-Gault) 80.8 BUN/Creatinine Ratio 6 (6-20) Glucose Level 91 mg/dL (70-99) Calcium Level 9.3 mg/dL (8.5-10.1) Total Bilirubin 0.7 mg/dL (0.2-1.0) Aspartate Amino Transf (AST/SGOT) 20 U/L (15-37) Alanine Aminotransferase (ALT/SGPT) 33 U/L (16-63) Alkaline Phosphatase 67 U/L (46-116) Total Protein 6.7 g/dL (6.4-8.2) Albumin 3.8 g/dL (3.4-5.0) Albumin/Globulin Ratio 1.3 (1.0-1.7) Comment Review of Relevant I have reviewed the following items ismael (where applicable) has been applied. Labs Laboratory Tests Test 08/25/18 16:20 White Blood Count 5.3 x10^3/uL (4.0-11.0) Red Blood Count 5.00 x10^6/uL (4.30-5.70) Hemoglobin 14.6 g/dL (13.0-17.5) Hematocrit 43.3 % (39.0-53.0) Mean Corpuscular Volume 87 fL (79-100) Mean Corpuscular Hemoglobin 29 pg (25-35) Mean Corpuscular Hemoglobin Concent 34 g/dL (31-37) Red Cell Distribution Width 13.0 % (11.5-14.5) Platelet Count 223 x10^3/uL (140-400) Neutrophils (%) (Auto) 45 % (31-73) Lymphocytes (%) (Auto) 46 % (24-48) Monocytes (%) (Auto) 7 % (0-9) Eosinophils (%) (Auto) 1 % (0-3) Basophils (%) (Auto) 0 % (0-3) Neutrophils # (Auto) 2.4 x10^3uL (1.8-7.7) Lymphocytes # (Auto) 2.5 x10^3/uL (1.0-4.8) Monocytes # (Auto) 0.4 x10^3/uL (0.0-1.1) Eosinophils # (Auto) 0.1 x10^3/uL (0.0-0.7) Basophils # (Auto) 0.0 x10^3/uL (0.0-0.2) Sodium Level 143 mmol/L (136-145) Potassium Level 4.3 mmol/L (3.5-5.1) Chloride Level 106 mmol/L (98-107) Carbon Dioxide Level 29 mmol/L (21-32) Anion Gap 8 (6-14) Blood Urea Nitrogen 6 mg/dL (8-26) Creatinine 1.0 mg/dL (0.7-1.3) Estimated GFR (Cockcroft-Gault) 80.8 BUN/Creatinine Ratio 6 (6-20) Glucose Level 91 mg/dL (70-99) Calcium Level 9.3 mg/dL (8.5-10.1) Total Bilirubin 0.7 mg/dL (0.2-1.0) Aspartate Amino Transf (AST/SGOT) 20 U/L (15-37) Alanine Aminotransferase (ALT/SGPT) 33 U/L (16-63) Alkaline Phosphatase 67 U/L (46-116) Total Protein 6.7 g/dL (6.4-8.2) Albumin 3.8 g/dL (3.4-5.0) Albumin/Globulin Ratio 1.3 (1.0-1.7) Laboratory Tests Test 08/25/18 16:20 White Blood Count 5.3 x10^3/uL (4.0-11.0) Red Blood Count 5.00 x10^6/uL (4.30-5.70) Hemoglobin 14.6 g/dL (13.0-17.5) Hematocrit 43.3 % (39.0-53.0) Mean Corpuscular Volume 87 fL (79-100) Mean Corpuscular Hemoglobin 29 pg (25-35) Mean Corpuscular Hemoglobin Concent 34 g/dL (31-37) Red Cell Distribution Width 13.0 % (11.5-14.5) Platelet Count 223 x10^3/uL (140-400) Neutrophils (%) (Auto) 45 % (31-73) Lymphocytes (%) (Auto) 46 % (24-48) Monocytes (%) (Auto) 7 % (0-9) Eosinophils (%) (Auto) 1 % (0-3) Basophils (%) (Auto) 0 % (0-3) Neutrophils # (Auto) 2.4 x10^3uL (1.8-7.7) Lymphocytes # (Auto) 2.5 x10^3/uL (1.0-4.8) Monocytes # (Auto) 0.4 x10^3/uL (0.0-1.1) Eosinophils # (Auto) 0.1 x10^3/uL (0.0-0.7) Basophils # (Auto) 0.0 x10^3/uL (0.0-0.2) Sodium Level 143 mmol/L (136-145) Potassium Level 4.3 mmol/L (3.5-5.1) Chloride Level 106 mmol/L (98-107) Carbon Dioxide Level 29 mmol/L (21-32) Anion Gap 8 (6-14) Blood Urea Nitrogen 6 mg/dL (8-26) Creatinine 1.0 mg/dL (0.7-1.3) Estimated GFR (Cockcroft-Gault) 80.8 BUN/Creatinine Ratio 6 (6-20) Glucose Level 91 mg/dL (70-99) Calcium Level 9.3 mg/dL (8.5-10.1) Total Bilirubin 0.7 mg/dL (0.2-1.0) Aspartate Amino Transf (AST/SGOT) 20 U/L (15-37) Alanine Aminotransferase (ALT/SGPT) 33 U/L (16-63) Alkaline Phosphatase 67 U/L (46-116) Total Protein 6.7 g/dL (6.4-8.2) Albumin 3.8 g/dL (3.4-5.0) Albumin/Globulin Ratio 1.3 (1.0-1.7) Medications Current Medications Morphine Sulfate (Morphine Sulfate) 2 mg PRN Q2HR PRN IV MODERATE PAIN Last administered on 08/15/18at 00:36; Start 08/14/18 at 22:15; Stop 08/15/18 at 08:21 ; Status DC Morphine Sulfate (Morphine Sulfate) 4 mg PRN Q2HR PRN IV MODERATE PAIN Last administered on 08/16/18at 10:59; Start 08/14/18 at 22:15 Sodium Chloride 1,000 ml @ 75 mls/hr [id number] IV Last administered on at 03:24; Start 08/14/18 at 22:15; Stop 08/16/18 at 09:45; Status DC Famotidine (Pepcid Vial) 20 mg BID IVP Last administered on 08/15/18at 09:50; Start 08/14/18 at 22:30; Stop 08/15/18 at 10:53; Status DC Mesalamine (Pentasa) 250 mg [id number] PO Last administered on 08/15/18 09:55; Start 08/14/18 at 22:30; Stop 08/15/18 at 10:53; Status DC Ondansetron HCl (Zofran Odt) 4 mg PRN Q8HRS PRN PO NAUSEA/VOMITING 1ST CHOICE Last administered on 08/15/18at 05:39; Start 08/14/18 at 22:15; Stop 08/15/18 at 08:21; Status DC Metronidazole 100 ml @ 100 mls/hr Q8HRS IV Last administered on 08/17/18at 05: 35; Start 08/14/18 at 23:00; Stop 08/17/18 at 09:11; Status DC Morphine Sulfate (Morphine Sulfate) 6 mg PRN Q2HR PRN IV SEVERE PAIN Last administered on 08/15/18at 00:01; Start 08/15/18 at 00:00; Stop 08/15/18 at 08:21 ; Status DC Morphine Sulfate (Morphine Sulfate) 8 mg PRN Q2HR PRN IV SEVERE PAIN Last administered on 08/15/18 05:39; Start 08/15/18 at 00:00; Stop 08/15/18 at 09:53 ; Status DC Ondansetron HCl (Zofran Odt) 4 mg Q6HRS PRN PO NAUSEA/VOMITING 1ST CHOICE; Start 08/15/18 at 08:30 Oxycodone/ Acetaminophen (Percocet 10/325) 1 tab PRN Q4HRS PRN PO MODERATE TO SEVERE PAIN Last administered on 08/19/18at 12:27; Start 08/15/18 at 08:30; Stop 08/19/18 at 13:41; Status DC Pantoprazole Sodium (Protonix) 40 mg DAILYAC PO ; Start 08/16/18 at 07:30; Status Cancel Pantoprazole Sodium (PROTONIX VIAL for IV PUSH) 40 mg DAILYAC IVP ; Start at 07:30; Stop 08/16/18 at 07:30; Status DC Pantoprazole Sodium (PROTONIX VIAL for IV PUSH) 40 mg 1X ONCE IVP Last administered on 08/15/18at 09:54; Start 08/15/18 at 08:30; Stop 08/15/18 at 08:31 ; Status DC Multi-Ingredient Mouthwash/Gargle (Gi Cocktail) 20 ml 1X ONCE SWSW Last administered on 08/15/18at 11:01; Start 08/15/18 at 10:00; Stop 08/15/18 at 10:01 ; Status DC Multi-Ingredient Mouthwash/Gargle (Gi Cocktail) 20 ml PRN QID PRN PO CHEST PAIN Last administered on 08/18/18at 11:35; Start 08/15/18 at 10:00 Magnesium Hydroxide (Milk Of Magnesia) 2,400 mg PRN DAILY PRN PO CONSTIPATION ( 1st Choice); Start 08/15/18 at 10:00 Polyethylene Glycol (miraLAX PACKET) 17 gm PRN DAILY PRN PO CONSTIPATION (2nd Choice); Start 08/15/18 at 10:00 Pantoprazole Sodium (Protonix) 40 mg DAILYAC PO Last administered on 08/16/18at 06:02; Start 08/16/18 at 07:30; Stop 08/16/18 at 15:13; Status DC Hydromorphone HCl (Dilaudid) 1 mg 1X ONCE IV Last administered on 08/15/18at 18 :45; Start 08/15/18 at 18:45; Stop 08/15/18 at 18:46; Status DC Hydromorphone HCl (Dilaudid) 1 mg PRN Q4HRS PRN IV MODERATE PAIN, 2ND CHOICE Last administered on 08/22/18at 21:06; Start 08/16/18 at 08:30 Pantoprazole Sodium (PROTONIX VIAL for IV PUSH) 40 mg DAILYAC IVP Last administered on 08/19/18at 10:30; Start 08/17/18 at 07:30; Stop 08/20/18 at 11:16 ; Status DC Polyethylene Glycol (miraLAX PACKET) 17 gm DAILY PO Last administered on at 09:34; Start 08/16/18 at 17:00 Midazolam HCl (Versed) 2 mg PRN 1X PRN IV PRIOR TO PROCEDURE; Start 08/19/18 at 08:30; Stop 08/20/18 at 08:29; Status DC Fentanyl Citrate (Fentanyl 2ml Vial) 25 mcg PRN Q5MIN PRN IV X 2 DOSES FOR PAIN ; Start 08/19/18 at 08:30; Stop 08/20/18 at 08:29; Status DC Fentanyl Citrate (Fentanyl 2ml Vial) 50 mcg PRN Q5MIN PRN IV X 2 DOSES FOR PAIN ; Start 08/19/18 at 08:30; Stop 08/20/18 at 08:29; Status DC Ringer's Solution 1,000 ml @ 125 mls/hr Q8H IV Last administered on 08/19/18at 08:19; Start 08/19/18 at 08:16; Stop 08/19/18 at 11:08; Status DC Lidocaine HCl (Xylocaine-Mpf 1% 2ml Vial) 2 ml 1X PRN PRN ID IV START; Start at 08:30; Stop 08/20/18 at 08:29; Status DC Propofol 20 ml @ As Directed STK-MED ONCE IV ; Start 08/19/18 at 08:49; Stop at 08:50; Status DC Propofol 20 ml @ As Directed STK-MED ONCE IV ; Start 08/19/18 at 08:50; Stop at 08:51; Status DC Tramadol HCl (Ultram) 50 mg PRN Q6HRS PRN PO MILD PAIN Last administered on at 11:11; Start 08/19/18 at 13:45 Acetaminophen/ Hydrocodone Bitart (Lortab 5/325) 1 tab PRN Q6HRS PRN PO MODERATE - SEVERE PAIN Last administered on 08/23/18at 15:05; Start 08/19/18 at 13:45 Barium Sulfate (Liquid E-Z Paque) 710 ml 1X ONCE PO Last administered on at 09:30; Start 08/20/18 at 09:30; Stop 08/20/18 at 09:31; Status DC Pantoprazole Sodium (Protonix) 40 mg DAILYAC PO ; Start 08/21/18 at 07:30; Stop 08/21/18 at 07:30; Status DC Lansoprazole (Prevacid) 30 mg DAILYAC FT ; Start 08/21/18 at 07:30; Stop at 07:30; Status DC Dicyclomine HCl (Bentyl) 10 mg PRN QID PRN PO abd pain Last administered on at 21:59; Start 08/20/18 at 14:45 Sucralfate (Carafate) 1 gm BIDAC PEG ; Start 08/20/18 at 16:30; Stop 08/20/18 at 16:30; Status DC Lansoprazole (Prevacid) 30 mg DAILYAC PO ; Start 08/21/18 at 07:30; Stop at 07:30; Status DC Sucralfate (Carafate) 1 gm QIDACHS PO ; Start 08/20/18 at 16:30; Stop 08/20/18 at 16:30; Status DC Pantoprazole Sodium (PROTONIX VIAL for IV PUSH) 40 mg BIDAC IVP Last administered on 08/25/18at 18:04; Start 08/20/18 at 16:30 Sucralfate (Carafate) 1 gm QIDACHS PO Last administered on 08/25/18at 21:23; Start 08/20/18 at 16:30 Potassium Chloride/Sodium Chloride 1,000 ml @ 100 mls/hr Q10H IV Last administered on 08/26/18at 02:42; Start 08/20/18 at 17:30 Active Scripts Active Reported Protonix (Pantoprazole Sodium) 20 Mg Tablet. 1 Tab PO DAILY Vitals/I & O Vital Sign - Last 24 Hours 08/25/18 08/25/18 08/25/18 08/25/18 10:45 15:00 19:00 22:39 Temp 97.8 97.7 97.9 98.5 97.8 97.7 97.9 98.5 Pulse 50 52 50 46 Resp 18 18 18 18 B/P (MAP) 110/62 (78) 108/60 (76) 110/59 (76) 124/80 (95) Pulse Ox 97 98 98 98 O2 Delivery Room Air Room Air Room Air Room Air O2 Flow Rate 2.0 08/26/18 08/26/18 03:00 07:00 Temp 98.5 98.6 98.5 98.6 Pulse 46 46 Resp 18 18 B/P (MAP) 101/57 (72) 102/47 (65) Pulse Ox 95 98 O2 Delivery Room Air Room Air O2 Flow Rate 2.0 Intake and Output 08/25/18 08/25/18 08/26/18 15:00 23:00 07:00 Intake Total 600 ml 300 ml 1000 ml Balance 600 ml 300 ml 1000 ml EDITH JANSEN MD Aug 26, 2018 08:50
[2018-08-26] MEDS: POLYETHYLENE GLYCOL 3350 17 GM PACKET. PO SCH (09:12)
[2018-08-26] MEDS: PANTOPRAZOLE IV PUSH 40 MG VIAL. IVP SCH (09:12)
[2018-08-26] MEDS: SUCRALFATE 1 GM/10 ML ORAL.SUSP. PO SCH ×2 (09:13→12:21)
--- NOTE | 2018-08-26 09:23 | PDOC ---
GERRY SAUCEDO FEED WEIGHER 08/26/18 0923: SURGICAL PROGRESS NOTE Subjective tolerating diet feels well possible dc today Vital Signs Vital Signs Date Time Temp Pulse Resp B/P (MAP) Pulse Ox O2 Delivery O2 Flow Rate FiO2 08/26/18 07:00 98.6 46 18 102/47 (65) 98 Room Air 98.6 08/26/18 03:00 2.0 I&O Intake and Output 08/26/18 06:59 Intake Total 1900 ml Balance 1900 ml Intake Oral 900 ml IV Total 1000 ml # Voids 1 General: Alert, Oriented X3, Cooperative, No acute distress Abdomen: Soft, No tenderness Labs Laboratory Tests Test 08/25/18 16:20 White Blood Count 5.3 x10^3/uL (4.0-11.0) Red Blood Count 5.00 x10^6/uL (4.30-5.70) Hemoglobin 14.6 g/dL (13.0-17.5) Hematocrit 43.3 % (39.0-53.0) Mean Corpuscular Volume 87 fL (79-100) Mean Corpuscular Hemoglobin 29 pg (25-35) Mean Corpuscular Hemoglobin Concent 34 g/dL (31-37) Red Cell Distribution Width 13.0 % (11.5-14.5) Platelet Count 223 x10^3/uL (140-400) Neutrophils (%) (Auto) 45 % (31-73) Lymphocytes (%) (Auto) 46 % (24-48) Monocytes (%) (Auto) 7 % (0-9) Eosinophils (%) (Auto) 1 % (0-3) Basophils (%) (Auto) 0 % (0-3) Neutrophils # (Auto) 2.4 x10^3uL (1.8-7.7) Lymphocytes # (Auto) 2.5 x10^3/uL (1.0-4.8) Monocytes # (Auto) 0.4 x10^3/uL (0.0-1.1) Eosinophils # (Auto) 0.1 x10^3/uL (0.0-0.7) Basophils # (Auto) 0.0 x10^3/uL (0.0-0.2) Sodium Level 143 mmol/L (136-145) Potassium Level 4.3 mmol/L (3.5-5.1) Chloride Level 106 mmol/L (98-107) Carbon Dioxide Level 29 mmol/L (21-32) Anion Gap 8 (6-14) Blood Urea Nitrogen 6 mg/dL (8-26) Creatinine 1.0 mg/dL (0.7-1.3) Estimated GFR (Cockcroft-Gault) 80.8 BUN/Creatinine Ratio 6 (6-20) Glucose Level 91 mg/dL (70-99) Calcium Level 9.3 mg/dL (8.5-10.1) Total Bilirubin 0.7 mg/dL (0.2-1.0) Aspartate Amino Transf (AST/SGOT) 20 U/L (15-37) Alanine Aminotransferase (ALT/SGPT) 33 U/L (16-63) Alkaline Phosphatase 67 U/L (46-116) Total Protein 6.7 g/dL (6.4-8.2) Albumin 3.8 g/dL (3.4-5.0) Albumin/Globulin Ratio 1.3 (1.0-1.7) Laboratory Tests Test 08/25/18 16:20 White Blood Count 5.3 x10^3/uL (4.0-11.0) Red Blood Count 5.00 x10^6/uL (4.30-5.70) Hemoglobin 14.6 g/dL (13.0-17.5) Hematocrit 43.3 % (39.0-53.0) Mean Corpuscular Volume 87 fL (79-100) Mean Corpuscular Hemoglobin 29 pg (25-35) Mean Corpuscular Hemoglobin Concent 34 g/dL (31-37) Red Cell Distribution Width 13.0 % (11.5-14.5) Platelet Count 223 x10^3/uL (140-400) Neutrophils (%) (Auto) 45 % (31-73) Lymphocytes (%) (Auto) 46 % (24-48) Monocytes (%) (Auto) 7 % (0-9) Eosinophils (%) (Auto) 1 % (0-3) Basophils (%) (Auto) 0 % (0-3) Neutrophils # (Auto) 2.4 x10^3uL (1.8-7.7) Lymphocytes # (Auto) 2.5 x10^3/uL (1.0-4.8) Monocytes # (Auto) 0.4 x10^3/uL (0.0-1.1) Eosinophils # (Auto) 0.1 x10^3/uL (0.0-0.7) Basophils # (Auto) 0.0 x10^3/uL (0.0-0.2) Sodium Level 143 mmol/L (136-145) Potassium Level 4.3 mmol/L (3.5-5.1) Chloride Level 106 mmol/L (98-107) Carbon Dioxide Level 29 mmol/L (21-32) Anion Gap 8 (6-14) Blood Urea Nitrogen 6 mg/dL (8-26) Creatinine 1.0 mg/dL (0.7-1.3) Estimated GFR (Cockcroft-Gault) 80.8 BUN/Creatinine Ratio 6 (6-20) Glucose Level 91 mg/dL (70-99) Calcium Level 9.3 mg/dL (8.5-10.1) Total Bilirubin 0.7 mg/dL (0.2-1.0) Aspartate Amino Transf (AST/SGOT) 20 U/L (15-37) Alanine Aminotransferase (ALT/SGPT) 33 U/L (16-63) Alkaline Phosphatase 67 U/L (46-116) Total Protein 6.7 g/dL (6.4-8.2) Albumin 3.8 g/dL (3.4-5.0) Albumin/Globulin Ratio 1.3 (1.0-1.7) Assessment/Plan supportive measures ok to dc FU with BINU Sanchez MD 08/26/18 1505: SURGICAL PROGRESS NOTE Assessment/Plan Pt seen and examined. Agree with Ms. Saucedo's note Pt reports doing well, rajesh diet well abd soft, NTTP OK to d/c home. GERRY SAUCEDO APRN Aug 26, 2018 09:23 BINU DOWLING MD Aug 26, 2018 15:05
[2018-08-26 11:01] VITALS: BP 108/50
--- NOTE | 2018-08-26 14:21 | PDOC3 ---
Discharge Summary Date of Admission: Aug 15, 2018 Date of Discharge: Aug 26, 2018 Follow-Up: 3-5 days Admitting Diagnosis comment: DISCHARGE DX Chief Complaint Abdominal pain, ACUTE GASTRITIS -acute abdominal series negative, blood work negative- Persistent emesis - resolved Recent bariatric surgery- Elke-en-Y bypass 15 months ago, [facility]-lost 188 pounds History of gout on indomethacin- Obesity/overweight BMI 31.1 Transaminitis - AST History of Present Illness History of Present Illness Mr. Worrell is a 43 yo morbidly obese patient w/ HUDSON s/p elke-en-y gastric bypass surgery 15 months ago s/p 185lb weight loss. Has h/o c. diff and diverticulitis. Acute abdominal series at [place]-(he was a transfer on admission)-was normal Blood work nearly normal. AST elevated Still with abdominal pain over the weekend.rajesh full liquids No BM since last week, has been on opioids. 08/19: EGD with no significant PUD per GI, no anastomotic lesions, still with pain on advancement of diet. I had a long discussion about planning to premedicate with tramadol prior to eating and to try to get a small bowel follow through series. 08/20: Still significant abdominal pain, some relief with oral meds prior to eating, taking less IV Dilaudid This was our third attempt to try to advance diet but every time he advances diet, he has severe epigastric abdominal pain. Consulted general surgery, d/w bariatric surgery. 08/21-:Started carafate with improvement. He still does have pain and is still having clear liquid diet. Tried to advance on 08/22 with severe pain, put back on clears. Clearly has concern for anastomotic ulcer by general surgery 08/23: Tolerated clear liquid diet again now. advance diet as tolerated 08/24 Tolerated clear liquid breakfast, 08/25 working toward d/c today or soon to see bariatric surgeon soon at [facility] HE WANTS TO TRY SOLID FOOD TODAY before going home 08/26 RAJESH SOFT DIET WELL TODAY, WANTS TO GO HOME TODAY, NO PAIN Plan: diet advance if ok with GI and surgery. Appreciate consult general surgery Tramadol for pain, try to get off IV meds Upper abd pain, nausea Lower abd pain GERD - on PPI H/o Elke-en-Y CRC screen, h/o polyps - thinks colonoscopy performed ~5 years ago Diverticular disease S/p cholecystectomy Trial of Miralax Cont PO PPI Vitals Vitals Vital Signs Date Time Temp Pulse Resp B/P (MAP) Pulse Ox O2 Delivery O2 Flow Rate FiO2 08/26/18 07:00 98.6 46 18 102/47 (65) 98 Room Air 98.6 08/26/18 03:00 2.0 Physical Exam General: Alert, Oriented X3, Cooperative, No acute distress Heart: Regular rate, Normal S1, Normal S2 Lungs: Clear Abdomen: Soft, No tenderness, No masses Extremities: No clubbing, No cyanosis, No edema Skin: No rashes, No breakdown Brief Hospital Course Mr. Worrell is a 43 old [sex] who presented with [ACUTE EPIGASTRIC PAIN/ GASTRITIS ] CONDITION AT DISCHARGE: Improved Discharge Medications Current Medications Morphine Sulfate (Morphine Sulfate) 2 mg PRN Q2HR PRN IV MODERATE PAIN Last administered on 08/15/18at 00:36; Start 08/14/18 at 22:15; Stop 08/15/18 at 08:21 ; Status DC Morphine Sulfate (Morphine Sulfate) 4 mg PRN Q2HR PRN IV MODERATE PAIN Last administered on 08/16/18at 10:59; Start 08/14/18 at 22:15 Sodium Chloride 1,000 ml @ 75 mls/hr [id number] IV Last administered on at 03:24; Start 08/14/18 at 22:15; Stop 08/16/18 at 09:45; Status DC Famotidine (Pepcid Vial) 20 mg BID IVP Last administered on 08/15/18at 09:50; Start 08/14/18 at 22:30; Stop 08/15/18 at 10:53; Status DC Mesalamine (Pentasa) 250 mg [id number] PO Last administered on 08/15/18at 09:55; Start 08/14/18 at 22:30; Stop 08/15/18 at 10:53; Status DC Ondansetron HCl (Zofran Odt) 4 mg PRN Q8HRS PRN PO NAUSEA/VOMITING 1ST CHOICE Last administered on 08/15/18at 05:39; Start 08/14/18 at 22:15; Stop 08/15/18 at 08:21; Status DC Metronidazole 100 ml @ 100 mls/hr Q8HRS IV Last administered on 08/17/18at 05: 35; Start 08/14/18 at 23:00; Stop 08/17/18 at 09:11; Status DC Morphine Sulfate (Morphine Sulfate) 6 mg PRN Q2HR PRN IV SEVERE PAIN Last administered on 08/15/18at 00:01; Start 08/15/18 at 00:00; Stop 08/15/18 at 08:21 ; Status DC Morphine Sulfate (Morphine Sulfate) 8 mg PRN Q2HR PRN IV SEVERE PAIN Last administered on 08/15/18at 05:39; Start 08/15/18 at 00:00; Stop 08/15/18 at 09:53 ; Status DC Ondansetron HCl (Zofran Odt) 4 mg Q6HRS PRN PO NAUSEA/VOMITING 1ST CHOICE; Start 08/15/18 at 08:30 Oxycodone/ Acetaminophen (Percocet 10/325) 1 tab PRN Q4HRS PRN PO MODERATE TO SEVERE PAIN Last administered on 08/19/18at 12:27; Start 08/15/18 at 08:30; Stop 08/19/18 at 13:41; Status DC Pantoprazole Sodium (Protonix) 40 mg DAILYAC PO ; Start 08/16/18 at 07:30; Status Cancel Pantoprazole Sodium (PROTONIX VIAL for IV PUSH) 40 mg DAILYAC IVP ; Start at 07:30; Stop 08/16/18 at 07:30; Status DC Pantoprazole Sodium (PROTONIX VIAL for IV PUSH) 40 mg 1X ONCE IVP Last administered on 08/15/18at 09:54; Start 08/15/18 at 08:30; Stop 08/15/18 at 08:31 ; Status DC Multi-Ingredient Mouthwash/Gargle (Gi Cocktail) 20 ml 1X ONCE SWSW Last administered on 08/15/18at 11:01; Start 08/15/18 at 10:00; Stop 08/15/18 at 10:01 ; Status DC Multi-Ingredient Mouthwash/Gargle (Gi Cocktail) 20 ml PRN QID PRN PO CHEST PAIN Last administered on 08/18/18at 11:35; Start 08/15/18 at 10:00 Magnesium Hydroxide (Milk Of Magnesia) 2,400 mg PRN DAILY PRN PO CONSTIPATION ( 1st Choice); Start 08/15/18 at 10:00 Polyethylene Glycol (miraLAX PACKET) 17 gm PRN DAILY PRN PO CONSTIPATION (2nd Choice); Start 08/15/18 at 10:00 Pantoprazole Sodium (Protonix) 40 mg DAILYAC PO Last administered on 08/16/18at 06:02; Start 08/16/18 at 07:30; Stop 08/16/18 at 15:13; Status DC Hydromorphone HCl (Dilaudid) 1 mg 1X ONCE IV Last administered on 08/15/18at 18 :45; Start 08/15/18 at 18:45; Stop 08/15/18 at 18:46; Status DC Hydromorphone HCl (Dilaudid) 1 mg PRN Q4HRS PRN IV MODERATE PAIN, 2ND CHOICE Last administered on 08/22/18at 21:06; Start 08/16/18 at 08:30 Pantoprazole Sodium (PROTONIX VIAL for IV PUSH) 40 mg DAILYAC IVP Last administered on 08/19/18at 10:30; Start 08/17/18 at 07:30; Stop 08/20/18 at 11:16 ; Status DC Polyethylene Glycol (miraLAX PACKET) 17 gm DAILY PO Last administered on at 09:12; Start 08/16/18 at 17:00 Midazolam HCl (Versed) 2 mg PRN 1X PRN IV PRIOR TO PROCEDURE; Start 08/19/18 at 08:30; Stop 08/20/18 at 08:29; Status DC Fentanyl Citrate (Fentanyl 2ml Vial) 25 mcg PRN Q5MIN PRN IV X 2 DOSES FOR PAIN ; Start 08/19/18 at 08:30; Stop 08/20/18 at 08:29; Status DC Fentanyl Citrate (Fentanyl 2ml Vial) 50 mcg PRN Q5MIN PRN IV X 2 DOSES FOR PAIN ; Start 08/19/18 at 08:30; Stop 08/20/18 at 08:29; Status DC Ringer's Solution 1,000 ml @ 125 mls/hr Q8H IV Last administered on 08/19/18at 08:19; Start 08/19/18 at 08:16; Stop 08/19/18 at 11:08; Status DC Lidocaine HCl (Xylocaine-Mpf 1% 2ml Vial) 2 ml 1X PRN PRN ID IV START; Start at 08:30; Stop 08/20/18 at 08:29; Status DC Propofol 20 ml @ As Directed STK-MED ONCE IV ; Start 08/19/18 at 08:49; Stop at 08:50; Status DC Propofol 20 ml @ As Directed STK-MED ONCE IV ; Start 08/19/18 at 08:50; Stop at 08:51; Status DC Tramadol HCl (Ultram) 50 mg PRN Q6HRS PRN PO MILD PAIN Last administered on at 11:11; Start 08/19/18 at 13:45 Acetaminophen/ Hydrocodone Bitart (Lortab 5/325) 1 tab PRN Q6HRS PRN PO MODERATE - SEVERE PAIN Last administered on 08/23/18at 15:05; Start 08/19/18 at 13:45 Barium Sulfate (Liquid E-Z Paque) 710 ml 1X ONCE PO Last administered on at 09:30; Start 08/20/18 at 09:30; Stop 08/20/18 at 09:31; Status DC Pantoprazole Sodium (Protonix) 40 mg DAILYAC PO ; Start 08/21/18 at 07:30; Stop 08/21/18 at 07:30; Status DC Lansoprazole (Prevacid) 30 mg DAILYAC FT ; Start 08/21/18 at 07:30; Stop at 07:30; Status DC Dicyclomine HCl (Bentyl) 10 mg PRN QID PRN PO abd pain Last administered on at 21:59; Start 08/20/18 at 14:45 Sucralfate (Carafate) 1 gm BIDAC PEG ; Start 08/20/18 at 16:30; Stop 08/20/18 at 16:30; Status DC Lansoprazole (Prevacid) 30 mg DAILYAC PO ; Start 08/21/18 at 07:30; Stop at 07:30; Status DC Sucralfate (Carafate) 1 gm QIDACHS PO ; Start 08/20/18 at 16:30; Stop 08/20/18 at 16:30; Status DC Pantoprazole Sodium (PROTONIX VIAL for IV PUSH) 40 mg BIDAC IVP Last administered on 08/26/18at 09:12; Start 08/20/18 at 16:30 Sucralfate (Carafate) 1 gm QIDACHS PO Last administered on 08/26/18at 12:21; Start 08/20/18 at 16:30 Potassium Chloride/Sodium Chloride 1,000 ml @ 100 mls/hr Q10H IV Last administered on 08/26/18at 02:42; Start 08/20/18 at 17:30 Active Scripts Active Reported Protonix (Pantoprazole Sodium) 20 Mg Tablet.dr 1 Tab PO DAILY Vital Signs Vital Signs Date Time Temp Pulse Resp B/P (MAP) Pulse Ox O2 Delivery O2 Flow Rate FiO2 08/26/18 11:01 98.2 50 18 108/50 (69) 98 Room Air 98.2 08/26/18 03:00 2.0 Labs Laboratory Tests Test 08/25/18 16:20 White Blood Count 5.3 x10^3/uL (4.0-11.0) Red Blood Count 5.00 x10^6/uL (4.30-5.70) Hemoglobin 14.6 g/dL (13.0-17.5) Hematocrit 43.3 % (39.0-53.0) Mean Corpuscular Volume 87 fL (79-100) Mean Corpuscular Hemoglobin 29 pg (25-35) Mean Corpuscular Hemoglobin Concent 34 g/dL (31-37) Red Cell Distribution Width 13.0 % (11.5-14.5) Platelet Count 223 x10^3/uL (140-400) Neutrophils (%) (Auto) 45 % (31-73) Lymphocytes (%) (Auto) 46 % (24-48) Monocytes (%) (Auto) 7 % (0-9) Eosinophils (%) (Auto) 1 % (0-3) Basophils (%) (Auto) 0 % (0-3) Neutrophils # (Auto) 2.4 x10^3uL (1.8-7.7) Lymphocytes # (Auto) 2.5 x10^3/uL (1.0-4.8) Monocytes # (Auto) 0.4 x10^3/uL (0.0-1.1) Eosinophils # (Auto) 0.1 x10^3/uL (0.0-0.7) Basophils # (Auto) 0.0 x10^3/uL (0.0-0.2) Sodium Level 143 mmol/L (136-145) Potassium Level 4.3 mmol/L (3.5-5.1) Chloride Level 106 mmol/L (98-107) Carbon Dioxide Level 29 mmol/L (21-32) Anion Gap 8 (6-14) Blood Urea Nitrogen 6 mg/dL (8-26) Creatinine 1.0 mg/dL (0.7-1.3) Estimated GFR (Cockcroft-Gault) 80.8 BUN/Creatinine Ratio 6 (6-20) Glucose Level 91 mg/dL (70-99) Calcium Level 9.3 mg/dL (8.5-10.1) Total Bilirubin 0.7 mg/dL (0.2-1.0) Aspartate Amino Transf (AST/SGOT) 20 U/L (15-37) Alanine Aminotransferase (ALT/SGPT) 33 U/L (16-63) Alkaline Phosphatase 67 U/L (46-116) Total Protein 6.7 g/dL (6.4-8.2) Albumin 3.8 g/dL (3.4-5.0) Albumin/Globulin Ratio 1.3 (1.0-1.7) Laboratory Tests Test 08/25/18 16:20 White Blood Count 5.3 x10^3/uL (4.0-11.0) Red Blood Count 5.00 x10^6/uL (4.30-5.70) Hemoglobin 14.6 g/dL (13.0-17.5) Hematocrit 43.3 % (39.0-53.0) Mean Corpuscular Volume 87 fL (79-100) Mean Corpuscular Hemoglobin 29 pg (25-35) Mean Corpuscular Hemoglobin Concent 34 g/dL (31-37) Red Cell Distribution Width 13.0 % (11.5-14.5) Platelet Count 223 x10^3/uL (140-400) Neutrophils (%) (Auto) 45 % (31-73) Lymphocytes (%) (Auto) 46 % (24-48) Monocytes (%) (Auto) 7 % (0-9) Eosinophils (%) (Auto) 1 % (0-3) Basophils (%) (Auto) 0 % (0-3) Neutrophils # (Auto) 2.4 x10^3uL (1.8-7.7) Lymphocytes # (Auto) 2.5 x10^3/uL (1.0-4.8) Monocytes # (Auto) 0.4 x10^3/uL (0.0-1.1) Eosinophils # (Auto) 0.1 x10^3/uL (0.0-0.7) Basophils # (Auto) 0.0 x10^3/uL (0.0-0.2) Sodium Level 143 mmol/L (136-145) Potassium Level 4.3 mmol/L (3.5-5.1) Chloride Level 106 mmol/L (98-107) Carbon Dioxide Level 29 mmol/L (21-32) Anion Gap 8 (6-14) Blood Urea Nitrogen 6 mg/dL (8-26) Creatinine 1.0 mg/dL (0.7-1.3) Estimated GFR (Cockcroft-Gault) 80.8 BUN/Creatinine Ratio 6 (6-20) Glucose Level 91 mg/dL (70-99) Calcium Level 9.3 mg/dL (8.5-10.1) Total Bilirubin 0.7 mg/dL (0.2-1.0) Aspartate Amino Transf (AST/SGOT) 20 U/L (15-37) Alanine Aminotransferase (ALT/SGPT) 33 U/L (16-63) Alkaline Phosphatase 67 U/L (46-116) Total Protein 6.7 g/dL (6.4-8.2) Albumin 3.8 g/dL (3.4-5.0) Albumin/Globulin Ratio 1.3 (1.0-1.7) Allergies Allergies Coded Allergies Type Severity Reaction Last Updated Verified naproxen Allergy Intermediate 08/19/18 Yes Disposition/Orders: D/C to Home Patient Instructions D/C PLANNING 36 MIN EDITH JANSEN MD Aug 26, 2018 14:21
[2018-08-26] MEDS ORDERED: SUCR1ORA5 PO (14:27)
[2018-08-26] MEDS ORDERED: ONDA4TAB12 PO (14:27)
[2018-08-26] MEDS ORDERED: POLY17PO28 PO (14:27)
[2018-08-26] MEDS ORDERED: MAGN400O7 PO (14:27)
[2018-08-26] MEDS ORDERED: DICY10CA3 PO (14:27)
--- NOTE | 2018-08-26 14:31 | DISCH ---
DISCHARGE INSTRUCTIONS Condition on Discharge Condition on Discharge: Stable Activity After Discharge Activity Instructions for Disc: Activity as tolerated Lifting Instructions after Dis: No heavy lifting, No pulling or pushing Driving Instructions after Dis: Do not drive today Weight Bearing Status after Di: Full weight bearing Diet after Discharge Diet after Discharge: Regular Diet Texture: Regular Liquid Texture: Thin Liquid Swallowing Supervision: None needed Contacting the DRNathalie after DC Call your doctor for: If your condition worsens EDITH JANSEN MD Aug 26, 2018 14:31
[2018-08-26 15:00] VITALS: BP 113/54
--- NOTE | 2018-08-26 16:19 | NUR ---
DISCHARGE INSTRUCTIONS GIVEN QUESTIONS AND CONCERNS ANSWERED, PATIENT VERBALIZED UNDERSTANDING OF DISCHARGE INFORMATION INCLUDING TAKING ALL MEDICATIONS INSTRUCTED AND FOLLOWING UP WITH HIS PRIMARY PROVIDER IN 1-2 WEEKS.
--- NOTE | 2018-08-26 16:44 | NUR ---
patient leaves the unit alongside his per w/c, emotional support given, follow up appointments encouraged, prescriptions for carafate and protonix called to his pharmacy per patient and doctor request.
== END 2018-08-26 16:44 | disposition home or self-care (01) | DRG 392 ==
LOC: 5 SOUTH 21:19
PROVIDERS: ADMIT Internal Medicine; ATTEND Internal Medicine
PROC: 0DB68ZX Excision of Stomach, Via Natural or Artificial Opening Endoscopic, Diagnostic (ICD-10-PCS; 2018-08-19)
PROC: 0DBA8ZX Excision of Jejunum, Via Natural or Artificial Opening Endoscopic, Diagnostic (ICD-10-PCS; 2018-08-19)
PROC: 0DB68ZZ Excision of Stomach, Via Natural or Artificial Opening Endoscopic (ICD-10-PCS; principal; 2018-08-19 09:00)
DX: K29.00 Acute gastritis without bleeding (principal); K21.9 Gastro-esophageal reflux disease without esophagitis; K57.90 Diverticulosis of intestine, part unspecified, without perforation or abscess without bleeding; I10 Essential (primary) hypertension; G47.33 Obstructive sleep apnea (adult) (pediatric); M10.9 Gout, unspecified; F32.9 Major depressive disorder, single episode, unspecified; K31.7 Polyp of stomach and duodenum; N20.0 Calculus of kidney; K76.0 Fatty (change of) liver, not elsewhere classified; R79.89 Other specified abnormal findings of blood chemistry; E66.01 Morbid (severe) obesity due to excess calories; Z68.31 Body mass index [BMI] 31.0-31.9, adult; Z90.49 Acquired absence of other specified parts of digestive tract; Z98.84 Bariatric surgery status; Z87.891 Personal history of nicotine dependence; Z71.41 Alcohol abuse counseling and surveillance of alcoholic; Z88.6 Allergy status to analgesic agent; K28.9 Gastrojejunal ulcer, unspecified as acute or chronic, without hemorrhage or perforation
CPT/HCPCS: 36415; 43239; 74022; 74245; 80048; 80053; 83690; 85025; 85651; 88305; 88342; C9113; J1170; J2270; J2704; J3490; J7030; J7120; Q0162

== ENCOUNTER 2021-09-26 15:35 | Observation (INO) | payer BC ==
[~2021-09-26] VITALS: Ht 182.9 cm; Wt 109.9 kg
[~2021-09-26 15:35] MED LIST changes: +CALC-178 PO; +DICY10CA3 PO; +DOCU-148 PO; +INDO50CA15 PO; -INDO50CA5 PO; +LUBI24CA7 PO; +MAGN400O7 PO; +MULT-53 PO; +ONDA4TAB12 PO; +PANT20TA2 PO; +POLY17PO52 PO; +SUCR1ORA5 PO
[2021-09-26] MEDS ORDERED: NITROGLYCERIN SUBLINGUAL 0.4 MG BOTTLE OF 25. SL PRN ×2 (16:00→20:30)
[2021-09-26] MEDS ORDERED: ASPIRIN 325 MG TABLET PO ONE (16:00)
[2021-09-26 16:11] LABS: BASO # 0.1 x10^3/uL (0.0-0.2); BASO % 1 % (0-3); EOS % 0 % (0-3); HEMATOCRIT 47.2 % (39.0-53.0); HEMOGLOBIN 15.5 g/dL (13.0-17.5); LYMPH # 1.8 x10^3/uL (1.0-4.8); LYMPH % 24 % (24-48); MEAN CORPUSCULAR HEMOGLOBIN 29 pg (25-35); MEAN CORPUSCULAR HGB CONC 33 g/dL (31-37); MEAN CORPUSCULAR VOLUME 88 fL (79-100); MONO # 0.6 x10^3/uL (0.0-1.1); MONO % 8 % (0-9); NEUT # 5.1 x10^3/uL (1.8-7.7); NEUT % 67 % (31-73); PLATELET COUNT 228 x10^3/uL (140-400); RED BLOOD COUNT 5.35 x10^6/uL (4.30-5.70); RED CELL DISTRIBUTION WIDTH 13.6 % (11.5-14.5); WHITE BLOOD COUNT 7.7 x10^3/uL (4.0-11.0)
[2021-09-26] MEDS: MORPHINE SULFATE 4 MG/ML INJ. IV/SQ PRN ×3 (16:15→21:00)
--- NOTE | 2021-09-26 16:41 | RAD ---
XR CHEST 1V 09/26/2021 3:54 PM INDICATION: Chest pain COMPARISON: None available TECHNIQUE: Portable frontal view of the chest is provided. FINDINGS: The cardiomediastinal silhouette is within normal limits. Lungs are clear. There are no significant pleural effusions. There is no pulmonary vascular congestion. No pneumothora x. No suspicious osseous abnormality. IMPRESSION: There is no acute cardiopulmonary process. Electronically signed by: Salma Ocasio MD (09/26/2021 4:39 PM) [facility]
[2021-09-26 16:42] LABS: CALCIUM 9.5 mg/dL (8.5-10.1); CREATININE 1.3 mg/dL (0.7-1.3); GFR 58.9; POTASSIUM 3.8 mmol/L (3.5-5.1)
[2021-09-26 16:46] LABS: ALBUMIN 4.5 g/dL (3.4-5.0); ALBUMIN/GLOBULIN RATIO 1.5 (1.0-1.7); MAGNESIUM 2.2 mg/dL (1.8-2.4); TOTAL BILIRUBIN 0.5 mg/dL (0.2-1.0); TOTAL PROTEIN 7.5 g/dL (6.4-8.2)
--- NOTE | 2021-09-26 17:26 | EKG ---
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
--- NOTE | 2021-09-26 17:26 | EKG ---
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
[2021-09-26 18:28] LABS: BARBITURATES NEG (NEG); BENZODIAZEPINES NEG (NEG); CANNABINOIDS NEG (NEG); COCAINE NEG (NEG); METHADONE NEG (NEG); OPIATES POS (NEG); PHENCYCLIDINE NEG (NEG)
[2021-09-26 18:35] LABS: BACTERIA,URINE 0 /HPF (0-FEW)
[2021-09-26 18:39] LABS: AMPHETAMINE/METHAMPHETAMINE NEG (NEG)
--- NOTE | 2021-09-26 20:04 | PHYS DOC ---
Past Medical History Past Medical History: GERD Additional Past Medical Histor: For PMHx pt. answered,"Other things went away with the surgery." Past Surgical History: Cholecystectomy Additional Past Surgical Histo: shoulder sx, knee sx, Gastric bypass. Smoking Status: Light Tobacco Smoker Additional Information: Pt uses chewing tobacco daily. Alcohol Use: Occasionally Drug Use: None General Adult EDM: Chief Complaint: CHEST PAIN HPI: HPI: Patient is a 46 year old male with previous history of gastric bypass surgery that he states cleared his other medical problems that he took "heart medicines for" he will not name the medical problems, anxiety, acid reflux, presenting to the ED today complaining of chest pain rated at 6 out of 10 described as sharp and intermittent, symptoms have been going on since 11 AM this morning. He states he was at work at and the pain got worse. Denies anything specifically exacerbating or relieving the pain. Review of Systems: Review of Systems: Constitutional: Denies fever or chills. [] Eyes: Denies change in visual acuity. [] HENT: Denies nasal congestion or sore throat. [] Respiratory: Denies cough or shortness of breath. [] Cardiovascular: Reports chest pain GI: Denies abdominal pain, nausea, vomiting, bloody stools or diarrhea. [] : Denies dysuria. [] Musculoskeletal: Denies back pain or joint pain. [] Integument: Denies rash. [] Neurologic: Denies headache, focal weakness or sensory changes. [] Psychiatric: Denies depression or anxiety. [] Heart Score: C/O Chest Pain: Yes HEART Score for Chest Pain: HEART Score for Chest Pain Response (Comments) Value History Slighlty/Non-Suspicious 0 ECG Normal 0 Age >45 - < 65 1 Risk Factors No Risk Factors 0 Troponin < Normal Limit 0 Total 1 Risk Factors: Risk Factors: DM, Current or recent (<one month) smoker, HTN, HLP, family history of CAD, obesity. Risk Scores: Score 0 - 3: 2.5% MACE over next 6 weeks - Discharge Home Score 4 - 6: 20.3% MACE over next 6 weeks - Admit for Clinical Observation Score 7 - 10: 72.7% MACE over next 6 weeks - Early Invasive Strategies Current Medications: Current Medications Medications (Trade) Dose Ordered Sig/Bushra Start Time Stop Time Status Last Admin Dose Admin Aspirin (Valdemar Aspirin) 325 mg 1X ONCE 09/26/21 16:00 09/26/21 16:01 DC 09/26/21 16:00 325 MG Lorazepam (Ativan Inj) 1 mg 1X ONCE 09/26/21 16:15 09/26/21 16:16 DC 09/26/21 16:15 1 MG Morphine Sulfate (Morphine Sulfate) 4 mg PRN Q15MIN PRN 09/26/21 16:00 09/27/21 15:59 09/26/21 16:18 4 MG Nitroglycerin (Nitrostat) 0.4 mg PRN Q5MIN PRN 09/26/21 16:00 09/27/21 15:59 Allergies: Allergies: Allergies Coded Allergies Type Severity Reaction Last Updated Verified naproxen Allergy Intermediate 08/19/18 Yes Physical Exam: PE: Constitutional: Well developed, well nourished, no acute distress, non-toxic appearance. [] HENT: Normocephalic, atraumatic, bilateral external ears normal, oropharynx moist, no oral exudates, nose normal. [] Eyes: PERRLA, EOMI, conjunctiva normal, no discharge. [] Neck: Normal range of motion, no tenderness, supple, no stridor. [] Cardiovascular:Heart rate regular rhythm, no murmur [] Lungs & Thorax: Bilateral breath sounds clear to auscultation [] Abdomen: Bowel sounds normal, soft, no tenderness, no masses, no pulsatile mass es. [] Skin: Warm, dry, no erythema, no rash. [] Back: No tenderness, no CVA tenderness. [] Extremities: No tenderness, no cyanosis, no clubbing, ROM intact, no edema. [] Neurologic: Alert and oriented X 3, normal motor function, normal sensory function, no focal deficits noted. [] Psychologic: Patient is very anxious. Current Patient Data: Labs: Laboratory Tests Test 09/26/21 16:03 09/26/21 17:59 09/26/21 18:10 White Blood Count 7.7 x10^3/uL (4.0-11.0) Red Blood Count 5.35 x10^6/uL (4.30-5.70) Hemoglobin 15.5 g/dL (13.0-17.5) Hematocrit 47.2 % (39.0-53.0) Mean Corpuscular Volume 88 fL (79-100) Mean Corpuscular Hemoglobin 29 pg (25-35) Mean Corpuscular Hemoglobin Concent 33 g/dL (31-37) Red Cell Distribution Width 13.6 % (11.5-14.5) Platelet Count 228 x10^3/uL (140-400) Neutrophils (%) (Auto) 67 % (31-73) Lymphocytes (%) (Auto) 24 % (24-48) Monocytes (%) (Auto) 8 % (0-9) Eosinophils (%) (Auto) 0 % (0-3) Basophils (%) (Auto) 1 % (0-3) Neutrophils # (Auto) 5.1 x10^3/uL (1.8-7.7) Lymphocytes # (Auto) 1.8 x10^3/uL (1.0-4.8) Monocytes # (Auto) 0.6 x10^3/uL (0.0-1.1) Eosinophils # (Auto) 0.0 x10^3/uL (0.0-0.7) Basophils # (Auto) 0.1 x10^3/uL (0.0-0.2) Sodium Level 141 mmol/L (136-145) Potassium Level 3.8 mmol/L (3.5-5.1) Chloride Level 101 mmol/L (98-107) Carbon Dioxide Level 29 mmol/L (21-32) Anion Gap 11 (6-14) Blood Urea Nitrogen 18 mg/dL (8-26) Creatinine 1.3 mg/dL (0.7-1.3) Estimated GFR (Cockcroft-Gault) 58.9 BUN/Creatinine Ratio 14 (6-20) Glucose Level 102 mg/dL (70-99) H Calcium Level 9.5 mg/dL (8.5-10.1) Magnesium Level 2.2 mg/dL (1.8-2.4) Total Bilirubin 0.5 mg/dL (0.2-1.0) Aspartate Amino Transferase (AST) 26 U/L (15-37) Alanine Aminotransferase (ALT) 26 U/L (16-63) Alkaline Phosphatase 62 U/L (46-116) Troponin I High Sensitivity 7 ng/L (4-75) 6 ng/L (4-75) JX-Ghy-J-Type Natriuretic Peptide 166 pg/mL (0-124) H Total Protein 7.5 g/dL (6.4-8.2) Albumin 4.5 g/dL (3.4-5.0) Albumin/Globulin Ratio 1.5 (1.0-1.7) Thyroid Stimulating Hormone (TSH) 1.452 uIU/mL (0.358-3.74) Urine Collection Type Unknown Urine Color (Auto) Yellow Urine Turbidity Clear Urine pH (Auto) 6.0 (<5.0-8.0) Urine Specific [place] 1.020 (1.000-1.030) Urine Protein (Auto) Negative mg/dL (Negative) Urine Glucose (Auto)(UA) Negative mg/dL (Negative) Urine Ketones (Auto) 10 mg/dL (Negative) Urine Blood (Auto) Negative (Negative) Urine Nitrite Negative (Negative) Urine Bilirubin (Auto) Negative (Negative) Urine Urobilinogen (Auto) Normal mg/dL (Normal) Urine Leukocyte Esterase (Auto) Negative (Negative) Urine RBC 1-2 /HPF (0-2) Urine WBC 1-4 /HPF (0-4) Urine Squamous Epithelial Cells Few /LPF Urine Bacteria 0 /HPF (0-FEW) Urine Opiates Screen Pos (NEG) Urine Methadone Screen Neg (NEG) Urine Barbiturates Neg (NEG) Urine Phencyclidine Screen Neg (NEG) Urine Amphetamine/Methamphetamine Neg (NEG) Urine Benzodiazepines Screen Neg (NEG) Urine Cocaine Screen Neg (NEG) Urine Cannabinoids Screen Neg (NEG) Urine Ethyl Alcohol Neg (NEG) Laboratory Tests 09/26/21 16:03 Laboratory Tests 09/26/21 16:03 Vital Signs: Vital Signs Date Time Temp Pulse Resp B/P (MAP) Pulse Ox O2 Delivery O2 Flow Rate FiO2 09/26/21 17:40 92 18 142/95 (111) 100 Room Air 09/26/21 15:38 98.0 98.0 EKG: EK interpreted by Dr. Shay sinus rhythm heart rate 92 no STEMI [address] Shay sinus tachycardia heart rate 103 no STEMI Radiology/Procedures: Radiology/Procedures: []PROCEDURE: PORTABLE CHEST 1V XR CHEST 1V 09/26/2021 3:54 PM INDICATION: Chest pain COMPARISON: None available TECHNIQUE: Portable frontal view of the chest is provided. FINDINGS: The cardiomediastinal silhouette is within normal limits. Lungs are clear. There are no significant pleural effusions. There is no pulmonary vascular congestion. No pneumothorax. No suspicious osseous abnormality. IMPRESSION: There is no acute cardiopulmonary process. Electronically signed by: Abebe Ceballos MD (09/26/2021 4:39 PM) [facility] DICTATED and SIGNED BY: ABEBE CEBALLOS MD DATE: 09/26/21 0978 Course & Med Decision Making: Course & Med Decision Making Pertinent Labs and Imaging studies reviewed. (See chart for details) This a 46-year-old male patient presented to the ED today complaining of chest pain that began 11 AM this morning. EKG is negative, 2 sets of high-sensitivity troponins 3 hours apart were done which were negative. CBC CMP with no acute findings, chest x-ray is negative. Patient had an anxiety/panic attack in the ED, he was given Ativan, he calmed down. His blood pressure improved from 150/103-115/84 Results were discussed with patient and . Both of them are requesting patient to be admitted. They are afraid patient will have pain when he goes home. Spoke to Dr. Corrales who accepted patient for admission. Routine consult placed for cardiology Laury Disclaimer: Laury Disclaimer: This electronic medical record was generated, in whole or in part, using a voice recognition dictation system. Departure Departure Impression: Primary Impression: Chest pain Qualified Codes: R07.9 - Chest pain, unspecified Additional Impression: Anxiety Disposition: ADMITTED INPATIENT Condition: STABLE Referrals: COLLEEN PENA MD (PCP) JACQUELIN KAISER APRN Sep 26, 2021 20:04
[2021-09-26] MEDS ORDERED: ACETAMINOPHEN 325 MG TABLET. PO PRN ×2 (20:30→22:45)
[2021-09-26] MEDS ORDERED: ONDANSETRON PF 4 MG/2 ML VIAL. IVP PRN ×2 (20:30→22:45)
[2021-09-26] MEDS ORDERED: cloNIDine HCL 0.1 MG TABLET PO PRN (20:30)
[2021-09-26 22:05] VITALS: BP 140/105
[2021-09-26] MEDS ORDERED: MORPHINE SULFATE 2 MG/ML INJ. IV PRN (22:45)
[2021-09-26] MEDS ORDERED: ZOLPIDEM 5 MG TABLET. PO PRN (22:45)
[2021-09-26] MEDS ORDERED: CALCIUM CARBONATE 500 MG TAB.CHEW PO PRN (22:45)
[2021-09-26] MEDS ORDERED: MAG HYDROX/ALUMINUM HYD/SIMETH 30 ML ORAL.SUSP PO PRN (22:45)
[2021-09-27] MEDS: MORPHINE SULFATE 4 MG/ML INJ. IVP PRN ×2 (01:58→14:27)
[2021-09-27 03:00] VITALS: BP 125/86
[2021-09-27] MEDS ORDERED: GABA300C9 PO (04:39)
[2021-09-27] MEDS ORDERED: TRAZ-123 PO (04:39)
[2021-09-27] MEDS ORDERED: BUPR150T11 PO (04:39)
[2021-09-27] MEDS ORDERED: PANT40TA6 PO (04:39)
[2021-09-27] MEDS ORDERED: HYDR50CA2 PO (04:39)
[2021-09-27] MEDS ORDERED: TADA5TAB12 PO (04:39)
[2021-09-27 06:17] LABS: BASO % 0 % (0-3); EOS % 1 % (0-3); LYMPH # 1.4 x10^3/uL (1.0-4.8); LYMPH % 19 % (24-48); MEAN CORPUSCULAR HEMOGLOBIN 29 pg (25-35); MEAN CORPUSCULAR HGB CONC 33 g/dL (31-37); MEAN CORPUSCULAR VOLUME 88 fL (79-100); MONO # 0.6 x10^3/uL (0.0-1.1); MONO % 8 % (0-9); NEUT # 5.5 x10^3/uL (1.8-7.7); NEUT % 73 % (31-73); PLATELET COUNT 210 x10^3/uL (140-400); RED BLOOD COUNT 5.46 x10^6/uL (4.30-5.70); RED CELL DISTRIBUTION WIDTH 13.6 % (11.5-14.5); WHITE BLOOD COUNT 7.5 x10^3/uL (4.0-11.0)
[2021-09-27 06:34] LABS: CREATININE 1.1 mg/dL (0.7-1.3); GFR 71.4; POTASSIUM 3.9 mmol/L (3.5-5.1)
[2021-09-27 07:00] VITALS: BP 142/98
[2021-09-27 08:56] LABS: CHOLESTEROL/HDL RATIO 2.5
--- NOTE | 2021-09-27 08:56 | PDOC1 ---
History and Physical Date of Admission Date of Admission DATE: 09/27/21 TIME: 08:51 Identification/Chief Complaint Chief Complaint Chest pain Source Source: Patient History of Present Illness History of Present Illness Patient is a 46-year-old male with past medical history anxiety/depression, GERD, who presents to the ED with complaints of left-sided chest pain since yesterday afternoon. He reports sharp pain, without radiation. States he has never felt this type of pain before. At the time my evaluation pain has subsided, but states it is still present. Labs on admission were largely unremarkable, and serial high-sensitivity troponins were 7, 6, and 7. Patient states he is adopted and does not know his family history. I discussed with patient that I do not think anything significant is going on from a cardiac standpoint, but given the fact that he has been admitted from the ED I will give him the courtesy of speaking with one of our cardiologists. Past Medical History Cardiovascular: No pertinent hx Pulmonary: No pertinent hx GI: Diverticulosis Psych: Depression Musculoskeletal: Other Past Surgical History Past Surgical History: Other Family History Family History: Adopted Social History Smoke: No ALCOHOL: occassional Drugs: None Current Problem List Problem List Problems Medical Problems: (1) Anxiety Status: Acute (2) Chest pain Status: Acute Current Medications Current Medications Current Medications Aspirin (Valdemar Aspirin) 325 mg 1X ONCE PO Last administered on 09/26/21at 16:00; Start 09/26/21 at 16:00; Stop 09/26/21 at 16:01; Status DC Nitroglycerin (Nitrostat) 0.4 mg PRN Q5MIN PRN SL CP RATING > 1/10; Start 09/26/21 at 16:00; Stop 09/27/21 at 15:59 Morphine Sulfate (Morphine Sulfate) 4 mg PRN Q15MIN PRN IV/SQ PAIN GREATER THAN 3/10 Last administered on 09/26/21at 21:00; Start 09/26/21 at 16:00; Stop 09/26/21 at 22:55; Status DC Lorazepam (Ativan Inj) 1 mg 1X ONCE IVP Last administered on 09/26/21at 16:15; Start 09/26/21 at 16:15; Stop 09/26/21 at 16:16; Status DC Ondansetron HCl (Zofran) 4 mg PRN Q8HRS PRN IVP NAUSEA/VOMITING; Start 09/26/21 at 20:30; Stop 09/26/21 at 22:55; Status DC Morphine Sulfate (Morphine Sulfate) 4 mg PRN Q2HR PRN IVP PAIN Last administered on 09/27/21at 01:58; Start 09/26/21 at 20:30; Stop 09/27/21 at 20:29 Acetaminophen (Tylenol) 650 mg PRN Q4HRS PRN PO FEVER > 100.3'F; Start 09/26/21 at 20:30; Stop 09/26/21 at 22:55; Status DC Nitroglycerin (Nitrostat) 0.4 mg PRN Q5MIN PRN SL CHEST PAIN; Start 09/26/21 at 20:30; Stop 09/27/21 at 20:29; Status UNV Clonidine HCl (Catapres) 0.1 mg PRN Q8HRS PRN PO HYPERTENSION; Start 09/26/21 at 20:30 Lorazepam (Ativan Inj) 1 mg PRN Q4HRS PRN IVP ANXIETY / AGITATION Last administered on 09/27/21at 01:57; Start 09/26/21 at 20:30 Ondansetron HCl (Zofran) 4 mg PRN Q6HRS PRN IVP NAUSEA/VOMITING 1ST CHOICE Last administered on 09/27/21at 01:57; Start 09/26/21 at 22:45 Al Hydroxide/Mg Hydroxide (Mylanta Plus Xs) 30 ml PRN Q3HRS PRN PO HEARTBURN / GAS; Start 09/26/21 at 22:45 Calcium Carbonate/ Glycine (Tums) 500 mg PRN Q3HRS PRN PO UPSET STOMACH; Start 09/26/21 at 22:45 Zolpidem Tartrate (Ambien) 5 mg PRN QHS PRN PO INSOMNIA, MAY REPEAT IN 1HR; Start 09/26/21 at 22:45 Morphine Sulfate (Morphine Sulfate) 2 mg PRN Q1HR PRN IV SEVERE PAIN 7-10; Start 09/26/21 at 22:45 Acetaminophen (Tylenol) 650 mg PRN Q6HRS PRN PO Headaches, Temp > 101.5F; Start 09/26/21 at 22:45 Active Scripts Active Amitiza (Lubiprostone) 24 Mcg Capsule 24 Mcg PO BIDWMEALS 30 Days Dok (Docusate Sodium) 100 Mg Capsule 100 Mg PO DAILY 30 Days Milk Of Magnesia (Magnesium Hydroxide) 400 Mg/5 Ml Oral.susp 2,400 Mg PO PRN DAILY PRN 30 Days Ondansetron Odt (Ondansetron) 4 Mg Tab.rapdis 4 Mg PO Q6HRS PRN 14 Days Carafate (Sucralfate) 1 Gm/10 Ml Oral.susp 1 Gm PO QIDACHS 60 Days Polyethylene Glycol 3350 17 Gm Powd.pack 17 Gm PO DAILY 30 Days Dicyclomine Hcl 10 Mg Capsule 10 Mg PO PRN QID PRN 14 Days Reported Trazodone Hcl 100 Mg Tablet 100 Mg PO PRN QHS PRN Hydroxyzine Pamoate 50 Mg Capsule 2 Cap PO PRN BID PRN Pantoprazole Sodium 40 Mg Tablet.dr 40 Mg PO DAILY Gabapentin 300 Mg Capsule 300 Mg PO QID PRN Tadalafil 5 Mg Tablet 5 Mg PO DAILY Bupropion Hcl Sr (Bupropion Hcl) 150 Mg Tablet.er 150 Mg PO DAILY Sm Therapeutic M Tablet (Multivit,Ther Iron,Ca,Fa & Min) 1 Each Tablet 2 Tab PO DAILY 30 Days Calcium 1,000 + D3 Caplet (Calcium Carbonate/Vitamin D3) 1 Each Tablet 1.5 Tab PO DAILY 30 Days Allergies Allergies: Coded Allergies: naproxen (Verified Allergy, Intermediate, 08/19/18) ROS Review of System GENERAL: No history of weight change, weakness or fevers. SKIN: No bruising, hair changes or rashes. EYES: No blurred, double or loss of vision. NOSE AND THROAT: No history of nosebleeds, hoarseness or sore throat. HEART: Chest pain. Denies palpitations. LUNGS: Denies cough, hemoptysis, wheezing or shortness of breath. GASTROINTESTINAL: Denies nausea, vomiting, abdominal pain. GENITOURINARY: Denies dysuria, frequency, urgency, hematuria. NEUROLOGIC: Denies history of numbness, tingling, tremor or weakness. PSYCHIATRIC: Denies anxiety, denies depression. ENDOCRINE: No history of heat or cold intolerance, polyuria or polydipsia. EXTREMITIES: Denies muscle weakness, joint pain, pain on walking or stiffness. Physical Exam Physical Exam General: Alert, Oriented X3, Cooperative, No acute distress HEENT: PERRLA, EOMI Lungs: Clear to auscultation, Normal air movement Heart: RRR, no murmurs Cardiovascular: S1, S2 Abdomen: Normal bowel sounds, Soft, No tenderness Extremities: No clubbing, No cyanosis Skin: No rashes, No significant lesion Neuro: Normal speech, Normal tone, Sensation intact Psych/Mental Status: Mental status NL, Mood NL Vitals Vitals Vital Signs Date Time Temp Pulse Resp B/P (MAP) Pulse Ox O2 Delivery O2 Flow Rate FiO2 09/27/21 07:00 98.0 77 18 142/98 (113) 99 98.0 09/26/21 22:20 Room Air Labs Labs Laboratory Tests Test 09/26/21 16:03 09/26/21 17:59 09/26/21 18:10 09/26/21 23:30 White Blood Count 7.7 x10^3/uL (4.0-11.0) Red Blood Count 5.35 x10^6/uL (4.30-5.70) Hemoglobin 15.5 g/dL (13.0-17.5) Hematocrit 47.2 % (39.0-53.0) Mean Corpuscular Volume 88 fL (79-100) Mean Corpuscular Hemoglobin 29 pg (25-35) Mean Corpuscular Hemoglobin Concent 33 g/dL (31-37) Red Cell Distribution Width 13.6 % (11.5-14.5) Platelet Count 228 x10^3/uL (140-400) Neutrophils (%) (Auto) 67 % (31-73) Lymphocytes (%) (Auto) 24 % (24-48) Monocytes (%) (Auto) 8 % (0-9) Eosinophils (%) (Auto) 0 % (0-3) Basophils (%) (Auto) 1 % (0-3) Neutrophils # (Auto) 5.1 x10^3/uL (1.8-7.7) Lymphocytes # (Auto) 1.8 x10^3/uL (1.0-4.8) Monocytes # (Auto) 0.6 x10^3/uL (0.0-1.1) Eosinophils # (Auto) 0.0 x10^3/uL (0.0-0.7) Basophils # (Auto) 0.1 x10^3/uL (0.0-0.2) Sodium Level 141 mmol/L (136-145) Potassium Level 3.8 mmol/L (3.5-5.1) Chloride Level 101 mmol/L (98-107) Carbon Dioxide Level 29 mmol/L (21-32) Anion Gap 11 (6-14) Blood Urea Nitrogen 18 mg/dL (8-26) Creatinine 1.3 mg/dL (0.7-1.3) Estimated GFR (Cockcroft-Gault) 58.9 BUN/Creatinine Ratio 14 (6-20) Glucose Level 102 mg/dL (70-99) Calcium Level 9.5 mg/dL (8.5-10.1) Magnesium Level 2.2 mg/dL (1.8-2.4) Total Bilirubin 0.5 mg/dL (0.2-1.0) Aspartate Amino Transf (AST/SGOT) 26 U/L (15-37) Alanine Aminotransferase (ALT/SGPT) 26 U/L (16-63) Alkaline Phosphatase 62 U/L (46-116) Troponin I High Sensitivity 7 ng/L (4-75) 6 ng/L (4-75) 7 ng/L (4-75) EK-Val-C-Type Natriuretic Peptide 166 pg/mL (0-124) Total Protein 7.5 g/dL (6.4-8.2) Albumin 4.5 g/dL (3.4-5.0) Albumin/Globulin Ratio 1.5 (1.0-1.7) Thyroid Stimulating Hormone (TSH) 1.452 uIU/mL (0.358-3.74) Urine Collection Type Unknown Urine Color (Auto) Yellow Urine Turbidity Clear Urine pH (Auto) 6.0 (<5.0-8.0) Urine Specific [place] 1.020 (1.000-1.030) Urine Protein (Auto) Negative mg/dL (Negative) Urine Glucose (Auto)(UA) Negative mg/dL (Negative) Urine Ketones (Auto) 10 mg/dL (Negative) Urine Blood (Auto) Negative (Negative) Urine Nitrite Negative (Negative) Urine Bilirubin (Auto) Negative (Negative) Urine Urobilinogen (Auto) Normal mg/dL (Normal) Urine Leukocyte Esterase (Auto) Negative (Negative) Urine RBC 1-2 /HPF (0-2) Urine WBC 1-4 /HPF (0-4) Urine Squamous Epithelial Cells Few /LPF Urine Bacteria 0 /HPF (0-FEW) Urine Opiates Screen Pos (NEG) Urine Methadone Screen Neg (NEG) Urine Barbiturates Neg (NEG) Urine Phencyclidine Screen Neg (NEG) Urine Amphetamine/Methamphetamine Neg (NEG) Urine Benzodiazepines Screen Neg (NEG) Urine Cocaine Screen Neg (NEG) Urine Cannabinoids Screen Neg (NEG) Urine Ethyl Alcohol Neg (NEG) Test 09/27/21 05:05 White Blood Count 7.5 x10^3/uL (4.0-11.0) Red Blood Count 5.46 x10^6/uL (4.30-5.70) Hemoglobin 16.0 g/dL (13.0-17.5) Hematocrit 48.0 % (39.0-53.0) Mean Corpuscular Volume 88 fL (79-100) Mean Corpuscular Hemoglobin 29 pg (25-35) Mean Corpuscular Hemoglobin Concent 33 g/dL (31-37) Red Cell Distribution Width 13.6 % (11.5-14.5) Platelet Count 210 x10^3/uL (140-400) Neutrophils (%) (Auto) 73 % (31-73) Lymphocytes (%) (Auto) 19 % (24-48) Monocytes (%) (Auto) 8 % (0-9) Eosinophils (%) (Auto) 1 % (0-3) Basophils (%) (Auto) 0 % (0-3) Neutrophils # (Auto) 5.5 x10^3/uL (1.8-7.7) Lymphocytes # (Auto) 1.4 x10^3/uL (1.0-4.8) Monocytes # (Auto) 0.6 x10^3/uL (0.0-1.1) Eosinophils # (Auto) 0.0 x10^3/uL (0.0-0.7) Basophils # (Auto) 0.0 x10^3/uL (0.0-0.2) Sodium Level 139 mmol/L (136-145) Potassium Level 3.9 mmol/L (3.5-5.1) Chloride Level 102 mmol/L (98-107) Carbon Dioxide Level 26 mmol/L (21-32) Anion Gap 11 (6-14) Blood Urea Nitrogen 18 mg/dL (8-26) Creatinine 1.1 mg/dL (0.7-1.3) Estimated GFR (Cockcroft-Gault) 71.4 Glucose Level 111 mg/dL (70-99) Calcium Level 9.0 mg/dL (8.5-10.1) Laboratory Tests Test 09/26/21 16:03 09/26/21 17:59 09/26/21 18:10 09/26/21 23:30 White Blood Count 7.7 x10^3/uL (4.0-11.0) Red Blood Count 5.35 x10^6/uL (4.30-5.70) Hemoglobin 15.5 g/dL (13.0-17.5) Hematocrit 47.2 % (39.0-53.0) Mean Corpuscular Volume 88 fL (79-100) Mean Corpuscular Hemoglobin 29 pg (25-35) Mean Corpuscular Hemoglobin Concent 33 g/dL (31-37) Red Cell Distribution Width 13.6 % (11.5-14.5) Platelet Count 228 x10^3/uL (140-400) Neutrophils (%) (Auto) 67 % (31-73) Lymphocytes (%) (Auto) 24 % (24-48) Monocytes (%) (Auto) 8 % (0-9) Eosinophils (%) (Auto) 0 % (0-3) Basophils (%) (Auto) 1 % (0-3) Neutrophils # (Auto) 5.1 x10^3/uL (1.8-7.7) Lymphocytes # (Auto) 1.8 x10^3/uL (1.0-4.8) Monocytes # (Auto) 0.6 x10^3/uL (0.0-1.1) Eosinophils # (Auto) 0.0 x10^3/uL (0.0-0.7) Basophils # (Auto) 0.1 x10^3/uL (0.0-0.2) Sodium Level 141 mmol/L (136-145) Potassium Level 3.8 mmol/L (3.5-5.1) Chloride Level 101 mmol/L (98-107) Carbon Dioxide Level 29 mmol/L (21-32) Anion Gap 11 (6-14) Blood Urea Nitrogen 18 mg/dL (8-26) Creatinine 1.3 mg/dL (0.7-1.3) Estimated GFR (Cockcroft-Gault) 58.9 BUN/Creatinine Ratio 14 (6-20) Glucose Level 102 mg/dL (70-99) Calcium Level 9.5 mg/dL (8.5-10.1) Magnesium Level 2.2 mg/dL (1.8-2.4) Total Bilirubin 0.5 mg/dL (0.2-1.0) Aspartate Amino Transf (AST/SGOT) 26 U/L (15-37) Alanine Aminotransferase (ALT/SGPT) 26 U/L (16-63) Alkaline Phosphatase 62 U/L (46-116) Troponin I High Sensitivity 7 ng/L (4-75) 6 ng/L (4-75) 7 ng/L (4-75) SF-Wlh-L-Type Natriuretic Peptide 166 pg/mL (0-124) Total Protein 7.5 g/dL (6.4-8.2) Albumin 4.5 g/dL (3.4-5.0) Albumin/Globulin Ratio 1.5 (1.0-1.7) Thyroid Stimulating Hormone (TSH) 1.452 uIU/mL (0.358-3.74) Urine Collection Type Unknown Urine Color (Auto) Yellow Urine Turbidity Clear Urine pH (Auto) 6.0 (<5.0-8.0) Urine Specific [place] 1.020 (1.000-1.030) Urine Protein (Auto) Negative mg/dL (Negative) Urine Glucose (Auto)(UA) Negative mg/dL (Negative) Urine Ketones (Auto) 10 mg/dL (Negative) Urine Blood (Auto) Negative (Negative) Urine Nitrite Negative (Negative) Urine Bilirubin (Auto) Negative (Negative) Urine Urobilinogen (Auto) Normal mg/dL (Normal) Urine Leukocyte Esterase (Auto) Negative (Negative) Urine RBC 1-2 /HPF (0-2) Urine WBC 1-4 /HPF (0-4) Urine Squamous Epithelial Cells Few /LPF Urine Bacteria 0 /HPF (0-FEW) Urine Opiates Screen Pos (NEG) Urine Methadone Screen Neg (NEG) Urine Barbiturates Neg (NEG) Urine Phencyclidine Screen Neg (NEG) Urine Amphetamine/Methamphetamine Neg (NEG) Urine Benzodiazepines Screen Neg (NEG) Urine Cocaine Screen Neg (NEG) Urine Cannabinoids Screen Neg (NEG) Urine Ethyl Alcohol Neg (NEG) Test 09/27/21 05:05 White Blood Count 7.5 x10^3/uL (4.0-11.0) Red Blood Count 5.46 x10^6/uL (4.30-5.70) Hemoglobin 16.0 g/dL (13.0-17.5) Hematocrit 48.0 % (39.0-53.0) Mean Corpuscular Volume 88 fL (79-100) Mean Corpuscular Hemoglobin 29 pg (25-35) Mean Corpuscular Hemoglobin Concent 33 g/dL (31-37) Red Cell Distribution Width 13.6 % (11.5-14.5) Platelet Count 210 x10^3/uL (140-400) Neutrophils (%) (Auto) 73 % (31-73) Lymphocytes (%) (Auto) 19 % (24-48) Monocytes (%) (Auto) 8 % (0-9) Eosinophils (%) (Auto) 1 % (0-3) Basophils (%) (Auto) 0 % (0-3) Neutrophils # (Auto) 5.5 x10^3/uL (1.8-7.7) Lymphocytes # (Auto) 1.4 x10^3/uL (1.0-4.8) Monocytes # (Auto) 0.6 x10^3/uL (0.0-1.1) Eosinophils # (Auto) 0.0 x10^3/uL (0.0-0.7) Basophils # (Auto) 0.0 x10^3/uL (0.0-0.2) Sodium Level 139 mmol/L (136-145) Potassium Level 3.9 mmol/L (3.5-5.1) Chloride Level 102 mmol/L (98-107) Carbon Dioxide Level 26 mmol/L (21-32) Anion Gap 11 (6-14) Blood Urea Nitrogen 18 mg/dL (8-26) Creatinine 1.1 mg/dL (0.7-1.3) Estimated GFR (Cockcroft-Gault) 71.4 Glucose Level 111 mg/dL (70-99) Calcium Level 9.0 mg/dL (8.5-10.1) Images Images PATIENT: KIRT DEL TORO ACCOUNT: [id number] : 1975 LOCATION: ER AGE: 46 SEX: M EXAM STATUS: REG ER ORD. PHYSICIAN: JACQUELIN KAISER APRN REASON: chest pain PROCEDURE: PORTABLE CHEST 1V XR CHEST 1V 09/26/2021 3:54 PM INDICATION: Chest pain COMPARISON: None available TECHNIQUE: Portable frontal view of the chest is provided. FINDINGS: The cardiomediastinal silhouette is within normal limits. Lungs are clear. There are no significant pleural effusions. There is no pulmonary vascular congestion. No pneumothorax. No suspicious osseous abnormality. IMPRESSION: There is no acute cardiopulmonary process. VTE Prophylaxis Ordered VTE Prophylaxis Devices: No VTE Pharmacological Prophylaxi: Yes Assessment/Plan Assessment/Plan Chest pain Anxiety/depression GERD Plan: Patient has been admitted for observation He will likely discharge today given the fact that I did not think his pain is cardiac in nature Cardiology was consulted Anticipate discharge today with outpatient follow-up FEN - Cardiac diet PPX - ambulatory FULL CODE Dispo - observation for above Justifications for Admission Other Justification DAVIS FRANZ MD Sep 27, 2021 08:56
--- NOTE | 2021-09-27 10:36 | PDOC2 ---
MORAIMA [facility] [employer] 09/27/21 1036: CARDIAC CONSULT DATE OF CONSULT Date of Consult DATE: 09/27/21 TIME: 10:17 REASON FOR CONSULT Reason for Consult: Chest pain REFERRING PHYSICIAN Referring Physician: Luis Angel SOURCE Source: Chart review, Patient HISTORY OF PRESENT ILLNESS HISTORY OF PRESENT ILLNESS This is a pleasant 46 yo male admitted for complains of chest pain. Reports that he started having left chest stabbing, sharp pain yesterday that was just constant. This was associated with nausea, dizziness but no palpitations. He admits becoming anxious about and in fact he got some ativan in ED which calmed him. Reports that he also has been having SOA with exertion using the stairs at his work and this has been increasing in the last month. 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 He lost a total of 190 pounds but gained 40 pounds back. He denies NSAID use. He used to take HTN meds but was improved and stop taking his meds s quentin his wt loss help resolved this issue. He does do heavy exertion in his job but denies any associated chest pain. Denies any recent fall, injury, viral respiratory symptom. He is vaccinated for covid-19. No prior hx of VTE, CAD or arrhythmias. 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) GI: GERD Hepatobiliary: Cholelithiasis Psych: No pertinent hx Musculoskeletal: Osteoarthritis Rheumatologic: No pertinent hx Infectious disease: No pertinent hx ENT: No pertinent hx Renal/: No pertinent hx Endocrine: Diabetes (pre) Dermatology: No pertinent hx PAST SURGICAL HISTORY Past Surgical History: Arthroscopy (Right shoulder and right knee), Other ( gastric bypass, LTSA, vasectomy) FAMILY HISTORY Family History: Adopted SOCIAL HISTORY Smoke: # pack years (chews tobacco) ALCOHOL: occassional Drugs: None Lives: with Family CURRENT MEDICATIONS CURRENT MEDICATIONS Current Medications Medications (Trade) Dose Ordered Sig/Bushra Route PRN Reason Start Time Stop Time Status Last Admin Dose Admin Aspirin (Valdemar Aspirin) 325 mg 1X ONCE PO 09/26/21 16:00 09/26/21 16:01 DC 09/26/21 16:00 Morphine Sulfate (Morphine Sulfate) 4 mg PRN Q15MIN PRN IV/SQ PAIN GREATER THAN 3/10 09/26/21 16:00 09/26/21 22:55 DC 09/26/21 21:00 Lorazepam (Ativan Inj) 1 mg 1X ONCE IVP 09/26/21 16:15 09/26/21 16:16 DC 09/26/21 16:15 Morphine Sulfate (Morphine Sulfate) 4 mg PRN Q2HR PRN IVP PAIN 09/26/21 20:30 09/27/21 20:29 09/27/21 01:58 Lorazepam (Ativan Inj) 1 mg PRN Q4HRS PRN IVP ANXIETY / AGITATION 09/26/21 20:30 09/27/21 01:57 Ondansetron HCl (Zofran) 4 mg PRN Q6HRS PRN IVP NAUSEA/VOMITING 1ST CHOICE 09/26/21 22:45 09/27/21 01:57 ALLERGIES ALLERGIES: Coded Allergies: naproxen (Verified Allergy, Intermediate, 08/19/18) ROS Review of System 14 point ROS evaluated with pertinent positives noted per HPI PHYSICAL EXAM General: Alert, Oriented X3, Cooperative HEENT: Atraumatic, Mucous membr. moist/pink Lungs: Clear to auscultation, Normal air movement Heart: Regular rate (SR), Normal S1, Normal S2, No murmurs Abdomen: Soft, No tenderness Extremities: No cyanosis, No edema Skin: No breakdown, No significant lesion Neuro: Normal speech, Sensation intact Psych/Mental Status: Mental status NL, Mood NL MUSCULOSKELETAL: Osteoarthritic changes both hands VITALS/I&O VITALS/I&O: Vital Signs Date Time Temp Pulse Resp B/P (MAP) Pulse Ox O2 Delivery O2 Flow Rate FiO2 09/27/21 07:00 98.0 77 18 142/98 (113) 99 98.0 09/26/21 22:20 Room Air LABS Lab: Laboratory Tests Test 09/26/21 16:03 09/26/21 17:59 09/26/21 18:10 09/26/21 23:30 White Blood Count 7.7 x10^3/uL (4.0-11.0) Red Blood Count 5.35 x10^6/uL (4.30-5.70) Hemoglobin 15.5 g/dL (13.0-17.5) Hematocrit 47.2 % (39.0-53.0) Mean Corpuscular Volume 88 fL (79-100) Mean Corpuscular Hemoglobin 29 pg (25-35) Mean Corpuscular Hemoglobin Concent 33 g/dL (31-37) Red Cell Distribution Width 13.6 % (11.5-14.5) Platelet Count 228 x10^3/uL (140-400) Neutrophils (%) (Auto) 67 % (31-73) Lymphocytes (%) (Auto) 24 % (24-48) Monocytes (%) (Auto) 8 % (0-9) Eosinophils (%) (Auto) 0 % (0-3) Basophils (%) (Auto) 1 % (0-3) Neutrophils # (Auto) 5.1 x10^3/uL (1.8-7.7) Lymphocytes # (Auto) 1.8 x10^3/uL (1.0-4.8) Monocytes # (Auto) 0.6 x10^3/uL (0.0-1.1) Eosinophils # (Auto) 0.0 x10^3/uL (0.0-0.7) Basophils # (Auto) 0.1 x10^3/uL (0.0-0.2) Sodium Level 141 mmol/L (136-145) Potassium Level 3.8 mmol/L (3.5-5.1) Chloride Level 101 mmol/L (98-107) Carbon Dioxide Level 29 mmol/L (21-32) Anion Gap 11 (6-14) Blood Urea Nitrogen 18 mg/dL (8-26) Creatinine 1.3 mg/dL (0.7-1.3) Estimated GFR (Cockcroft-Gault) 58.9 BUN/Creatinine Ratio 14 (6-20) Glucose Level 102 mg/dL (70-99) H Calcium Level 9.5 mg/dL (8.5-10.1) Magnesium Level 2.2 mg/dL (1.8-2.4) Total Bilirubin 0.5 mg/dL (0.2-1.0) Aspartate Amino Transferase (AST) 26 U/L (15-37) Alanine Aminotransferase (ALT) 26 U/L (16-63) Alkaline Phosphatase 62 U/L (46-116) Troponin I High Sensitivity 7 ng/L (4-75) 6 ng/L (4-75) 7 ng/L (4-75) GJ-Uya-D-Type Natriuretic Peptide 166 pg/mL (0-124) H Total Protein 7.5 g/dL (6.4-8.2) Albumin 4.5 g/dL (3.4-5.0) Albumin/Globulin Ratio 1.5 (1.0-1.7) Thyroid Stimulating Hormone (TSH) 1.452 uIU/mL (0.358-3.74) Urine Collection Type Unknown Urine Color (Auto) Yellow Urine Turbidity Clear Urine pH (Auto) 6.0 (<5.0-8.0) Urine Specific [place] 1.020 (1.000-1.030) Urine Protein (Auto) Negative mg/dL (Negative) Urine Glucose (Auto)(UA) Negative mg/dL (Negative) Urine Ketones (Auto) 10 mg/dL (Negative) Urine Blood (Auto) Negative (Negative) Urine Nitrite Negative (Negative) Urine Bilirubin (Auto) Negative (Negative) Urine Urobilinogen (Auto) Normal mg/dL (Normal) Urine Leukocyte Esterase (Auto) Negative (Negative) Urine RBC 1-2 /HPF (0-2) Urine WBC 1-4 /HPF (0-4) Urine Squamous Epithelial Cells Few /LPF Urine Bacteria 0 /HPF (0-FEW) Urine Opiates Screen Pos (NEG) Urine Methadone Screen Neg (NEG) Urine Barbiturates Neg (NEG) Urine Phencyclidine Screen Neg (NEG) Urine Amphetamine/Methamphetamine Neg (NEG) Urine Benzodiazepines Screen Neg (NEG) Urine Cocaine Screen Neg (NEG) Urine Cannabinoids Screen Neg (NEG) Urine Ethyl Alcohol Neg (NEG) Test 09/27/21 05:05 White Blood Count 7.5 x10^3/uL (4.0-11.0) Red Blood Count 5.46 x10^6/uL (4.30-5.70) Hemoglobin 16.0 g/dL (13.0-17.5) Hematocrit 48.0 % (39.0-53.0) Mean Corpuscular Volume 88 fL (79-100) Mean Corpuscular Hemoglobin 29 pg (25-35) Mean Corpuscular Hemoglobin Concent 33 g/dL (31-37) Red Cell Distribution Width 13.6 % (11.5-14.5) Platelet Count 210 x10^3/uL (140-400) Neutrophils (%) (Auto) 73 % (31-73) Lymphocytes (%) (Auto) 19 % (24-48) L Monocytes (%) (Auto) 8 % (0-9) Eosinophils (%) (Auto) 1 % (0-3) Basophils (%) (Auto) 0 % (0-3) Neutrophils # (Auto) 5.5 x10^3/uL (1.8-7.7) Lymphocytes # (Auto) 1.4 x10^3/uL (1.0-4.8) Monocytes # (Auto) 0.6 x10^3/uL (0.0-1.1) Eosinophils # (Auto) 0.0 x10^3/uL (0.0-0.7) Basophils # (Auto) 0.0 x10^3/uL (0.0-0.2) Sodium Level 139 mmol/L (136-145) Potassium Level 3.9 mmol/L (3.5-5.1) Chloride Level 102 mmol/L (98-107) Carbon Dioxide Level 26 mmol/L (21-32) Anion Gap 11 (6-14) Blood Urea Nitrogen 18 mg/dL (8-26) Creatinine 1.1 mg/dL (0.7-1.3) Estimated GFR (Cockcroft-Gault) 71.4 Glucose Level 111 mg/dL (70-99) H Calcium Level 9.0 mg/dL (8.5-10.1) Triglycerides Level 60 mg/dL (0-150) Cholesterol Level 171 mg/dL (0-200) LDL Cholesterol, Calculated 90 mg/dL (0-100) VLDL Cholesterol, Calculated 12 mg/dL (0-40) Non-HDL Cholesterol Calculated 102 mg/dL (0-129) HDL Cholesterol 69 mg/dL (40-60) H Cholesterol/HDL Ratio 2.5 Laboratory Tests 09/26/21 16:03 09/27/21 05:05 Laboratory Tests 09/26/21 16:03 09/27/21 05:05 ASSESSMENT/PLAN ASSESSMENT/PLAN 1. Atypical Chest pain: possibly GI with associated anxiety 2. Hx of HTN, RICHARD: reported resolved after wt loss. mostly controlled 3. Hx of gastric bypass: 5 yrs ago 4. Tobaccoism: chews 5. Asymptomatic paroxysmal accelerated junctional rhythm otherwsie SR Recommendations His symptoms are not typical for ischemic and rather this is likely GI and anxiety however this does not explain his reports of developing exertional dyspnea and there are no medications or electrolyte issues that would also precipitate his junctional rhythm. TTE today. If the latter is unremarkable then may DC this afternoon and schedule for treadmill MPI tomorrow. Follow up in office with Dr. Hammond on October 23 at 1 PM and would consider for OTTO FELDMAN MD 09/27/21 1318: CARDIAC CONSULT ASSESSMENT/PLAN ASSESSMENT/PLAN Patient seen and examined He is feeling better today with his chest pain resolved. No acute ischemic EKG changes. Troponin normal. I agree with our nurse practitioners assessment and plan. Atypical Chest pain: possibly GI with associated anxiety Hx of HTN, RICHARD: reported resolved after wt loss. mostly controlled Hx of gastric bypass: 5 yrs ago Tobaccoism: chews Asymptomatic paroxysmal accelerated junctional rhythm otherpetty VILLATORO Echo pending. Probable treadmill MPI tomorrow. Outpatient office follow-up. MORAIMA MOON APRN Sep 27, 2021 10:36 OTTO HAMMOND MD Sep 27, 2021 13:18
[2021-09-27 11:00] VITALS: BP 131/83
--- NOTE | 2021-09-27 13:38 | PDOC3 ---
Discharge Summary Visit Information Date of Admission: Sep 27, 2021 Date of Discharge: Sep 27, 2021 Final Diagnosis Problems Medical Problems: (1) Anxiety Status: Acute (2) Chest pain Status: Acute Brief Hospital Course Allergies Allergies Coded Allergies Type Severity Reaction Last Updated Verified naproxen Allergy Intermediate 08/19/18 Yes Vital Signs Vital Signs Date Time Temp Pulse Resp B/P (MAP) Pulse Ox O2 Delivery O2 Flow Rate FiO2 09/27/21 11:00 97.8 54 18 131/83 (99) 96 97.8 09/26/21 22:20 Room Air Lab Results Laboratory Tests Test 09/26/21 16:03 09/26/21 17:59 09/26/21 18:10 09/26/21 23:30 White Blood Count 7.7 x10^3/uL (4.0-11.0) Red Blood Count 5.35 x10^6/uL (4.30-5.70) Hemoglobin 15.5 g/dL (13.0-17.5) Hematocrit 47.2 % (39.0-53.0) Mean Corpuscular Volume 88 fL (79-100) Mean Corpuscular Hemoglobin 29 pg (25-35) Mean Corpuscular Hemoglobin Concent 33 g/dL (31-37) Red Cell Distribution Width 13.6 % (11.5-14.5) Platelet Count 228 x10^3/uL (140-400) Neutrophils (%) (Auto) 67 % (31-73) Lymphocytes (%) (Auto) 24 % (24-48) Monocytes (%) (Auto) 8 % (0-9) Eosinophils (%) (Auto) 0 % (0-3) Basophils (%) (Auto) 1 % (0-3) Neutrophils # (Auto) 5.1 x10^3/uL (1.8-7.7) Lymphocytes # (Auto) 1.8 x10^3/uL (1.0-4.8) Monocytes # (Auto) 0.6 x10^3/uL (0.0-1.1) Eosinophils # (Auto) 0.0 x10^3/uL (0.0-0.7) Basophils # (Auto) 0.1 x10^3/uL (0.0-0.2) Sodium Level 141 mmol/L (136-145) Potassium Level 3.8 mmol/L (3.5-5.1) Chloride Level 101 mmol/L (98-107) Carbon Dioxide Level 29 mmol/L (21-32) Anion Gap 11 (6-14) Blood Urea Nitrogen 18 mg/dL (8-26) Creatinine 1.3 mg/dL (0.7-1.3) Estimated GFR (Cockcroft-Gault) 58.9 BUN/Creatinine Ratio 14 (6-20) Glucose Level 102 mg/dL (70-99) Calcium Level 9.5 mg/dL (8.5-10.1) Magnesium Level 2.2 mg/dL (1.8-2.4) Total Bilirubin 0.5 mg/dL (0.2-1.0) Aspartate Amino Transf (AST/SGOT) 26 U/L (15-37) Alanine Aminotransferase (ALT/SGPT) 26 U/L (16-63) Alkaline Phosphatase 62 U/L (46-116) Troponin I High Sensitivity 7 ng/L (4-75) 6 ng/L (4-75) 7 ng/L (4-75) NO-Ifd-Q-Type Natriuretic Peptide 166 pg/mL (0-124) Total Protein 7.5 g/dL (6.4-8.2) Albumin 4.5 g/dL (3.4-5.0) Albumin/Globulin Ratio 1.5 (1.0-1.7) Thyroid Stimulating Hormone (TSH) 1.452 uIU/mL (0.358-3.74) Urine Collection Type Unknown Urine Color (Auto) Yellow Urine Turbidity Clear Urine pH (Auto) 6.0 (<5.0-8.0) Urine Specific [place] 1.020 (1.000-1.030) Urine Protein (Auto) Negative mg/dL (Negative) Urine Glucose (Auto)(UA) Negative mg/dL (Negative) Urine Ketones (Auto) 10 mg/dL (Negative) Urine Blood (Auto) Negative (Negative) Urine Nitrite Negative (Negative) Urine Bilirubin (Auto) Negative (Negative) Urine Urobilinogen (Auto) Normal mg/dL (Normal) Urine Leukocyte Esterase (Auto) Negative (Negative) Urine RBC 1-2 /HPF (0-2) Urine WBC 1-4 /HPF (0-4) Urine Squamous Epithelial Cells Few /LPF Urine Bacteria 0 /HPF (0-FEW) Urine Opiates Screen Pos (NEG) Urine Methadone Screen Neg (NEG) Urine Barbiturates Neg (NEG) Urine Phencyclidine Screen Neg (NEG) Urine Amphetamine/Methamphetamine Neg (NEG) Urine Benzodiazepines Screen Neg (NEG) Urine Cocaine Screen Neg (NEG) Urine Cannabinoids Screen Neg (NEG) Urine Ethyl Alcohol Neg (NEG) Test 09/27/21 05:05 White Blood Count 7.5 x10^3/uL (4.0-11.0) Red Blood Count 5.46 x10^6/uL (4.30-5.70) Hemoglobin 16.0 g/dL (13.0-17.5) Hematocrit 48.0 % (39.0-53.0) Mean Corpuscular Volume 88 fL (79-100) Mean Corpuscular Hemoglobin 29 pg (25-35) Mean Corpuscular Hemoglobin Concent 33 g/dL (31-37) Red Cell Distribution Width 13.6 % (11.5-14.5) Platelet Count 210 x10^3/uL (140-400) Neutrophils (%) (Auto) 73 % (31-73) Lymphocytes (%) (Auto) 19 % (24-48) Monocytes (%) (Auto) 8 % (0-9) Eosinophils (%) (Auto) 1 % (0-3) Basophils (%) (Auto) 0 % (0-3) Neutrophils # (Auto) 5.5 x10^3/uL (1.8-7.7) Lymphocytes # (Auto) 1.4 x10^3/uL (1.0-4.8) Monocytes # (Auto) 0.6 x10^3/uL (0.0-1.1) Eosinophils # (Auto) 0.0 x10^3/uL (0.0-0.7) Basophils # (Auto) 0.0 x10^3/uL (0.0-0.2) Sodium Level 139 mmol/L (136-145) Potassium Level 3.9 mmol/L (3.5-5.1) Chloride Level 102 mmol/L (98-107) Carbon Dioxide Level 26 mmol/L (21-32) Anion Gap 11 (6-14) Blood Urea Nitrogen 18 mg/dL (8-26) Creatinine 1.1 mg/dL (0.7-1.3) Estimated GFR (Cockcroft-Gault) 71.4 Glucose Level 111 mg/dL (70-99) Calcium Level 9.0 mg/dL (8.5-10.1) Triglycerides Level 60 mg/dL (0-150) Cholesterol Level 171 mg/dL (0-200) LDL Cholesterol, Calculated 90 mg/dL (0-100) VLDL Cholesterol, Calculated 12 mg/dL (0-40) Non-HDL Cholesterol Calculated 102 mg/dL (0-129) HDL Cholesterol 69 mg/dL (40-60) Cholesterol/HDL Ratio 2.5 Laboratory Tests Test 09/26/21 16:03 09/26/21 17:59 09/26/21 18:10 09/26/21 23:30 White Blood Count 7.7 x10^3/uL (4.0-11.0) Red Blood Count 5.35 x10^6/uL (4.30-5.70) Hemoglobin 15.5 g/dL (13.0-17.5) Hematocrit 47.2 % (39.0-53.0) Mean Corpuscular Volume 88 fL (79-100) Mean Corpuscular Hemoglobin 29 pg (25-35) Mean Corpuscular Hemoglobin Concent 33 g/dL (31-37) Red Cell Distribution Width 13.6 % (11.5-14.5) Platelet Count 228 x10^3/uL (140-400) Neutrophils (%) (Auto) 67 % (31-73) Lymphocytes (%) (Auto) 24 % (24-48) Monocytes (%) (Auto) 8 % (0-9) Eosinophils (%) (Auto) 0 % (0-3) Basophils (%) (Auto) 1 % (0-3) Neutrophils # (Auto) 5.1 x10^3/uL (1.8-7.7) Lymphocytes # (Auto) 1.8 x10^3/uL (1.0-4.8) Monocytes # (Auto) 0.6 x10^3/uL (0.0-1.1) Eosinophils # (Auto) 0.0 x10^3/uL (0.0-0.7) Basophils # (Auto) 0.1 x10^3/uL (0.0-0.2) Sodium Level 141 mmol/L (136-145) Potassium Level 3.8 mmol/L (3.5-5.1) Chloride Level 101 mmol/L (98-107) Carbon Dioxide Level 29 mmol/L (21-32) Anion Gap 11 (6-14) Blood Urea Nitrogen 18 mg/dL (8-26) Creatinine 1.3 mg/dL (0.7-1.3) Estimated GFR (Cockcroft-Gault) 58.9 BUN/Creatinine Ratio 14 (6-20) Glucose Level 102 mg/dL (70-99) Calcium Level 9.5 mg/dL (8.5-10.1) Magnesium Level 2.2 mg/dL (1.8-2.4) Total Bilirubin 0.5 mg/dL (0.2-1.0) Aspartate Amino Transf (AST/SGOT) 26 U/L (15-37) Alanine Aminotransferase (ALT/SGPT) 26 U/L (16-63) Alkaline Phosphatase 62 U/L (46-116) Troponin I High Sensitivity 7 ng/L (4-75) 6 ng/L (4-75) 7 ng/L (4-75) QX-Epk-J-Type Natriuretic Peptide 166 pg/mL (0-124) Total Protein 7.5 g/dL (6.4-8.2) Albumin 4.5 g/dL (3.4-5.0) Albumin/Globulin Ratio 1.5 (1.0-1.7) Thyroid Stimulating Hormone (TSH) 1.452 uIU/mL (0.358-3.74) Urine Collection Type Unknown Urine Color (Auto) Yellow Urine Turbidity Clear Urine pH (Auto) 6.0 (<5.0-8.0) Urine Specific [place] 1.020 (1.000-1.030) Urine Protein (Auto) Negative mg/dL (Negative) Urine Glucose (Auto)(UA) Negative mg/dL (Negative) Urine Ketones (Auto) 10 mg/dL (Negative) Urine Blood (Auto) Negative (Negative) Urine Nitrite Negative (Negative) Urine Bilirubin (Auto) Negative (Negative) Urine Urobilinogen (Auto) Normal mg/dL (Normal) Urine Leukocyte Esterase (Auto) Negative (Negative) Urine RBC 1-2 /HPF (0-2) Urine WBC 1-4 /HPF (0-4) Urine Squamous Epithelial Cells Few /LPF Urine Bacteria 0 /HPF (0-FEW) Urine Opiates Screen Pos (NEG) Urine Methadone Screen Neg (NEG) Urine Barbiturates Neg (NEG) Urine Phencyclidine Screen Neg (NEG) Urine Amphetamine/Methamphetamine Neg (NEG) Urine Benzodiazepines Screen Neg (NEG) Urine Cocaine Screen Neg (NEG) Urine Cannabinoids Screen Neg (NEG) Urine Ethyl Alcohol Neg (NEG) Test 09/27/21 05:05 White Blood Count 7.5 x10^3/uL (4.0-11.0) Red Blood Count 5.46 x10^6/uL (4.30-5.70) Hemoglobin 16.0 g/dL (13.0-17.5) Hematocrit 48.0 % (39.0-53.0) Mean Corpuscular Volume 88 fL (79-100) Mean Corpuscular Hemoglobin 29 pg (25-35) Mean Corpuscular Hemoglobin Concent 33 g/dL (31-37) Red Cell Distribution Width 13.6 % (11.5-14.5) Platelet Count 210 x10^3/uL (140-400) Neutrophils (%) (Auto) 73 % (31-73) Lymphocytes (%) (Auto) 19 % (24-48) Monocytes (%) (Auto) 8 % (0-9) Eosinophils (%) (Auto) 1 % (0-3) Basophils (%) (Auto) 0 % (0-3) Neutrophils # (Auto) 5.5 x10^3/uL (1.8-7.7) Lymphocytes # (Auto) 1.4 x10^3/uL (1.0-4.8) Monocytes # (Auto) 0.6 x10^3/uL (0.0-1.1) Eosinophils # (Auto) 0.0 x10^3/uL (0.0-0.7) Basophils # (Auto) 0.0 x10^3/uL (0.0-0.2) Sodium Level 139 mmol/L (136-145) Potassium Level 3.9 mmol/L (3.5-5.1) Chloride Level 102 mmol/L (98-107) Carbon Dioxide Level 26 mmol/L (21-32) Anion Gap 11 (6-14) Blood Urea Nitrogen 18 mg/dL (8-26) Creatinine 1.1 mg/dL (0.7-1.3) Estimated GFR (Cockcroft-Gault) 71.4 Glucose Level 111 mg/dL (70-99) Calcium Level 9.0 mg/dL (8.5-10.1) Triglycerides Level 60 mg/dL (0-150) Cholesterol Level 171 mg/dL (0-200) LDL Cholesterol, Calculated 90 mg/dL (0-100) VLDL Cholesterol, Calculated 12 mg/dL (0-40) Non-HDL Cholesterol Calculated 102 mg/dL (0-129) HDL Cholesterol 69 mg/dL (40-60) Cholesterol/HDL Ratio 2.5 Brief Hospital Course Mr. Worrell is a 46 old male who presented with chest pain. Troponins were unremarkable. Echocardiogram largely normal. Consultation placed to cardiology. Recommended outpatient follow-up. Discharge Information Condition at Discharge: Stable Disposition/Orders: D/C to Home Scheduled Bupropion Hcl (Bupropion Hcl Sr) 150 Mg Tablet.er, 150 MG PO DAILY for depression, (Reported) Entered as Reported by: JU URRUTIA on 09/27/21438 Last Action: New Order on 09/27/21438 by JU URRUTIA Calcium Carbonate/Vitamin D3 (Calcium 1,000 + D3 Caplet) 1 Each Tablet, 1.5 TAB PO DAILY for Supplement for 30 Days, #45 Ref 0 (Reported) Entered as Reported by: CAROLINA BIRD RN on 03/20/20 1324 Docusate Sodium (Dok) 100 Mg Capsule, 100 MG PO DAILY for constipation for 30 Days, #30 Prescribed by: MANA CEDEÑO MD on 03/25/20 1052 Lubiprostone (Amitiza) 24 Mcg Capsule, 24 MCG PO BIDWMEALS for constipation for 30 Days, #60 Prescribed by: MANA CEDEÑO MD on 03/25/20 1052 Multivit,Ther Iron,Ca,Fa & Min (Sm Therapeutic M Tablet) 1 Each Tablet, 2 TAB PO DAILY for supplement for 30 Days, #60 Ref 0 (Reported) Entered as Reported by: CAROLINA BIRD RN on 03/20/20 1324 Pantoprazole Sodium (Pantoprazole Sodium) 40 Mg Tablet.dr, 40 MG PO DAILY for GERD, (Reported) Entered as Reported by: JU URRUTIA on 09/27/21438 Last Action: New Order on 09/27/21438 by JU URRUTIA Polyethylene Glycol 3350 (Polyethylene Glycol 3350) 17 Gm Powd.pack, 17 GM PO DAILY for STOOL REGIMEN for 30 Days, #30 Prescribed by: EDITH JANSEN MD on 08/26/18 1427 Sucralfate (Carafate) 1 Gm/10 Ml Oral.susp, 1 GM PO QIDACHS for GASTRITIS for 60 Days, #90 Prescribed by: EDITH JANSEN MD on 08/26/18 1427 Tadalafil (Tadalafil) 5 Mg Tablet, 5 MG PO DAILY for ED, (Reported) Entered as Reported by: JU URRUTIA on 09/27/21438 Last Action: New Order on 09/27/21438 by JU URRUTIA Scheduled PRN Dicyclomine Hcl (Dicyclomine Hcl) 10 Mg Capsule, 10 MG PO PRN QID PRN for abd pain for 14 Days, #60 Prescribed by: EDITH JANSEN MD on 08/26/18 142 Gabapentin (Gabapentin) 300 Mg Capsule, 300 MG PO QID PRN for PAIN, (Reported) Entered as Reported by: JU URRUTIA on 09/27/21438 Last Action: New Order on 09/27/21438 by JU URRUTIA Hydroxyzine Pamoate (Hydroxyzine Pamoate) 50 Mg Capsule, 2 CAP PO PRN BID PRN for ANXIETY, (Reported) Entered as Reported by: JU URRUTIA on 09/27/21438 Last Action: New Order on 09/27/21438 by JU URRUTIA Magnesium Hydroxide (Milk Of Magnesia) 400 Mg/5 Ml Oral.susp, 2,400 MG PO PRN DAILY PRN for CONSTIPATION (1st Choice) for 30 Days, #120 Prescribed by: EDITH JANSEN MD on 08/26/18 1427 Ondansetron (Ondansetron Odt) 4 Mg Tab.rapdis, 4 MG PO Q6HRS PRN for NAUSEA/VOMITING 1ST CHOICE for 14 Days, #56 Prescribed by: EDITH JANSEN MD on 08/26/18 142 Trazodone Hcl (Trazodone Hcl) 100 Mg Tablet, 100 MG PO PRN QHS PRN for INSOMNIA, (Reported) Entered as Reported by: JU URRUTIA on 09/27/21438 Last Action: New Order on 09/27/21438 by JU URRUTIA Justicifation of Admission Dx: Justifications for Admission: Justification of Admission Dx: Yes DAVIS FRANZ MD Sep 27, 2021 13:38
--- NOTE | 2021-09-27 14:53 | CARD ---
MR#: [id number] Date of Study: 09/27/2021 Ordering Physician: MORAIMA MOON, Referring Physician: MORAIMA MOON Tech: Tracy Diehl [facility] APPROVED REPORT EXAM: Two-dimensional and M-mode echocardiogram with Doppler and color Doppler. Other Information Quality : Good Rhythm : NSR INDICATION Chest Pain RISK FACTORS Hypertension Obesity 2D DIMENSIONS RVDd3.3 (2.9-3.5cm)Left Atrium(2D)4.4 (1.6-4.0cm) IVSd1.2 (0.7-1.1cm)Aortic Root(2D)3.3 (2.0-3.7cm) LVDd4.6 (3.9-5.9cm)LVOT Diameter2.1 (1.8-2.4cm) PWd1.1 (0.7-1.1cm)LVDs3.6 (2.5-4.0cm) FS (%) 20.9 %SV41.2 ml LVEF(%)42.6 (>50%) Aortic Valve AoV Peak [place].174.4cm/sAoV VTI40.5cm AO Peak GR.12.2mmHgAO Mean GR.6mmHg Mitral Valve MV E Mcqpeffn47.1cm/sMV DECEL [id number] MV A Ibyxzlhm54.8cm/sE/A Ratio1.2 LEFT VENTRICLE The left ventricle is normal size. There is mild concentric left ventricular hypertrophy. The left ve ntricular systolic function is normal and the ejection fraction is within normal range. EF 55% There is normal LV segmental wall motion. The left ventricular diastolic function and filling is normal for age. RIGHT VENTRICLE The right ventricle is normal size. There is normal right ventricular wall thickness. The right ventr icular systolic function is normal. ATRIA The left atrium size is normal. The right atrium size is normal. The interatrial septum is intact wit h no evidence for an atrial septal defect or patent foramen ovale as noted on 2-D or Doppler imaging. AORTIC VALVE The aortic valve is normal in structure and function. Doppler and Color Flow revealed no significant aortic regurgitation. There is no significant aortic valvular stenosis. MITRAL VALVE The mitral valve is normal in structure and function. There is no evidence of mitral valve prolapse. There is no mitral valve stenosis. Doppler and Color-flow revealed trace mitral regurgitation. TRICUSPID VALVE The tricuspid valve is normal in structure and function. Doppler and Color Flow revealed no tricuspid valve regurgitation noted. There is no tricuspid valve stenosis. PULMONIC VALVE The pulmonary valve is normal in structure and function. Doppler and Color Flow revealed no pulmonic valvular regurgitation. There is no pulmonic valvular stenosis. GREAT VESSELS The aortic root is normal in size. The ascending aorta is normal in size. The IVC is normal in size a nd collapses >50% with inspiration. PERICARDIAL EFFUSION There is no evidence of significant pericardial effusion. Critical Notification Critical Value: No <Conclusion> The left ventricular systolic function is normal and the ejection fraction is within normal range. EF 55% There is normal LV segmental wall motion. Signed by : Yinka Soto, Electronically Approved : 09/27/2021 14:53:28
== END 2021-09-27 15:30 | disposition home or self-care (01) ==
LOC: ER 15:35 → INTOOBSV 19:56 → 2 NORTH 19:56
PROVIDERS: ADMIT Family Medicine; ATTEND Family Medicine
DX: R07.89 Other chest pain (principal); F41.9 Anxiety disorder, unspecified; F32.A Depression, unspecified; K21.9 Gastro-esophageal reflux disease without esophagitis; I10 Essential (primary) hypertension; K29.70 Gastritis, unspecified, without bleeding; M19.90 Unspecified osteoarthritis, unspecified site; G47.33 Obstructive sleep apnea (adult) (pediatric); K59.00 Constipation, unspecified; F17.200 Nicotine dependence, unspecified, uncomplicated; Z98.84 Bariatric surgery status; Z90.49 Acquired absence of other specified parts of digestive tract; Z79.899 Other long term (current) drug therapy; Z98.890 Other specified postprocedural states; Y99.0 Civilian activity done for income or pay
CPT/HCPCS: 36415; 71045; 80048; 80053; 80061; 80307; 81001; 83735; 83880; 84443; 84484; 85025; 93005; 93306; 96374; 96375; 96376; 99285; G0378; J2060; J2270; J2405; G0379; C8929